=== PATIENT | female | born 1945 | race Caucasian/White ===

== ENCOUNTER 2016-06-19 09:59 | Inpatient (IN) | payer MEDICARE, OTHER ==
[~2016-06-19] VITALS: Ht 162.6 cm; Wt 93.5 kg
[~2016-06-19 09:59] MED LIST: ASPI-558 PO; ATEN100T77 PO; ESOM40CA24 PO; ESTR1TAB88 PO; FISH1CAP29 PO; GEMF600T3 PO; LEVO50TA11 PO; MULT-795 PO; PRAM0.259 PO; SENN-125 PO; TIOT18CA6 INH; TRIA-15 PO; VITA1CAP PO
--- OUTSIDE RECORDS SUMMARY | 2016-06-19 10:01 | XMS REPORT | Continuity of Care Document ---
Author Author [facility] Organization [facility] Address Unknown Phone Unavailable Allergies Active Description Code Type Severity Reaction Onset Reported/Identified Relationship to Patient Clinical Status Yes Sulfa (Sulfonamide Antibiotics) Sulfa (Sulfonamide Antibiotics) Drug Allergy Mild RASH 2014 Yes atorvastatin calcium atorvastatin calcium Drug Allergy Unknown "CAN'T TOLERATE" 10/05/2014 Yes choline fenofibrate choline fenofibrate Drug Allergy Unknown "CAN'T TOLERATE" 10/05/2014 Yes ciprofloxacin ciprofloxacin Drug Allergy Unknown UNKNOWN 10/05/2014 Yes ciprofloxacin HCl ciprofloxacin HCl Drug Allergy Unknown UNKNOWN 10/05/2014 Yes ezetimibe ezetimibe Drug Allergy Unknown "CAN'T TOLERATE" 10/05/2014 Yes rosuvastatin calcium rosuvastatin calcium Drug Allergy Unknown "CANT TOLERATE" 10/05/2014 Medications Problems Procedures Results Encounters ACCT No. Visit Date/Time Discharge Status Pt. Type Provider Facility Loc./Unit Complaint [id number] 10/05/2014 17:18:00 2014 19:00:00 DIS Emergency Renetta MIRELES, Moose Harrell [facility] [id number] 01/22/2011 10:45:00 Inpatient
--- OUTSIDE RECORDS SUMMARY | 2016-06-19 10:01 | XMS REPORT ---
Author Author [facility] Organization Unknown Address Unknown Phone Unavailable Care Team Providers Care Iron Piler Name Role Phone UNASSIGNED DOCTORMD DOCTOR PP [phone] Reason For Visit Chief Complaint PAD,PA W PROB S HAWK-LT COMMON FEMORAL Social History Functional Status Vital Signs Results Problems Encounter Diagnosis No relevant problems exist. Encounters Encounter Diagnosis No relevant problems exist. Plan of Care Procedures No relevant procedures performed. Immunizations No immunizations administered or ordered. Hospital Course Hospital Discharge Instructions Allergies, Adverse Reactions, Alerts * lisinopril causes Severe tongue swelled. * Trilipix causes Severe tongue swelled. * Norvasc causes Unknown. * Cipro causes Unknown. * Sulfa (Sulfonamide Antibiotics) causes Unknown. * Ajgdxew-Itd-Ust Reductase Inhibitors causes Muscle Pain. * No Latex Allergy. * No IV Contrast Allergy. Medication It is the responsibility of the patient or patient representative personal service to confirm the list of medications with either the patient's personal care provider or the patient's follow-up care provider to ensure the patient has an appropriate list of medications to take at home. Discharge medications New medications* clopidogrel 75 mg Tablet, Ordered By: PARDEEP SERVIN MD Directions: 1 tablet oral daily Continued medications* triamterene-hydrochlorothiazid 75 mg-50 mg Tablet, Ordered By: PARDEEP SERVIN MD Directions: 1 tablet oral daily * atenolol 100 mg Tablet, Ordered By: PARDEEP SERVIN MD Directions: 1 tablet oral twice a day * Centrum Silver 1 tablet oral daily last dose 10-12-13 * Co-Enzyme Q 10-50 mg 1 capsule oral daily last dose 10-12-13 * Fish oil 1200 mg 1 capsule daily last dose 10-11-13 * estradiol 1 mg Tablet, Ordered By: PARDEEP SERVIN MD Directions: 1 tablet oral daily * gemfibrozil 600 mg Tablet, Ordered By: PARDEEP SERVIN MD Directions: 1 tablet oral twice a day * levothyroxine 50 mcg Tablet, Ordered By: PARDEEP SERVIN MD Directions: 1 tablet oral daily * esomeprazole magnesium (NexIUM) 40 mg capsule,delayed release(DR/EC), Ordered By: PARDEEP SERVIN MD Directions: 1 capsule oral daily * Poly-Iron 150 mg 1 capsule oral daily last dose 10-12-13 * aspirin 81 mg tablet,chewable, Ordered By: KELSIE Estrada HEADINGS Directions: 1 tablet oral daily Stopped medications* None
--- OUTSIDE RECORDS SUMMARY | 2016-06-19 10:02 | XMS REPORT ---
Author Author [facility] Organization Unknown Address Unknown Phone Unavailable Care Team Providers Care Plastic Outfitter Name Role Phone UNASSIGNED DOCTOR MD ALINE DOCTOR PP [phone] Reason For Visit Chief Complaint UNSTABLE ANGINA PVD Social History Functional Status Vital Signs Results Problems Encounter Diagnosis No relevant problems exist. Encounters Encounter Diagnosis No relevant problems exist. Plan of Care Procedures * Completed , on 08/04/2010 12:00 AM * Completed , on 08/04/2010 12:00 AM * Completed , on 08/04/2010 12:00 AM * Completed , on 08/04/2010 12:00 AM Immunizations No immunizations administered or ordered. Hospital Course Hospital Discharge Instructions Allergies, Adverse Reactions, Alerts * lisinopril causes Severe tongue swelled. * Trilipix causes Severe tongue swelled. * Norvasc causes Unknown. * Cipro causes Unknown. * Sulfa (Sulfonamide Antibiotics) causes Unknown. * Ipajabl-Vft-Htp Reductase Inhibitors causes Muscle Pain. * No Latex Allergy. * No IV Contrast Allergy. Medication It is the responsibility of the patient or patient merchandiser retail representative to confirm the list of medications with either the patient's personal care provider or the patient's follow-up care provider to ensure the patient has an appropriate list of medications to take at home. Discharge medications New medications* clopidogrel (Plavix) 75 mg Tablet, Ordered By: PARDEEP SERVIN MD Directions: 1 tablet oral daily Continued medications* atenolol 100 mg Tablet, Ordered By: PARDEEP SERVIN MD Directions: 1 tablet oral twice a day * lomzqyvn-rpy-dfkv-FA-lutein (Centrum Silver Women) 8 mg iron-400 mcg-300 mcg Tablet, Ordered By: PARDEEP SERVIN MD Directions: 1 tablet oral daily * coQ10 (ubiquinol) 50 mg Capsule, Ordered By: PARDEEP SERVIN MD Directions: 1 capsule oral daily * docosahexanoic acid 1200 mg Capsule, Ordered By: PARDEEP SERVIN MD Directions: 1 capsule oral daily * esomeprazole magnesium (NexIUM) 40 mg capsule,delayed release(DR/EC), Ordered By: PARDEEP SERVIN MD Directions: 1 capsule oral daily before breakfast * conjugated estrogens (Premarin) 0.9 mg Tablet, Ordered By: PARDEEP SERVIN MD Directions: 1 tablet oral daily with breakfast * triamterene-hydrochlorothiazid 75 mg-50 mg Tablet, Ordered By: PARDEEP SERVIN MD Directions: 1 tablet oral daily * pramipexole (Mirapex) 0.25 mg Tablet, Ordered By: PARDEEP SERVIN MD Directions: 1 tablet oral three times a day * gemfibrozil 600 mg Tablet, Ordered By: PARDEEP SERVIN MD Directions: 1 tablet oral twice a day * levothyroxine 50 mcg Tablet, Ordered By: PARDEEP SERVIN MD Directions: 1 tablet oral daily * polysaccharide iron complex 150 mg iron Capsule, Ordered By: PARDEEP SERVIN MD Directions: 1 capsule oral daily * aspirin 81 mg tablet,chewable, Ordered By: PARDEEP SERVIN MD Directions: 1 tablet oral daily * albuterol sulfate 90 mcg HFA Aerosol Inhaler, Ordered By: PARDEEP SERVIN MD Directions: 1 puff by inhalation four times daily PRN shortness of breath Stopped medications* None
--- OUTSIDE RECORDS SUMMARY | 2016-06-19 10:02 | XMS REPORT | Continuity of Care Document ---
Author Author [facility] Organization [facility] Address Unknown Phone Unavailable Support Name Relationship Address Phone KING DEJESUS MD Caregiver [address] [place] [address] Unavailable KEVIN HOFFMAN DO Caregiver [address] [place] [address] Unavailable MIROSLAVA RATLIFF Next Of Kin [address] [place] [address] Insurance Providers Guarantor Peng Ratliff Address [address] [place] [address] Email DENIED/NO TO PT PORT Payer [place] Policy Number [id number] Subscriber's Name Peng Ratliff Relationship 18 Self Group Number [id number] Effective Date 08 Payer Medicare Policy Number [id number] Subscriber's Name Peng Ratliff Relationship 18 Self Effective Date 08 Advance Directives Directive Response Recorded Date/Time Ordered Resuscitation Status Full Code 03/11/16 2:34pm Resuscitation Documents on File Y POSSIBLY 03/12/16 7:52am DPOA for Healthcare Only No 03/12/16 7:52am Living Will No 03/12/16 7:52am Problems Active Problems Medical Problem Onset Date Status Alcohol intoxication Unknown Acute COPD exacerbation Unknown Acute Essential (primary) hypertension Unknown Chronic Fall Unknown Acute Fibromyalgia Unknown Chronic Hematoma of scalp Unknown Acute Hypercholesteremia Unknown Chronic Rib pain on left side Unknown Acute Medications Current Home Medications Medication Dose Units Route Directions Days Qty Instructions Start Date Aspirin (Aspir 81) 81 Mg Tablet. 1 Tab Oral Daily 03/11/10 Atenolol 100 Mg Tablet 1 Tab Oral Twice A Day 12/13/08 Esomeprazole Mag Trihydrate (Nexium) 40 Mg Capsule. 1 Tab Oral Daily 12/13/08 Estradiol 1 Mg Tablet 1 Tab Oral Daily 03/08/13 Fish Oil/Shirley-3 Fatty Acids (Fish Oil 1,000 Mg Capsule) 1 Cap Capsule 1 Cap Oral Daily 12/13/08 Gemfibrozil 600 Mg Tablet 1 Tab Oral Twice A Day 03/26/15 Levothyroxine Sodium 50 Mcg Tablet 1 Tab Oral Daily 03/26/15 Multivitamins W-Minerals/Lut (Centrum Silver Tablet) 1 Tab Tablet 1 Tab Oral Daily 12/13/08 Pramipexole Di-Hcl (Pramipexole Dihydrochloride) 0.25 Mg Tablet 1 Tab Oral Three Times A Day 03/26/15 Sennosides/Docusate Sodium (Stool Softener Tablet) 1 Each Tablet 1 Tab Oral Daily 03/26/15 Tiotropium [place] (Spiriva) 18 Mcg Cap.w.dev 1 Puff Inhalation Daily 03/08/13 Triamterene/Hydrochlorothiazid (Triamterene-Hctz 75-50 Tab) 1 Tab Tablet 1 Tab Oral Daily 12/13/08 Vitamin B Complex 1 Each Capsule 1 Cap Oral Daily 03/11/16 Past Home Medications Medication Directions Ordered Status Clopidogrel Bisulfate (Plavix) 75 Mg Tablet, 75 Mg Oral Daily 03/10/10 Discontinued Dicyclomine Hcl 10 Mg Capsule, 10 Mg Oral Three Times A Day 12/13/08 Discontinued Social History Social History Problem Response Recorded Date/Time Onset Date Status Reason for Hospitalization COLONOSCOPY 03/12/2016 10:50am Not Applicable Not Applicable Chewing Tobacco Status No 03/08/2013 1:55pm Not Applicable Not Applicable Hx Substance Use No 03/12/2016 7:55am Not Applicable Not Applicable Hx Alcohol Use No 03/12/2016 7:55am Not Applicable Not Applicable Has the pt used tobacco in the last 12 months Yes 03/12/2016 7:55am Not Applicable Not Applicable Query Response Start Date Stop Date Smoking Status Current every day smoker Hospital Discharge Instructions Instructions: Care Instructions: I was in the hospital because (patient own words): COLONOSCOPY Discharge Diet: Resume previous diet Discharge Activity: Restricted today, as tolerated tomorrow. Follow Up Appointments: None Pending Lab / Results: No Pending Lab Expected Signs/Symptoms: None Notify Physician If: Severe abdominal pain. During Business Hours:: Please call the physician's office at [phone] and choose option 2. After Business Hours:: Please call [phone] and have the front end loader operator page Dr. Dejesus. Pain Management/Treatment: N/A Wound/Incision Care: N/A Condition at time of discharge: Good Plan of Care Discharge Date 03/12/16 11:45am Prescriptions See Medication Section Functional Status Query Response Date Recorded Ability to complete ADL's impeded by No change March 12, 2016 7:52am Allergies, Adverse Reactions, Alerts Allergen Type Severity Reaction Status Last Updated amlodipine besylate Allergy Unknown Active 03/12/16 atorvastatin calcium Allergy Mild ACHY Active 03/12/16 fenofibrate,micronized Allergy Mild INTOLERANT TO THIS MED Active 03/12/16 rosuvastatin calcium Allergy Mild ACHY Active 03/12/16 Fenofibrate Nanocrystallized Allergy Mild INTOLERANT TO THIS MED Active Choline Fenofibrate Allergy Unknown Active 03/12/16 Sulfa (Sulfonamide Antibiotics) Allergy Unknown Active 03/12/16 Lisinopril Allergy Unknown TOUNGE SWELLING Active 03/12/16 Cefdinir Adverse Reaction Unknown Active 03/12/16 Colesevelam Adverse Reaction Mild DOES NOT TOLORATE Active 03/12/16 Ezetimibe Allergy Mild ACHY Active 03/12/16 Immunizations Query Response on File Recorded Date/Time Hx Influenza Vaccination Y fall 201403/12/16 7:55am Hx Pneumococcal Vaccination Y 201403/12/16 7:55am Hx Tetanus, Diptheria, Pertussis UNKNOWN 09/30/14 12:44am Hx Influenza Vaccination Y fall 201403/12/16 7:55am Hx Tetanus Diptheria [facility] 09/30/14 12:44am Hx Tetanus, Diptheria, Pertussis UNKNOWN 09/30/14 12:44am Vital Signs Acute Vital Signs Vital Response Date/Time Temperature (Fahrenheit) 96.8 deg F (96.8 - 99.1) 03/12/2016 10:31am Temperature (Calculated Celsius) 36.81405 degrees C (36.0 - 37.3) 03/12/2016 10:31am Temperature Source Temporal 03/12/2016 10:31am Pulse Rate (adult) 74 bpm (60 - 100) 03/12/2016 11:01am Respiratory Rate 20 breaths/min (10 - 20) 03/12/2016 11:01am O2 Sat by Pulse Oximetry 95 % (90 - 100) 03/12/2016 11:01am Oxygen Delivery Method Room Air 03/12/2016 11:01am Blood Pressure 149/65 mm Hg 03/12/2016 11:01am Blood Pressure Source Automatic Cuff 03/12/2016 11:01am Height (Feet) 5 feet 03/12/2016 7:36am Height (Inches) 5.75 inches 03/12/2016 7:36am Weight (Kilograms) 89.400 kg 03/12/2016 7:36am Body Mass Index (BMI) 32.1 03/12/2016 7:36am Results No known relevant diagnostic tests, laboratory data and/or discharge summary. Procedures Procedure Status Date Provider(s) Colonoscopy with polypectomy and biopsy Completed 03/12/16 KING DEJESUS MD Encounters Encounter Location Arrival/Admit Date Discharge/Depart Date Attending Provider Departed [facility] 03/12/16 7:20am 03/12/16 11 :45am KING DEJESUS MD
--- NOTE | 2016-06-19 10:03 | NUR ---
DR LOYD IN
[2016-06-19] MEDS ORDERED: NORMAL SALINE 1,000 ML IV ONE (10:09)
--- OUTSIDE RECORDS SUMMARY | 2016-06-19 10:14 | XMS REPORT ---
Author Author [facility] Organization Unknown Address Unknown Phone Unavailable Care Team Providers Care Petroleum Geology Faculty Member Name Role Phone UNASSIGNED DOCTORMD DOCTOR PP [phone] Reason For Visit Chief Complaint PAD,PA W [...] * Sulfa (Sulfonamide Antibiotics) causes Unknown. * Ymargwj-Szc-Frp Reductase Inhibitors causes Muscle Pain. * No Latex Allergy. * No IV Contrast Allergy. Medication It is the responsibility of the patient or patient admissions representative to confirm the list of medications [...]
[2016-06-19] MEDS ORDERED: ALBUTEROL/IPRATROPIUM INHAL. 2.5mg-0.5mg/3ml Neb. AEROSOL ONE (10:15)
--- OUTSIDE RECORDS SUMMARY | 2016-06-19 10:15 | XMS REPORT | Continuity of Care Document ---
Author Author [facility] Organization [facility] Address Unknown Phone Unavailable Allergies Active [...] Status Pt. Type Provider Facility Loc./Unit Complaint [id number] 10/05/2014 17:18:00 2014 19:00:00 DIS Emergency Renetta MIRELES, Moose Harrell [facility] [id number] 01/22/2011 10:45:00 Inpatient
--- OUTSIDE RECORDS SUMMARY | 2016-06-19 10:15 | XMS REPORT ---
Author Author [facility] Organization Unknown Address Unknown Phone Unavailable Care Team Providers Care Institutional Custodian Name Role Phone UNASSIGNED DOCTOR MD ALINE DOCTOR PP [phone] Reason For Visit Chief Complaint UNSTABLE ANGINA [...] * Sulfa (Sulfonamide Antibiotics) causes Unknown. * Ofmgkov-Efb-Zyx Reductase Inhibitors causes Muscle Pain. * No Latex Allergy. * No IV Contrast Allergy. Medication It is the responsibility of the patient or patient in store marketing representative to confirm the list of medications [...] 1 tablet oral twice a day * tjilrpou-nac-fjga-FA-lutein (Centrum Silver Women) 8 mg iron-400 mcg-300 [...]
[2016-06-19] MEDS ORDERED: RESV1TAB PO (10:25)
[2016-06-19] MEDS ORDERED: IRON1CAP3 PO (10:25)
--- NOTE | 2016-06-19 10:25 | ERPDOC ---
Departure Disposition Decision Date: Jun 19, 2016 Disposition Decision Time: 12:45 Disposition: 02 TO [facility] Impression Impression Impression: Primary Impression: Pneumonia Additional Impression: Hypoxemia Severity: Moderate Condition: Stable Seen By: Physician only Referrals: KEVIN HOFFMAN DO (Family) Problems/Meds/Labs Reviewed?: Yes Medications reviewed and manag: Yes Follow up care ordered?: Yes Mental Status: Alert HPI - Dyspnea General Chief Complaint: Dyspnea/Respdistress Stated Complaint: SOA Time Seen by Provider: 10:09 HPI - Dyspnea Initial Comments Very pleasant 70-year-old female presents with dyspnea. Patient was brought in by EMS due to increasing sensation of dyspnea. She was 94% on room air when they arrived, however she was tripoding over trying to get breath. No nausea vomiting no diarrhea. She has had episodes like this previously. She did go to see her chemicals distiller yesterday, to have a vascular stent placed in each leg to increase blood flow, however when she arrived there they were concerned about her heart and instead did a cardiac catheter which showed one vessel at approximately 50%, per the patient. She is to go back next week to have the rest of the procedure done. Today she does not have any actual chest pain, but rather the respiratory issues, she called and spoke to her physician who told her to come to the emergency department as she may be heading towards an acute bronchitis. Patient does smoke 10-12 cigarettes a day, and has not quit despite frequent and multiple recommendations to do so. Allergies: Coded Allergies: Fenofibrate Nanocrystallized (Verified Allergy, Mild, INTOLERANT TO THIS MED, 06/19/16) atorvastatin calcium (Verified Allergy, Mild, ACHY, 06/19/16) ezetimibe (Verified Allergy, Mild, ACHY, 06/19/16) fenofibrate,micronized (Verified Allergy, Mild, INTOLERANT TO THIS MED, ) rosuvastatin calcium (Verified Allergy, Mild, ACHY, 06/19/16) Choline Fenofibrate (Verified Allergy, Unknown, 06/19/16) Sulfa (Sulfonamide Antibiotics) (Verified Allergy, Unknown, 06/19/16) amlodipine besylate (Verified Allergy, Unknown, 06/19/16) lisinopril (Verified Allergy, Unknown, TOUNGE SWELLING, 06/19/16) colesevelam (Verified Adverse Reaction, Mild, DOES NOT TOLORATE, 06/19/16) cefdinir (Verified Adverse Reaction, Unknown, 06/19/16) Past History Patient Surgical History Back surgery Hemorrhoid surgery Past Medical History Metabolic: hypercholesterolemia, hypertension Neurological: fibromyalgia Surgical History General: colonoscopy Family History Family PMH: FOUND: diabetes Vaccines Hx Influenza Vaccination: Yes (FALL 2014) Hx Pneumococcal Vaccination: Yes (2014) Social History Does patient use chewing tobac: No Second Hand Exposure: No Substance Use Type: does not use Substance last used: unknown Last Drink: unknown Record Review Pertinent history updated: Yes Review of Systems Cardiovascular Cardiac: see HPI Pulmonary Respiratory: see HPI All other Systems All Other Systems: Reviewed and Negative Physical Exam General General Nourishment: well nourished, well developed, appears stated age, adult Distress Description Patient is anxious, does not feel like she is getting enough air. General Body Habitus: well groomed Vitals and Pain First Documented Vital Signs Date Time Temp Pulse Resp B/P Pulse Ox O2 Delivery O2 Flow Rate FiO2 06/19/16 10:00 98.4 76 24 198/77 94 Room Air 06/19/16 10:59 2.00 Weight: Kilograms: 95.900 Height (feet): 5 Height (inches): 4.00 Triage Pain Scale: Normal Exams: Head: Normocephalic w/o trauma Neck: Full range of motion, without adenopathy, JVD, bruits or thyromegaly Chest/Resp: Clear all do, with good airflow, and symmetry bilaterally CV: Regular rate and rhythm, without murmur or gallop, Pulses 2+ all extremities, capillary refill, <2 seconds all ext., no pedal edema noted Abdomen: Bowel sounds positive, soft, non-tender, non-distended, no hepatosplenomegaly, masses or bruits noted Neurologic: Patient is alert, and oriented, cranial nerves, motor/sensory/ cerebellar, exams w/o gross deficits, to observation Psychiatric: Patient exhibits, appropriate attention, emotion and affect Differential Diagnoses Considering: Acute Bronchitis, Acute Respiratory Failure, Asthma Exacerbation, CHF, COPD Exacerbation, Costochondritis, Pneumonia, Pulmonary Edema, Pulmonary Embolus Progress Results/Orders Orders Procedure Category Date Status Time Cmp - Comprehensive LAB 06/19/16 Complete Metabolic 10:09 Probnp LAB 06/19/16 Complete 10:09 Cbc W/Auto LAB 06/19/16 Complete Diff-Reflex Manual 10:09 Blood Culture GUZMAN 06/19/16 In Process 10:09 D-Dimer LAB 06/19/16 Complete 10:09 Troponin I W LAB 06/19/16 Complete Hemolysis Index 10:09 Influenza A/B Screen LAB 06/19/16 Complete 10:09 EKG EKG 06/19/16 Logged 10:09 Chest, Pa & Lateral RAD 06/19/16 Taken 10:09 Iv Lock (Ed Only) EDM 06/19/16 Transmitted 10:09 Normal Saline (Normal PHA 06/19/16 In Process Saline Iv) 10:09 Peak Flow Measurement RT 06/19/16 Logged 10:09 Albuterol/Ipratropium PHA 06/19/16 Complete (Duoneb) 10:15 Methylprednisolone PHA 06/19/16 Complete Sod Succ (Solu-Medrol 10:15 Oxygen Administration EDM 06/19/16 Transmitted 10:09 UA, LAB 06/19/16 Complete Dip&Micro(Complete) & 11:09 Levofloxacin 750 Mg PHA 06/19/16 In Process Ivpb (Levaquin 750 M 12:30 Place In Facility: ED ADM 06/19/16 Verified Lab Results Laboratory Tests Test 06/19/16 10:20 06/19/16 11:09 White Blood Count 11.5T/MM3 Red Blood Count 3.69M/MM3 Hemoglobin 10.8GM/DL Hematocrit 32.4% Mean Corpuscular Volume 87.8UM3 Mean Corpuscular Hemoglobin 29.3UUG Mean Corpuscular Hemoglobin Concent 33.3GM/DL RDW Standard Deviation 48.1FL Platelet Count 185T/MM3 Mean Platelet Volume 10.1UM3 Immature Granulocyte % (Auto) 0.3% Neutrophils (%) (Auto) 76.5% Lymphocytes (%) (Auto) 11.4% Monocytes (%) (Auto) 10.1% Eosinophils (%) (Auto) 1.5% Basophils (%) (Auto) 0.2% Absolute Immature Granulocyte (auto 0.03T/MM3 Absolute Neutrophils (auto) 8.8T/MM3 Absolute Lymphocytes (auto) 1.3T/MM3 Absolute Monocytes (auto) 1.2T/MM3 Absolute Eosinophils (auto) 0.2T/MM3 Absolute Basophils (auto) 0.0T/MM3 D-Dimer < 150NG/ML Turbidity Sodium Level 134MEQ/L Potassium Level 4.0MEQ/L Chloride Level 99MEQ/L Carbon Dioxide Level 25MEQ/L Anion Gap 10MEQ/L Blood Urea Nitrogen 10.0MG/DL Creatinine 0.5MG/DL Glomerular Filtration Rate Calc 121 BUN/Creatinine Ratio 20RATIO Glucose Level 115MG/DL Calculated Osmolality 258MOSM/KG Calcium Level 9.2MG/DL Total Bilirubin 1.10MG/DL Icterus Index Aspartate Amino Transf (AST/SGOT) 39U/L Alanine Aminotransferase (ALT/SGPT) 35U/L Alkaline Phosphatase 72U/L Troponin I < 0.012ng/ml EH-Yah-O-Type Natriuretic Peptide 1140PG/ML Total Protein 7.2G/DL Albumin 4.0G/DL Globulin 3.2G/DL Albumin/Globulin Ratio 1.3RATIO Chemistry Specimen Hemolysis Influenza Type A Antigen Negative Influenza Type B Antigen Negative Urine Collection Type Voided-not cc-midstr Urine Color Yellow Urine Turbidity Cloudy Urine pH 6.0 Urine Specific [place] <=1.005 Urine Protein Negative Urine Glucose (UA) Negative Urine Ketones Negative Urine Blood 1+ Urine Nitrite Negative Urine Bilirubin Negative Urine Urobilinogen 0.2EU/DL Urine Leukocyte Esterase 3+ Urine RBC 5-10/HPF Urine WBC 10-20/HPF Urine Squamous Epithelial Cells 0-5 Urine Transitional Epithelial Cells 1-3/HPF Urine Bacteria 1+ Urine Culture Indicated Cult not indicated Medications Current ED Medications Sodium Chloride (Normal Saline IV) 1,000 ml @ 250 mls/hr Q4H ONCE IV Last administered on 06/19/16 10:21; Start 06/19/16 at 10:09; Stop 06/19/16 at 14:08 Albuterol/ Ipratropium (Duoneb) 3 ml O ONCE AEROSOL Last administered on 10:35; Start 06/19/16 at 10:15; Stop 06/19/16 at 10:16; Status DC Methylprednisolone Sodium Succinate 125 mg 125 mg O ONCE IV Last administered on 06/19/16 10:21; Start 06/19/16 at 10:15; Stop 06/19/16 at 10:16; Status DC Levofloxacin/ Dextrose/Water (LEVAQUIN 750 mg IVPB/D5W) 150 ml @ 100 mls/hr O ONCE IV Last administered on 06/19/16t 12:33; Start 06/19/16 at 12:30; Stop at 13:59 Progress Progress Pneumonia identified on x-ray. Patient is mildly elevated white count and requiring oxygen supplementation at 3 L/m nasal cannula. The patient received DuoNeb treatment which improved her breathing, she also received 125 mg of Solu- Medrol IV after the CBC was drawn. Blood cultures were obtained. Spoke with Dr. Patel, who is hospitalist. Patient is being admitted to hospitalist service with pneumonia has main diagnosis. She was given Levaquin 750 mg IV piggyback as she has an allergy to cephalosporins. She did have cardiac catheter on Tuesday which was negative, giving us significant reassurance that there is no cardiac involvement in this at this time. 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 AMELIA LOYD MD Jun 19, 2016 10:25
[2016-06-19] MEDS ORDERED: HERBAL LAX PO (10:29)
--- NOTE | 2016-06-19 10:34 | NUR ---
O2 SAO2 IS DECREASING TO 88% ON RA. RT HERE TO DO AERO [place]
[2016-06-19 10:43] LABS: BASOPHILS % (AUTO) 0.2 % (0-2); EOSINOPHILS # (AUTO) 0.2 T/MM3 (0-0.5); EOSINOPHILS % (AUTO) 1.5 % (0-4); HCT - HEMATOCRIT 32.4 % (36-46); HGB - HEMOGLOBIN 10.8 GM/DL (12-16); IMMATURE GRANULOCYTE # (AUTO) 0.03 T/MM3 (0.00-0.03); IMMATURE GRANULOCYTE % (AUTO) 0.3 % (0.0-0.5); LYMPHOCYTES # (AUTO) 1.3 T/MM3 (1-4.8); LYMPHOCYTES % (AUTO) 11.4 % (23-45); MEAN CORPUSCULAR HGB 29.3 UUG (26-34); MEAN CORPUSCULAR HGB CONC(MCHC 33.3 GM/DL (31-37); MEAN CORPUSCULAR VOLUME 87.8 UM3 (80-100); MEAN PLATELET VOLUME 10.1 UM3 (9.4-12.4); MONOCYTES # (AUTO) 1.2 T/MM3 (0-0.8); MONOCYTES % (AUTO) 10.1 % (0-9.0); NEUTROPHILS #(AUTO)-ABSOLUTE 8.8 T/MM3 (1.8-7.7); NEUTROPHILS % (AUTO) 76.5 % (33-66); RED BLOOD COUNT 3.69 M/MM3 (4.00-5.20); WBC - WHITE BLOOD COUNT 11.5 T/MM3 (4.5-11.0)
[2016-06-19 10:58] LABS: ALBUMIN/GLOBULIN RATIO 1.3 RATIO (1.1-2.2); ALKALINE PHOSPHATASE 72 U/L (38-126); ALT (SGPT) 35 U/L (9-52); ANION GAP 10 MEQ/L (5-15); AST (SGOT) 39 U/L (14-36); BUN/CREATININE RATIO 20 RATIO (6-26); CALCIUM 9.2 MG/DL (8.4-10.2); CHLORIDE 99 MEQ/L (98-107); CO2 - CARBON DIOXIDE 25 MEQ/L (22-30); CREATININE 0.5 MG/DL (0.7-1.2); GLOMERULAR FILTRATION RATE 121; GLUCOSE 115 MG/DL (65-110); SODIUM 134 MEQ/L (134-144); TOTAL PROTEIN 7.2 G/DL (6.3-8.2)
[2016-06-19 11:09] LABS: INFLUENZA A AG SCREEN NEGATIVE (NEGATIVE); INFLUENZA B AG SCREEN NEGATIVE (NEGATIVE)
[2016-06-19 11:10] LABS: PROBNP 1140 PG/ML (0-175)
--- NOTE | 2016-06-19 11:13 | NUR ---
ACTIVITY UP TO COMMODE FOR UA. PT BECAME SOA WITH INCREASED ACTIVITY
[2016-06-19 11:22] LABS: BLOOD, URINE 1+ (NEGATIVE); COLOR,URINE YELLOW (YELLOW); LEUKOCYTE ESTERASE ,URINE 3+ (NEGATIVE); NITRITE,URINE NEGATIVE (NEGATIVE); UROBILINOGEN,URINE 0.2 EU/DL (NORMAL)
--- NOTE | 2016-06-19 11:25 | NUR ---
DOZING SAO2 IS 93% ON O2
--- NOTE | 2016-06-19 11:30 | NUR ---
TO [facility] PER CART
--- NOTE | 2016-06-19 11:40 | NUR ---
RETURNED FROM [facility]
[2016-06-19 11:44] LABS: SQUAMOUS EPITHELIAL CELL,UR 0-5
[2016-06-19 11:45] LABS: BACTERIA,URINE 1+ (NEGATIVE)
--- NOTE | 2016-06-19 12:06 | NUR ---
O2 INCREASED PER PT REQUEST. SHE DOESN'T FEEL LIKE 2L IS HELPING. INCREASED TO 3L
--- NOTE | 2016-06-19 12:16 | NUR ---
DR LOYD IN
[2016-06-19] MEDS ORDERED: LEVOFLOXACIN 750 mg IVPB 750 MG in D5W 150 ML IV ONE (12:30)
--- OUTSIDE RECORDS SUMMARY | 2016-06-19 12:56 | XMS REPORT ---
Author Author GENERATED, SYSTEM Organization Unknown Address Unknown Phone Unavailable Care Team Providers Care Operator Maintainer Name Role Phone UNASSIGNED DOCTORMD DOCTOR PP [phone] Reason For Visit Chief Complaint PAD,PA W [...] * Sulfa (Sulfonamide Antibiotics) causes Unknown. * Ypjohgc-Exj-Yps Reductase Inhibitors causes Muscle Pain. * No Latex Allergy. * No IV Contrast Allergy. Medication It is the responsibility of the patient or patient patient account representative to confirm the list of medications [...]
--- OUTSIDE RECORDS SUMMARY | 2016-06-19 12:56 | XMS REPORT | Continuity of Care Document ---
Author Author [facility] Organization [facility] Address Unknown Phone Unavailable Allergies [...] Status Pt. Type Provider Facility Loc./Unit Complaint [id number] 10/05/2014 17:18:00 2014 19:00:00 DIS Emergency Renetta MIRELES, Moose Harrell [facility] MARNI [id number] 01/22/2011 10:45:00 Inpatient
--- OUTSIDE RECORDS SUMMARY | 2016-06-19 12:56 | XMS REPORT ---
Author Author GENERATED, SYSTEM Organization Unknown Address Unknown Phone Unavailable Care Team Providers Care Bakery Machine Mechanic Supervisor Name Role Phone UNASSIGNED DOCTOR MD ALINE DOCTOR PP [phone] Reason For Visit Chief Complaint UNSTABLE ANGINA [...] * Sulfa (Sulfonamide Antibiotics) causes Unknown. * Ybgtpur-Cnp-Yyp Reductase Inhibitors causes Muscle Pain. * No Latex Allergy. * No IV Contrast Allergy. Medication It is the responsibility of the patient or patient sales representative groceries to confirm the list of medications with [...] 1 tablet oral twice a day * zwjmnpge-tzs-ltxx-FA-lutein (Centrum Silver Women) 8 mg iron-400 mcg-300 [...]
--- NOTE | 2016-06-19 13:04 | NUR ---
REPORT TO JESSICA JAQUEZ
--- NOTE | 2016-06-19 13:12 | NUR ---
TRANSPORT PER ACCOMPANIED BY SHARRI KAPLAN RN. PT REMAINS ON O2 FOR SHE WAS NOT ABLE TO GO WITHOUT O2 BEFORE SAO2 DROPPED BELOW 90%
[2016-06-19 13:19] VITALS: Ht 162.6 cm; Wt 93.5 kg
[2016-06-19 13:28] VITALS: BP 165/71; PULSE 86; RESP 24; TEMP 95.9; O2SAT 92
[2016-06-19] MEDS ORDERED: HYDROCODONE/CHLORPHENIRAMINE ER 5 ML LIQUID PO PRN (14:30)
[2016-06-19] MEDS ORDERED: ACETAMINOPHEN 325 MG TABLET PO PRN (14:30)
[2016-06-19] MEDS ORDERED: LORAZEPAM 2 MG/ML INJECTION IV PRN (14:30)
[2016-06-19] MEDS ORDERED: GUAIFENESIN SYRUP 200 MG/10 ML PO PRN (14:30)
[2016-06-19] MEDS ORDERED: MELATONIN 5 MG TABLET PO PRN (14:30)
[2016-06-19] MEDS ORDERED: MILK OF MAGNESIA 30 ML SUSP PO PRN (14:30)
[2016-06-19] MEDS ORDERED: ALBUTEROL/IPRATROPIUM INHAL. 2.5mg-0.5mg/3ml Neb. AEROSOL PRN (14:30)
[2016-06-19] MEDS ORDERED: BUMETANIDE 1 MG/4 ML INJECTION IV ONE (14:30)
[2016-06-19] MEDS ORDERED: ONDANSETRON 4mg/2ml INJECTION IV PRN (14:30)
[2016-06-19] MEDS ORDERED: SENNA + DOCUSATE TAB PO PRN (14:30)
[2016-06-19] MEDS ORDERED: FLUCONAZOLE 100 MG TABLET PO ONE (14:30)
[2016-06-19] MEDS ORDERED: BISACODYL 10 MG SUPPOSITORY RECTALLY PRN (14:30)
[2016-06-19 15:15] VITALS: BP 167/79; PULSE 84; RESP 24; TEMP 96.2; O2SAT 96
--- NOTE | 2016-06-19 15:20 | HPPDOC ---
ISIDRA DELANEY FISHER CLAM 06/19/16 1440: HPI - Adult Date DATE: 06/19/16 TIME: 14:25 General Chief Complaint: SOA History of Present Illness Koki Gonzalez is a 70-year-old woman who lives at home with her . She began having difficulty breathing approximately 5 days ago, and it has progressively become worse. She was having chest pain, and was seen in the clinic by Dr. Wing, and underwent heart catheterization on 06/17/16 which reportedly showed mild to moderate coronary lesion, but no stent was placed. She was dismissed home, and her shortness of breath continued to worsen. She has tried using nebulized breathing treatments which help temporarily. She has started to cough, and it is productive with yellow sputum. She now has some bilateral rib pain and posterior rib pain that is worse with cough. She has felt lightheaded, and has nearly passed out a couple different times as she was walking. She becomes terribly short of breath with even light activity, and is unable to take even a few steps without needing to stop and rest. She has had great difficulty sleeping at night because of her breathing problems. She cannot lie supine, and has to be at an angle. She notes mild sinus problems and a dry throat as well. She denies any fevers, but has felt hot and cold. She denies abdominal pain, but hasn't felt much like eating or drinking anything. She has chronic constipation. She denies any dysuria. She has had increasing leg swelling, which is also fairly new onset over the last few days. Her , Aaron, states that she has had intermittent episodes of confusion, always precipitated when she is acutely short of breath and struggling to breathe. She also hasn't been sleeping well, and has probably had a total of 8 hours of sleep over the last 4-5 days. They activated 911 on 06/19/16, and she was transferred to [facility] emergency department. She received repeated nebulized albuterol treatments. Room air saturation was documented at 87% in the emergency department. She was also given Solu-Medrol and Levaquin. Chest x-ray showed bilateral effusions and right-sided pneumonia. Urinalysis was positive for UTI. White count was slightly elevated at 11.5. Chemistries were largely unremarkable with the exception of minimal elevation in AST. Influenza A and B were negative. Dr. Patel was notified, and the patient was admitted to inpatient status for further evaluation and treatment of her community-acquired pneumonia, COPD exacerbation, possible CHF, and acute hypoxia. Length of stay is expected to exceed 2 overnights for cardiopulmonary stabilization. Past Medical History Past Medical History Patient's Medical History: (1) COPD (chronic obstructive pulmonary disease) (2) Coronary artery disease (3) Hypercholesteremia (4) Essential (primary) hypertension (5) PVD (peripheral vascular disease) Permanent Comment: 06/03/16 - ARTERIAL EXTREMITY LOWER BI 1. Greater than 75% stenosis in the right mid SFA. 2. Greater than 75% stenosis in the left distal SFA. Last Edited By: Isidra Delaney on Jun 19, 2016 14:55 (6) Hypothyroidism (7) GERD (gastroesophageal reflux disease) (8) Piper's esophagus (9) Vitamin D deficiency (10) Urinary incontinence (11) Fibromyalgia (12) Tobacco dependency (13) Degeneration of L4-L5 intervertebral disc (14) Spinal stenosis of lumbar region with radiculopathy Permanent Comment: L4-L5 degenerative disc disease and spondylosis with severe lumbar stenosis and lumbar radiculopathy Last Edited By: Isidra Delaney on Jun 19, 2016 14:48 (15) Obesity (BMI 30-39.9) Surgical History Patient's Surgical History: BTL 1973 Vaginal hysterectomy 1983 Hemorrhoidectomy 1984. Cystocele repair 2004 Biopsy of right vulvar mass in 2008. Pathology report showed hemorrhagic pseudocyst. She has had 4 surgeries for this problem. Left leg arterial stent in 2009. EGD with biopsies at GE junction and colonoscopy with biopsy and polypectomy in 2009. Pathology showed Piper's esophagitis, negative for malignancy. Polyp was diagnosed as tubular adenoma. Partial vulvectomy in 2010. Left leg procedure in [address] Wing. Radical liu-vulvectomy in 2010. EGD and 2011, again showing Piper's esophagitis on pathology. Posterior lumbar L4-L5 laminectomy and foraminotomy for nerve root compression in [address] Celis EGD and total colonoscopy with polypectomy [place] [address] Baca, diagnosed with GERD, angiodysplasia lesion of ascending colon, internal and external hemorrhoids. Heart catheterization 06/17/[address] Wing - mild disease, no stents. Current Medications Home Meds Reported Medications [Herbal Lax] No Conflict Check, 2 TAB PO HS 06/19/16 Resveratrol/Quercetin (Resveratrol Plus 100 mg Tablet) 1 Each Tablet, 1 TAB PO DAILY 06/19/16 Vitamin B Complex (Vitamin B Complex) 1 Each Capsule, 1 CAP PO DAILY 03/11/16 Gemfibrozil (Gemfibrozil) 600 Mg Tablet, 600 MG PO BID 03/26/15 Pramipexole Di-HCl (Pramipexole Dihydrochloride) 0.25 Mg Tablet, 0.25 MG PO TID 03/26/15 Levothyroxine Sodium (Levothyroxine Sodium) 50 Mcg Tablet, 50 MCG PO ACB 03/26/15 Tiotropium [place] (Spiriva) 18 Mcg Cap.w.dev, 1 PUFF INH DAILY 03/08/13 Estradiol (Estradiol) 1 Mg Tablet, 1 MG PO HS 03/08/13 Aspirin (Aspir 81) 81 Mg Tablet.dr, 81 MG PO DAILY 03/11/10 Atenolol (Atenolol) 100 Mg Tablet, 100 MG PO BID 12/13/08 Esomeprazole Mag Trihydrate (Nexium) 40 Mg Capsule.dr, 40 MG PO DAILY 12/13/08 Triamterene/Hydrochlorothiazid (Triamterene-Hctz 75-50 Tab) 1 Tab Tablet, 0.5 TAB PO DAILY 12/13/08 Allergies: Coded Allergies: Fenofibrate Nanocrystallized (Verified Allergy, Mild, INTOLERANT TO THIS MED, 06/19/16) atorvastatin calcium (Verified Allergy, Mild, ACHY, 06/19/16) ezetimibe (Verified Allergy, Mild, ACHY, 06/19/16) fenofibrate,micronized (Verified Allergy, Mild, INTOLERANT TO THIS MED, ) rosuvastatin calcium (Verified Allergy, Mild, ACHY, 06/19/16) Choline Fenofibrate (Verified Allergy, Unknown, 06/19/16) Sulfa (Sulfonamide Antibiotics) (Verified Allergy, Unknown, 06/19/16) amlodipine besylate (Verified Allergy, Unknown, 06/19/16) lisinopril (Verified Allergy, Unknown, TOUNGE SWELLING, 06/19/16) colesevelam (Verified Adverse Reaction, Mild, DOES NOT TOLORATE, 06/19/16) cefdinir (Verified Adverse Reaction, Unknown, 06/19/16) Family History Family History: Mother at age 93 of old age. She had history of TIA, dementia, and hypertension Father at age 63 of kidney cancer. Brothers have heart disease, hypertension, dyslipidemia. No family history of blood clots or clotting disorders. Social History Smoking Status: Current every day smoker (used to smoke 2 packs a day, now smokes between 12 and 15 cigarettes per day) Does patient use chewing tobac: No # of Packs/Tins per Day: 0.7 # of Years: 50 Second Hand Exposure: No Substance Use Type: does not use Substance last used: unknown Alcohol Intake: former alcohol drinker Last Drink: unknown (she used to have a couple mixed drinks each night. 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 Mendez Microbiology Professor: Dr. Wing Review of Systems Constitutional: REPORTS: chills, dizziness (lightheaded), fever, syncope (near) Eyes Vision: DENIES: vision changes ENMT Sinuses: FOUND: congestion Mouth/Throat: REPORTS: dry mouth (& throat), DENIES: change in swallowing, sore throat Pulmonary Respiratory: cough, dyspnea, sputum (yellow/dark yellow) GI Upper Abdomen: DENIES: nausea, pain, vomiting Lower Abdomen: constipation (chronic) General: DENIES: dysuria, frequency Female: menopause Musculoskeletal General: DENIES: cramps Integumentary Skin: DENIES: infections, rash Neurological General: numbness (to balls of feet), syncope (near syncope), DENIES: aphasia, headache, seizures, vertigo Psychiatric Psychiatric: anxiety (with SOA), other (insomnia), DENIES: depression Endocrine heat/cold intolerance Hematologic/Lymphatic DENIES: anemia Allergic/Immunological DENIES: frequent infections All Other Systems All Other Systems: Reviewed (remainder of 10-point ROS Neg.) Physical Exam General General Nourishment: well nourished, well developed General Body Habitus: well groomed Vital Signs Vital Signs Date Time Temp Pulse Resp B/P Pulse Ox O2 Delivery O2 Flow Rate FiO2 06/19/16 13:28 95.9 86 24 165/71 92 Nasal Cannula 3.00 Height (Feet): 5 Height (Inches): 4.00 Eyes Brief: FOUND: PERRL, NOT FOUND: scleral icterus ENMT Brief: NOT FOUND: mucosa moist (slightly dry), pharnyx erythema Neck Brief: NOT FOUND: adenopathy, nuchal rigidity Respiratory Inspection: FOUND: increased effort, tachypnea Auscultation: FOUND: decreased, NOT FOUND: rales, rhonchi, wheezes Cardiovascular Auscultation: FOUND: S1, S2, regular Peripheral Pulses: 2+: Radial (L), Radial (R) Edema: 0: Anasarca, Arm (L), Arm (R), Face, 2+: Leg (L), Leg (R) Comments Unable to palpate pedal pulses - chronic per pt report and also noted in Dr. Wing's recent office note. She has known SFA occlusions B/L. Abdomen Inspection: NOT FOUND: distention Palpation: FOUND: soft, NOT FOUND: McBurney's point tender, Rendon's sign, involuntary guarding, rebound, tender, voluntary guarding Auscultation: FOUND: normo active Comments Ecchymosis to right groin from recent heart catheterization but no palpable hematoma Lymphatic (brief) Lymphatic Brief: NOT FOUND: adenopathy Musculoskeletal (brief) Musculoskeletal Brief: NOT FOUND: tenderness (calves are nontender) Integumentary (brief) Integumentary Brief: FOUND: dry, warm Integumentary General: FOUND: dry, warm Color: FOUND: pink Neurologic (brief) Neurological Brief: FOUND: cranial 2-12 intact (grossly intact) Neurologic GCS Eye Opening: (4)Spontaneous GCS Verbal: (5)Oriented GCS Motor: (6)Obeys Commands RN Documented GCS Total: 15 Psychiatric (brief) FOUND: alert, attentive, normal affect, oriented Laboratory Laboratory Tests Test 06/19/16 10:20 06/19/16 11:09 White Blood Count 11.5T/MM3 Red Blood Count 3.69M/MM3 Hemoglobin 10.8GM/DL Hematocrit 32.4% Mean Corpuscular Volume 87.8UM3 Mean Corpuscular Hemoglobin 29.3UUG Mean Corpuscular Hemoglobin Concent 33.3GM/DL RDW Standard Deviation 48.1FL Platelet Count 185T/MM3 Mean Platelet Volume 10.1UM3 Immature Granulocyte % (Auto) 0.3% Neutrophils (%) (Auto) 76.5% Lymphocytes (%) (Auto) 11.4% Monocytes (%) (Auto) 10.1% Eosinophils (%) (Auto) 1.5% Basophils (%) (Auto) 0.2% Absolute Immature Granulocyte (auto 0.03T/MM3 Absolute Neutrophils (auto) 8.8T/MM3 Absolute Lymphocytes (auto) 1.3T/MM3 Absolute Monocytes (auto) 1.2T/MM3 Absolute Eosinophils (auto) 0.2T/MM3 Absolute Basophils (auto) 0.0T/MM3 D-Dimer < 150NG/ML Turbidity Sodium Level 134MEQ/L Potassium Level 4.0MEQ/L Chloride Level 99MEQ/L Carbon Dioxide Level 25MEQ/L Anion Gap 10MEQ/L Blood Urea Nitrogen 10.0MG/DL Creatinine 0.5MG/DL Glomerular Filtration Rate Calc 121 BUN/Creatinine Ratio 20RATIO Glucose Level 115MG/DL Calculated Osmolality 258MOSM/KG Calcium Level 9.2MG/DL Total Bilirubin 1.10MG/DL Icterus Index Aspartate Amino Transf (AST/SGOT) 39U/L Alanine Aminotransferase (ALT/SGPT) 35U/L Alkaline Phosphatase 72U/L Troponin I < 0.012ng/ml FF-Goi-N-Type Natriuretic Peptide 1140PG/ML Total Protein 7.2G/DL Albumin 4.0G/DL Globulin 3.2G/DL Albumin/Globulin Ratio 1.3RATIO Chemistry Specimen Hemolysis Influenza Type A Antigen Negative Influenza Type B Antigen Negative Urine Collection Type Voided-not cc-midstr Urine Color Yellow Urine Turbidity Cloudy Urine pH 6.0 Urine Specific Fletcher <=1.005 Urine Protein Negative Urine Glucose (UA) Negative Urine Ketones Negative Urine Blood 1+ Urine Nitrite Negative Urine Bilirubin Negative Urine Urobilinogen 0.2EU/DL Urine Leukocyte Esterase 3+ Urine RBC 5-10/HPF Urine WBC 10-20/HPF Urine Squamous Epithelial Cells 0-5 Urine Transitional Epithelial Cells 1-3/HPF Urine Bacteria 1+ Urine Culture Indicated Cult not indicated Assessment & Plan Problems: (1) Acute respiratory failure with hypoxia Status: Acute (2) COPD (chronic obstructive pulmonary disease) Status: Chronic Qualifiers: COPD type: COPD with acute exacerbation Qualified Codes: J44.1 - Chronic obstructive pulmonary disease with (acute) exacerbation (3) Pneumonia Status: Acute (4) PVD (peripheral vascular disease) Status: Chronic Assessment & Plan: 06/03/16 - US ARTERIAL EXTREMITY LOWER BI 1. Greater than 75% stenosis in the right mid SFA. 2. Greater than 75% stenosis in the left distal SFA (5) Coronary artery disease Status: Chronic (6) Hypercholesteremia Status: Chronic (7) Essential (primary) hypertension Status: Chronic (8) Hypothyroidism Status: Chronic (9) GERD (gastroesophageal reflux disease) Status: Chronic (10) Spinal stenosis of lumbar region with radiculopathy (11) Fibromyalgia Status: Chronic (12) Obesity (BMI 30-39.9) Status: Chronic (13) Tobacco dependency Status: Chronic (14) Vitamin D deficiency Status: Chronic Plan/Intensity of Service Admit to inpatient status, Dr. Patel attending. Primary care physician: Dr. Mendez. CODE STATUS: DO NOT RESUSCITATE. 1. Acute hypoxic respiratory failure - supplemental oxygen * Multiple differentials, including COPD exacerbation, CHF/pulmonary edema, community-acquired pneumonia, DVT/PE. * COPD exacerbation - she received steroids in the emergency department. Continue with prednisone 40 mg daily. DuoNeb treatments every 6 hours and as needed. * CAP - breathing treatments and Levaquin. Cough medicine is also available. * Possible CHF and pleural effusions-Bumex 0.5 mg IV 1. Request records from [facility], including cardiac catheter report and echocardiogram. * Bilateral lower extremity edema, right greater than left - venous Doppler right lower extremity. Patient has risk factors for VTE because of hormonal replacement, smoking status, obesity, and recent surgical procedure (heart catheterization). Hold estradiol. Start prophylactic Lovenox. 2. Acute encephalopathy - improved. Suspect secondary to hypoxia, possibly sleep deprivation. 3. Peripheral vascular disease, severe - both SFAs have greater than 75% occlusion. She plans to have Dr. Wing address this in the outpatient setting 4. Tobacco dependency. She is interested in quitting, consult respiratory therapy for tobacco cessation information. Nicotine patch has been ordered. 5. Insomnia and anxiety related to shortness of breath - Ativan as needed. 6. Patient reports tendency for vaginal candidiasis with minimal antibiotics. Will give Diflucan 200 mg 1. Orders were discussed with Dr. Patel. DVT Prophylaxis: Lovenox Code Status Full Code Hospital Course Summary Disclaimer The hospital course summary below is not to be considered part of the above Progress Note. Hospital Course Summary 06/19/16 Admit to inpatient status, Dr. Patel attending. Primary care physician: Dr. Mendez. CODE STATUS: DO NOT RESUSCITATE. 1. Acute hypoxic respiratory failure - supplemental oxygen * Multiple differentials, including COPD exacerbation, CHF/pulmonary edema, community-acquired pneumonia, DVT/PE. * COPD exacerbation - she received steroids in the emergency department. Continue with prednisone 40 mg daily. DuoNeb treatments every 6 hours and as needed. * CAP - breathing treatments and Levaquin. Cough medicine is also available. * Possible CHF and pleural effusions-Bumex 0.5 mg IV 1. Request records from [facility], including cardiac catheter report and echocardiogram. * Bilateral lower extremity edema, right greater than left - venous Doppler right lower extremity. Patient has risk factors for VTE because of hormonal replacement, smoking status, obesity, and recent surgical procedure (heart catheterization). Hold estradiol. Start prophylactic Lovenox. 2. Acute encephalopathy - improved. Suspect secondary to hypoxia, possibly sleep deprivation. 3. Peripheral vascular disease, severe - both SFAs have greater than 75% occlusion. She plans to have Dr. Wing address this in the outpatient setting 4. Tobacco dependency. She is interested in quitting, consult respiratory therapy for tobacco cessation information. Nicotine patch has been ordered. 5. Insomnia and anxiety related to shortness of breath - Ativan as needed. 6. Patient reports tendency for vaginal candidiasis with minimal antibiotics. Will give Diflucan 200 mg 1. PK PATEL MD 06/19/16 6949: Past Medical History Current Medications Home Meds Reported Medications [Herbal Lax] No Conflict Check, 2 TAB PO HS 06/19/16 Resveratrol/Quercetin (Resveratrol Plus 100 mg Tablet) 1 Each Tablet, 1 TAB PO DAILY 06/19/16 Vitamin B Complex (Vitamin B Complex) 1 Each Capsule, 1 CAP PO DAILY 03/11/16 Gemfibrozil (Gemfibrozil) 600 Mg Tablet, 600 MG PO BID 03/26/15 Pramipexole Di-HCl (Pramipexole Dihydrochloride) 0.25 Mg Tablet, 0.25 MG PO TID 03/26/15 Levothyroxine Sodium (Levothyroxine Sodium) 50 Mcg Tablet, 50 MCG PO ACB 03/26/15 Tiotropium [place] (Spiriva) 18 Mcg Cap.w.dev, 1 PUFF INH DAILY 03/08/13 Estradiol (Estradiol) 1 Mg Tablet, 1 MG PO HS 03/08/13 Aspirin (Aspir 81) 81 Mg Tablet.dr, 81 MG PO DAILY 03/11/10 Atenolol (Atenolol) 100 Mg Tablet, 100 MG PO BID 12/13/08 Esomeprazole Mag Trihydrate (Nexium) 40 Mg Capsule.dr, 40 MG PO DAILY 12/13/08 Triamterene/Hydrochlorothiazid (Triamterene-Hctz 75-50 Tab) 1 Tab Tablet, 0.5 TAB PO DAILY 12/13/08 Allergies: Coded Allergies: Fenofibrate Nanocrystallized (Verified Allergy, Mild, INTOLERANT TO THIS MED, 06/19/16) atorvastatin calcium (Verified Allergy, Mild, ACHY, 06/19/16) ezetimibe (Verified Allergy, Mild, ACHY, 06/19/16) fenofibrate,micronized (Verified Allergy, Mild, INTOLERANT TO THIS MED, ) rosuvastatin calcium (Verified Allergy, Mild, ACHY, 06/19/16) Choline Fenofibrate (Verified Allergy, Unknown, 06/19/16) Sulfa (Sulfonamide Antibiotics) (Verified Allergy, Unknown, 06/19/16) amlodipine besylate (Verified Allergy, Unknown, 06/19/16) lisinopril (Verified Allergy, Unknown, TOUNGE SWELLING, 06/19/16) colesevelam (Verified Adverse Reaction, Mild, DOES NOT TOLORATE, 06/19/16) cefdinir (Verified Adverse Reaction, Unknown, 06/19/16) Assessment & Plan Assessment I have independently evaluated and examined this patient. I reviewed the chart, the patient's history, and the FISHER CLAM's documented findings as above. We discussed and formulated the assessment and plan as above with additions as below: Mrs. Gonzalez has multiple chronic problems as noted above. She underwent cardiac catheterization yesterday due to recent exertional dyspnea. > 50% stenosis of a single-vessel reported. Her reports the patient has been able to walk no more than from room to room for several days and today could only take a few steps without stopping to rest and becoming very dyspneic. She denied chest pain or sputum production (until today) but has had increasing cough-especially today. She describes fevers and chills overnight with what sound like rigors. Patient reports increased edema from baseline. On examination the patient appears to be moderately dyspneic at rest, she defers history to her due to dyspnea. Breath sounds are diminished throughout and no wheezing or rhonchi are appreciated although breath sounds are absent the lower third of the right lung posteriorly and laterally. Cardiac exam regular. +2 edema RLE with pitting, +1 LLE. Chest x-ray reviewed by myself demonstrating right lower lobe infiltrate, possible infiltrate left lower lobe although less distinct and increased vascular markings. Treatment for pneumonia initiated as above. Agree with diuresis. Venous Doppler negative for DVT. In addition to above diagnoses please add: #1 normocytic anemia Plan/Intensity of Service Records requested from recent cardiac catheterization in [place], discussed with Dr. Pineda, chest x-ray reviewed by myself, laboratory data reviewed. Anticipate medical stabilization require greater than 48 hours of hospitalization. Inpatient status. ISIDRA DELANEY APRN Jun 19, 2016 14:40 PK PATEL MD Jun 19, 2016 18:59
[2016-06-19] MEDS: ENOXAPARIN 40 MG/0.4 ML INJECTION SQ SCH (15:44)
[2016-06-19] MEDS: NICOTINE 21 MG PATCH TD PRN (16:58)
[2016-06-19] MEDS: GEMFIBROZIL 600 MG TABLET PO SCH (16:59)
[2016-06-19] MEDS: PRAMIPEXOLE 0.25 MG TABLET PO SCH (16:59)
[2016-06-19] MEDS: ALBUTEROL/IPRATROPIUM INHAL. 2.5mg-0.5mg/3ml Neb. AEROSOL SCH ×2 (17:02→22:55)
[2016-06-19 17:03] VITALS: O2SAT 97
--- NOTE | 2016-06-19 17:28 | NUR ---
ADMIT PATIENT ARRIVED TO ROOM 164 ON THE MEDICAL UNIT FROM ED AT 1315 BY WC. PT IS A&OX3 AND TRANSFERS WITH 1 SBA. PT REPORTS SOA WITH ACTIVITY. VS STABLE ON 3L NC. PT DENIES CHEST PAIN. AT BEDSIDE. PATIENT ORIENTED TO SURROUNDINGS. LEFT FOREARM IV LOCK FLUSHES WELL. WILL CONTINUE TO MONITOR.
[2016-06-19 17:32] VITALS: RESP 22
[2016-06-19 20:57] VITALS: BP 167/79; PULSE 80; RESP 22; TEMP 96.2; O2SAT 97
[2016-06-19] MEDS: MENTHOL COUGH DROPS (RICOLA) MM PRN ×2 (21:44→21:46)
[2016-06-19] MEDS: BENZONATATE 200 MG CAPSULE PO PRN (21:44)
[2016-06-19] MEDS: ATENOLOL 100 MG TABLET PO SCH (21:45)
[2016-06-19 23:57] VITALS: BP 163/64; PULSE 79; RESP 18; TEMP 96.5; O2SAT 96
[2016-06-19] MEDS: DiphenhydrAMINE 25 MG CAPSULE PO PRN (23:59)
[2016-06-20] MEDS: MORPHINE SULFATE 2 MG SYRINGE IV PRN (01:16)
[2016-06-20] MEDS: ALBUTEROL/IPRATROPIUM INHAL. 2.5mg-0.5mg/3ml Neb. AEROSOL SCH ×4 (02:30→19:19)
--- NOTE | 2016-06-20 02:54 | NUR ---
sleep pt having trouble getting to sleep. Melatonin, benadryl tried 1st then MS at 0100. Pt stated her restless legs not bothering her at this time.
[2016-06-20 06:26] LABS: BASOPHILS % (AUTO) 0.1 % (0-2); HCT - HEMATOCRIT 30.1 % (36-46); HGB - HEMOGLOBIN 9.9 GM/DL (12-16); IMMATURE GRANULOCYTE # (AUTO) 0.03 T/MM3 (0.00-0.03); IMMATURE GRANULOCYTE % (AUTO) 0.3 % (0.0-0.5); LYMPHOCYTES # (AUTO) 0.9 T/MM3 (1-4.8); LYMPHOCYTES % (AUTO) 7.9 % (23-45); MEAN CORPUSCULAR HGB CONC(MCHC 32.9 GM/DL (31-37); MEAN CORPUSCULAR VOLUME 88.3 UM3 (80-100); MEAN PLATELET VOLUME 10.8 UM3 (9.4-12.4); MONOCYTES # (AUTO) 0.9 T/MM3 (0-0.8); MONOCYTES % (AUTO) 8.4 % (0-9.0); NEUTROPHILS #(AUTO)-ABSOLUTE 9.1 T/MM3 (1.8-7.7); NEUTROPHILS % (AUTO) 83.3 % (33-66); RED BLOOD COUNT 3.41 M/MM3 (4.00-5.20)
[2016-06-20] MEDS: PANTOPRAZOLE 40 MG TABLET PO SCH (06:30)
[2016-06-20] MEDS: LEVOFLOXACIN 750 MG TABLET PO SCH (06:30)
[2016-06-20] MEDS: LEVOTHYROXINE 50 MCG TABLET PO SCH (06:30)
[2016-06-20] MEDS: BENZONATATE 200 MG CAPSULE PO PRN ×2 (06:32→17:11)
[2016-06-20 06:34] LABS: ANION GAP 8 MEQ/L (5-15); BUN/CREATININE RATIO 28 RATIO (6-26); CHLORIDE 100 MEQ/L (98-107); CO2 - CARBON DIOXIDE 28 MEQ/L (22-30); CREATININE 0.5 MG/DL (0.7-1.2); GLOMERULAR FILTRATION RATE 121; GLUCOSE 149 MG/DL (65-110); POTASSIUM 3.8 MEQ/L (3.6-5); SODIUM 136 MEQ/L (134-144)
[2016-06-20 07:06] VITALS: O2SAT 97
[2016-06-20] MEDS: GEMFIBROZIL 600 MG TABLET PO SCH ×2 (07:37→17:11)
[2016-06-20 07:40] VITALS: BP 157/71; PULSE 84; RESP 18; TEMP 95.3; O2SAT 95
--- NOTE | 2016-06-20 07:45 | NUR ---
status Pt A/O x3, V/S stable on 3L. Pt denies pain at this time, restless legs doing well this shift, no PRN meds for pain. MS given 1x at 0115 to help with sleep relaxation, she was able to sleep rest of shift. Pt ambulating well in room, denies SOA or dizziness at this time. Changed to up at nikolas in room, Pt will call if SOA or needs help ambulating. Urinating well during shift, no BM.
[2016-06-20] MEDS: ASPIRIN *EC* 81mg TABLET PO SCH (08:42)
[2016-06-20] MEDS: ATENOLOL 100 MG TABLET PO SCH ×2 (08:42→20:56)
[2016-06-20] MEDS: PRAMIPEXOLE 0.25 MG TABLET PO SCH ×3 (08:42→17:11)
[2016-06-20] MEDS: POLYETHYL.GLYCOL 3350 PACKET 17gm PO SCH (08:42)
[2016-06-20] MEDS: HCTZ PO SCH (08:42)
[2016-06-20] MEDS: ENOXAPARIN 40 MG/0.4 ML INJECTION SQ SCH (08:42)
[2016-06-20] MEDS: TRIAMTERENE PO SCH (08:42)
[2016-06-20] MEDS: PredniSONE 20 MG TABLET PO SCH (08:42)
[2016-06-20 08:59] VITALS: RESP 18
[2016-06-20] MEDS ORDERED: RESVERATROL PLUS PO SCH (09:00)
[2016-06-20] MEDS: TIOTROPIUM 18mcg/cap HANDIHALER ORAL INH SCH (09:41)
--- NOTE | 2016-06-20 13:50 | DI ---
Indication: ITS.REASON: rt leg swelling PROCEDURE: US VENOUS DUPLEX, LOWER EXT RT: Encounter: Initial Comparison: None Technique: Color Doppler duplex and grayscale sonographic imaging of the right lower extremity was performed. Findings: There is no evidence for acute deep venous thrombosis in the right thigh. Specifically, serial graded compression was performed from the inguinal ligament to the popliteal bifurcation, on the right thigh, demonstrating appropriate compressibility of the deep venous system. In addition, color and pulsed Doppler demonstrate appropriate spontaneous flow, variation with respiration, and augmentation with calf compression. At the ankle, normal flow is identified in the posterior tibial veins; these vessels are also normal in caliber. Impression: No evidence of acute DVT in the right lower limb. There is a preliminary report by virtual radi[facility]. .
--- NOTE | 2016-06-20 14:25 | DI ---
INDICATION: ITS.REASON: dyspnea PROCEDURE: CHEST 2-VIEWS UPRIGHT (PA \T\ LAT) Encounter: Initial COMPARISON: March 26, 2015 FINDINGS: Increasing bilateral pleural effusions with hazy lower lobe airspace opacities. No pneumothorax. Stable bilateral peripheral densities could be due to calcified granulomas. Heart size and mediastinal contours are stable. Pulmonary vascularity is more congested. Impression: Worsening moderate CHF. .
[2016-06-20 15:00] VITALS: BP 134/62; PULSE 70; RESP 18; TEMP 97.1; O2SAT 95
--- NOTE | 2016-06-20 15:13 | PNPDOC ---
MONSERRAT FALLON V TRAVEL COTA 06/20/16 1505: Subjective Date DATE: 06/20/16 TIME: 15:02 Subjective Koki is seen this afternoon while resting in her room. She is currently on 3 liters of oxygen by nasal cannula and continues to have episodes of coughing. She feels tightness in her lungs. Overall, she feels that her breathing is better today, and can tell a difference following breathing treatments. She denies having chest pain or abdominal pain. Does request to increase bowel motivation. Objective Vital Signs Vital signs Vital Signs Date Time Temp Pulse Resp B/P Pulse Ox O2 Delivery O2 Flow Rate FiO2 06/20/16 13:37 12 06/20/16 13:37 66 06/20/16 07:40 95.3 157/71 95 Nasal Cannula 3.00 Height (Feet): 5 Height (Inches): 4.00 Weight (Kilograms): 95.900 General General Appearance: Alert, Orientated x 3, Cooperative, No Acute Distress Eyes (Brief) Eyes: FOUND: EOMI ENMT (Brief) ENMT: FOUND: mucosa moist, normal dentition, NOT FOUND: pharnyx erythema Neck (Brief) Neck: FOUND: midline, NOT FOUND: adenopathy, carotid bruits, tracheal deviation Respiratory (Brief) Respiratory: FOUND: wheezes Comments Diminished bases with faint wheezing Cardiovascular (Brief) Cardiac: FOUND: regular rate, regular rhythm, NOT FOUND: murmur, pedal edema Capillary Refill: <2 sec Abdomen (Brief) Abdominal: FOUND: BS normo active x4, soft, NOT FOUND: distended, tender Lymphatic (Brief) Lymphatic: NOT FOUND: adenopathy Musculoskeletal (Brief) Musculoskeletal: NOT FOUND: tenderness Integumentary (Brief) Integumentary: FOUND: dry, pink, warm Neurologic (Brief) Neurological: FOUND: cranial 2-12 intact Psychiatric (Brief) Psychiatric: FOUND: alert, attentive, normal affect, oriented Laboratory Laboratory Laboratory Tests 06/19/16 10:20 06/20/16 05:21 Laboratory Tests 06/19/16 10:20 06/20/16 05:21 Microbiology Microbiology Microbiology Date/Time Source Procedure Growth Status 06/19/16 10:34 Peripheral/Iv Start Blood Culture - Preliminary NO GROWTH AFTER 24 HOURS Resulted 06/19/16 10:30 Peripheral/Iv Start Blood Culture - Preliminary NO GROWTH AFTER 24 HOURS Resulted 06/19/16 19:51 Sputum Expectorated Sputum Gram Stain - Final Resulted 06/19/16 19:51 Sputum Expectorated Sputum Sputum Culture - Preliminary CULTURE INITIATED - RESULTS PENDING Resulted Assessment & Plan Problems: (1) Acute respiratory failure with hypoxia Status: Acute (2) COPD (chronic obstructive pulmonary disease) Status: Chronic Qualifiers: COPD type: COPD with acute exacerbation Qualified Codes: J44.1 - Chronic obstructive pulmonary disease with (acute) exacerbation (3) Pneumonia Status: Acute (4) PVD (peripheral vascular disease) Status: Chronic Assessment & Plan: 06/03/16 - US ARTERIAL EXTREMITY LOWER BI 1. Greater than 75% stenosis in the right mid SFA. 2. Greater than 75% stenosis in the left distal SFA (5) Coronary artery disease Status: Chronic (6) Hypercholesteremia Status: Chronic (7) Essential (primary) hypertension Status: Chronic (8) Hypothyroidism Status: Chronic (9) GERD (gastroesophageal reflux disease) Status: Chronic (10) Spinal stenosis of lumbar region with radiculopathy (11) Fibromyalgia Status: Chronic (12) Obesity (BMI 30-39.9) Status: Chronic (13) Tobacco dependency Status: Chronic (14) Vitamin D deficiency Status: Chronic (15) Anemia, normocytic normochromic Plan/Intensity of Service 06/20/16 Continue with supplemental oxygen to maintain adequate saturations. Currently requiring 3 liters. Recent does not use home oxygen. Scheduled DuoNeb breathing treatments every 6 hours and Spiriva Prednisone for pulmonary inflammation. Continue Levaquin for antimicrobial coverage, preliminary blood culture and sputum culture are negative Encourage tobacco cessation In regards to encephalopathy, patient appears to be alert, oriented and able to give specific details. Increase senna plus to scheduled given concern for constipation Lower extremity sonogram was negative for acute DVT Code Status Do Not Resuscitate Hospital Course Summary Disclaimer The hospital course summary below is not to be considered part of the above Progress Note. Hospital Course Summary 06/19/16 Admit to inpatient status, Dr. Patel attending. Primary care physician: Dr. Mendez. CODE STATUS: DO NOT RESUSCITATE. 1. Acute hypoxic respiratory failure - supplemental oxygen * Multiple differentials, including COPD exacerbation, CHF/pulmonary edema, community-acquired pneumonia, DVT/PE. * COPD exacerbation - she received steroids in the emergency department. Continue with prednisone 40 mg daily. DuoNeb treatments every 6 hours and as needed. * CAP - breathing treatments and Levaquin. Cough medicine is also available. * Possible CHF and pleural effusions-Bumex 0.5 mg IV 1. Request records from [facility], including cardiac catheter report and echocardiogram. * Bilateral lower extremity edema, right greater than left - venous Doppler right lower extremity. Patient has risk factors for VTE because of hormonal replacement, smoking status, obesity, and recent surgical procedure (heart catheterization). Hold estradiol. Start prophylactic Lovenox. 2. Acute encephalopathy - improved. Suspect secondary to hypoxia, possibly sleep deprivation. 3. Peripheral vascular disease, severe - both SFAs have greater than 75% occlusion. She plans to have Dr. Wing address this in the outpatient setting 4. Tobacco dependency. She is interested in quitting, consult respiratory therapy for tobacco cessation information. Nicotine patch has been ordered. 5. Insomnia and anxiety related to shortness of breath - Ativan as needed. 6. Patient reports tendency for vaginal candidiasis with minimal antibiotics. Will give Diflucan 200 mg 1. 06/20/16 Continue with supplemental oxygen to maintain adequate saturations. Currently requiring 3 liters. Recent does not use home oxygen. Scheduled DuoNeb breathing treatments every 6 hours and Spiriva Prednisone for pulmonary inflammation. Continue Levaquin for antimicrobial coverage, preliminary blood culture and sputum culture are negative Encourage tobacco cessation In regards to encephalopathy, patient appears to be alert, oriented and able to give specific details. Increase senna plus to scheduled given concern for constipation Lower extremity sonogram was negative for acute DVT PK PATEL MD 06/20/16 1626: Assessment & Plan Assessment I have independently evaluated and examined this patient. I reviewed the chart, the patient's history, and the TRAVEL COTA's documented findings as above. We discussed and formulated the assessment and plan as above with additions as below: Mrs. Gonzalez reports that she continues to become dyspneic intermittently but is improved from admission. Dyspnea occurs primarily just before her next breathing treatment is due. She is able to ambulate comfortably in the room today and is speaking in full sentences. Cough remains increased from baseline but she denies sputum production. Fluid balance negative a little over 1 L since admission. Respirations are nonlabored but breath sounds are diminished and she has crackles at the left greater than right base with diminished breath sounds on the base at the right. No wheezing was appreciated at time of my exam. Neck veins are not distended in cardiac rhythm is regular. There is persistent trace bilateral edema graded +1. Formal chest x-ray report did not confirm suspicion of an infiltrate but was read as CHF. Continue current antibiotics pending cultures tomorrow. Lasix today-20 mg IV and then schedule for tomorrow morning. Continues to require supplemental oxygen-new from baseline. Will contact cardiology office tomorrow for most recent cardiac assessment- heart catheter 2 days ago without reported vascular disease but ejection fraction unknown. In addition to above diagnoses please add: #1 acute congestive heart failure Plan/Intensity of Service Chest x-ray report reviewed, repeat x-ray ordered for tomorrow. Laboratory data reviewed. MONSERRAT FALLON APRN Jun 20, 2016 15:05 PK PATEL MD Jun 20, 2016 16:26
[2016-06-20] MEDS ORDERED: FUROSEMIDE 20 MG/2 ML INJECTION IV ONE (16:30)
[2016-06-20] MEDS: NICOTINE PATCH REMOVAL TD PRN (17:11)
[2016-06-20] MEDS: NICOTINE 21 MG PATCH TD PRN (17:11)
--- NOTE | 2016-06-20 18:26 | NUR ---
Status Patient has been up by self in room today. Tolerating activity well. Denies pain when asked. Weaned down to 2 L O2 by NC. Patient has numerous visitors today. Minimal needs from staff. Call light within reach.
[2016-06-20] MEDS: SENNA + DOCUSATE TAB PO SCH (20:55)
[2016-06-20 20:57] VITALS: PULSE 72; O2SAT 95
[2016-06-20 21:03] VITALS: RESP 18
--- NOTE | 2016-06-20 22:26 | NUR ---
Chart Check 24 hour chart check completed
[2016-06-21] VITALS (12 sets, daily range): BP systolic 129–162; BP diastolic 59–72; PULSE 68–84; RESP 17–22; TEMP 95.8–96.5; O2SAT 92–100
[2016-06-21] MEDS: ALBUTEROL/IPRATROPIUM INHAL. 2.5mg-0.5mg/3ml Neb. AEROSOL SCH ×4 (00:25→19:58)
[2016-06-21] MEDS: MORPHINE SULFATE 2 MG SYRINGE IV PRN (00:37)
[2016-06-21] MEDS: DiphenhydrAMINE 25 MG CAPSULE PO PRN (00:38)
[2016-06-21 06:06] LABS: ALBUMIN 3.7 G/DL (3.5-5.0); ANION GAP 6 MEQ/L (5-15); BUN/CREATININE RATIO 35 RATIO (6-26); CALCIUM 9.5 MG/DL (8.4-10.2); CHLORIDE 99 MEQ/L (98-107); CO2 - CARBON DIOXIDE 29 MEQ/L (22-30); CREATININE 0.6 MG/DL (0.7-1.2); GLOMERULAR FILTRATION RATE 98; GLUCOSE 115 MG/DL (65-110); MAGNESIUM 2.2 MG/DL (1.6-2.3); PHOSPHORUS 3.6 MG/DL (2.5-4.5); POTASSIUM 3.9 MEQ/L (3.6-5); SODIUM 134 MEQ/L (134-144)
[2016-06-21 06:34] LABS: PROBNP 808 PG/ML (0-175)
[2016-06-21] MEDS: LEVOTHYROXINE 50 MCG TABLET PO SCH (07:01)
[2016-06-21] MEDS: LEVOFLOXACIN 750 MG TABLET PO SCH (07:01)
[2016-06-21] MEDS: PANTOPRAZOLE 40 MG TABLET PO SCH (07:01)
--- NOTE | 2016-06-21 07:05 | NUR ---
Status Pt stated that she slept great during the night. This RN attempted to minimize interruptions during the night as much as possible. Pt requested PRN morphine and PRN Benadryl to facilitate sleep. On 2 L O2 via NC. VSS. Shift report given to LEONID Han.
[2016-06-21] MEDS: GEMFIBROZIL 600 MG TABLET PO SCH ×2 (07:55→17:16)
--- NOTE | 2016-06-21 08:39 | DI ---
INDICATION: ITS.REASON: CHF PROCEDURE: CHEST 2-VIEWS UPRIGHT (PA \T\ LAT) Encounter: Initial COMPARISON: June 19, 2016 FINDINGS: Small right pleural effusion is increased. Continued right basilar airspace opacity. Upper lung do are clear. No pneumothorax. Heart size and mediastinal contours are stable. Pulmonary vascular congestion is stable. Impression: Slight increase in right pleural effusion. .
[2016-06-21] MEDS: ASPIRIN *EC* 81mg TABLET PO SCH (08:49)
[2016-06-21] MEDS: POLYETHYL.GLYCOL 3350 PACKET 17gm PO SCH (08:49)
[2016-06-21] MEDS: PredniSONE 20 MG TABLET PO SCH (08:49)
[2016-06-21] MEDS: HCTZ PO SCH (08:49)
[2016-06-21] MEDS: SENNA + DOCUSATE TAB PO SCH ×2 (08:49→20:50)
[2016-06-21] MEDS: PRAMIPEXOLE 0.25 MG TABLET PO SCH ×3 (08:49→18:07)
[2016-06-21] MEDS: ENOXAPARIN 40 MG/0.4 ML INJECTION SQ SCH (08:49)
[2016-06-21] MEDS: TRIAMTERENE PO SCH (08:49)
[2016-06-21] MEDS: ATENOLOL 100 MG TABLET PO SCH ×2 (08:50→20:50)
[2016-06-21] MEDS: TIOTROPIUM 18mcg/cap HANDIHALER ORAL INH SCH (09:31)
--- NOTE | 2016-06-21 11:16 | NUR ---
CM CM VISITED PT AND SPOUSE. CM EXPLAINED ROLE AND PROVIDED CONTACT INFORMATION. PT PLANS TO RETURN HOME POST HOSPITAL STAY. PT DENIES NEEDS. PT IS AWARE TO CONTACT CM IF NEEDS ARISE.
--- NOTE | 2016-06-21 11:42 | NUR ---
AMBULATION PT AMBULATED WITH STAND BY ASSIST DOWN TO LARGE WINDOWS AND BACK, TOLERATED WELL. PT ON RA, EXPERIENCED SLIGHT SOA AFTER RETURNING TO ROOM, HOWEVER O2 SAT MEASURES 94% AT THIS TIME. O2 SAT RANGED BETWEEN 92-95% WHILE AMBULATING. WILL CONTINUE TO MONITOR.
--- NOTE | 2016-06-21 12:49 | PNPDOC ---
ISIDRA DELANEY LEASING CONSULTANT 06/21/16 1239: Subjective Date DATE: 06/21/16 TIME: 12:36 Subjective Koki states she feels much better. She is breathing on room air. She no longer has conversational dyspnea, and states she can walk to and from the bathroom without getting winded. She is expecting to go on a walk later to see how her oxygenation goes. She denies chest pain. She denies weakness/dizziness. She slept poorly again last night - this is typical for her, as she only usually sleeps 2-3 hours per night. She thinks she rested about 30 min. She has to sleep with her bed at an angle to help her breathing. She denies any nausea, and her appetite has been good. She hasn't had a BM yet but has been passing flatus. Objective Vital Signs Vital signs Vital Signs Date Time Temp Pulse Resp B/P Pulse Ox O2 Delivery O2 Flow Rate FiO2 06/21/16 11:44 84 22 94 Room Air 06/21/16 07:57 96.1 151/66 06/21/16 00:20 2.00 Height (Feet): 5 Height (Inches): 4.00 Weight (Kilograms): 94.500 General General Appearance: Alert, Orientated x 3, Well Nourished, Well Developed, No Acute Distress Eyes (Brief) Eyes: FOUND: PERRL, NOT FOUND: scleral icterus ENMT (Brief) ENMT: FOUND: mucosa moist, NOT FOUND: pharnyx erythema Respiratory (Brief) Respiratory: FOUND: clear all do, equal bilaterally Comments decreased right base Cardiovascular (Brief) Cardiac: FOUND: regular rate, regular rhythm Abdomen (Brief) Abdominal: FOUND: BS normo active x4, soft, NOT FOUND: distended, tender Extremities (Brief) Extremity : Side: Bilateral Extremity Finding: FOUND: edema (R>L) Musculoskeletal (Brief) Musculoskeletal: NOT FOUND: tenderness (calves nontender) Integumentary (Brief) Integumentary: FOUND: dry, pink, warm Psychiatric (Brief) Psychiatric: FOUND: alert, attentive, normal affect, oriented Laboratory Laboratory Laboratory Tests 06/20/16 05:21 06/21/16 05:08 Laboratory Tests 06/20/16 05:21 Microbiology Microbiology Microbiology Date/Time Source Procedure Growth Status 06/19/16 10:34 Peripheral/Iv Start Blood Culture - Preliminary NO GROWTH AFTER 48 HOURS Resulted 06/19/16 10:30 Peripheral/Iv Start Blood Culture - Preliminary NO GROWTH AFTER 48 HOURS Resulted 06/19/16 19:51 Sputum Expectorated Sputum Gram Stain - Final Resulted 06/19/16 19:51 Sputum Expectorated Sputum Sputum Culture - Preliminary CULTURE INITIATED - RESULTS PENDING Resulted Assessment & Plan Problems: (1) CHF (congestive heart failure) Status: Acute (2) Acute respiratory failure with hypoxia Status: Acute (3) COPD (chronic obstructive pulmonary disease) Status: Chronic Qualifiers: COPD type: COPD with acute exacerbation Qualified Codes: J44.1 - Chronic obstructive pulmonary disease with (acute) exacerbation (4) Pneumonia Status: Acute Assessment & Plan: Unlikely (5) PVD (peripheral vascular disease) Status: Chronic Assessment & Plan: 06/03/16 - US ARTERIAL EXTREMITY LOWER BI 1. Greater than 75% stenosis in the right mid SFA. 2. Greater than 75% stenosis in the left distal SFA (6) Coronary artery disease Status: Chronic (7) Hypercholesteremia Status: Chronic (8) Essential (primary) hypertension Status: Chronic (9) Hypothyroidism Status: Chronic (10) GERD (gastroesophageal reflux disease) Status: Chronic (11) Spinal stenosis of lumbar region with radiculopathy (12) Fibromyalgia Status: Chronic (13) Obesity (BMI 30-39.9) Status: Chronic (14) Tobacco dependency Status: Chronic (15) Vitamin D deficiency Status: Chronic (16) Anemia, normocytic normochromic Plan/Intensity of Service Acute hypoxic respiratory failure - improved, on room air this morning. Will discuss diuresis with Dr. Patel - she will likely need a higher home dose upon discharge. She's had a negative fluid balance and her weight is down 3 kg. Records requested from Dr. Wing's office. CXR - R pleural effusion but clinically improved. Sputum Gram stain - few gram pos cocci; culture pending Assess for home oxygen - will also check overnight oximetry. Suspect discharge home soon - possibly tomorrow. DVT Prophylaxis: Lovenox Code Status Do Not Resuscitate Hospital Course Summary Disclaimer The hospital course summary below is not to be considered part of the above Progress Note. Hospital Course Summary 06/19/16 Admit to inpatient status, Dr. Patel attending. Primary care physician: Dr. Mendez. CODE STATUS: DO NOT RESUSCITATE. 1. Acute hypoxic respiratory failure - supplemental oxygen * Multiple differentials, including COPD exacerbation, CHF/pulmonary edema, community-acquired pneumonia, DVT/PE. * COPD exacerbation - she received steroids in the emergency department. Continue with prednisone 40 mg daily. DuoNeb treatments every 6 hours and as needed. * CAP - breathing treatments and Levaquin. Cough medicine is also available. * Possible CHF and pleural effusions-Bumex 0.5 mg IV 1. Request records from [facility], including cardiac catheter report and echocardiogram. * Bilateral lower extremity edema, right greater than left - venous Doppler right lower extremity. Patient has risk factors for VTE because of hormonal replacement, smoking status, obesity, and recent surgical procedure (heart catheterization). Hold estradiol. Start prophylactic Lovenox. 2. Acute encephalopathy - improved. Suspect secondary to hypoxia, possibly sleep deprivation. 3. Peripheral vascular disease, severe - both SFAs have greater than 75% occlusion. She plans to have Dr. Wing address this in the outpatient setting 4. Tobacco dependency. She is interested in quitting, consult respiratory therapy for tobacco cessation information. Nicotine patch has been ordered. 5. Insomnia and anxiety related to shortness of breath - Ativan as needed. 6. Patient reports tendency for vaginal candidiasis with minimal antibiotics. Will give Diflucan 200 mg 1. 06/20/16 Continue with supplemental oxygen to maintain adequate saturations. Currently requiring 3 liters. Recent does not use home oxygen. Scheduled DuoNeb breathing treatments every 6 hours and Spiriva Prednisone for pulmonary inflammation. Continue Levaquin for antimicrobial coverage, preliminary blood culture and sputum culture are negative Encourage tobacco cessation In regards to encephalopathy, patient appears to be alert, oriented and able to give specific details. Increase senna plus to scheduled given concern for constipation Lower extremity sonogram was negative for acute DVT 06/21/16 Acute hypoxic respiratory failure - improved, on room air this morning. Will discuss diuresis with Dr. Patel - she will likely need a higher home dose upon discharge. She's had a negative fluid balance and her weight is down 3 kg. Records requested from Dr. Wing's office. CXR - R pleural effusion but clinically improved. Sputum Gram stain - few gram pos cocci; culture pending Assess for home oxygen - will also check overnight oximetry. Suspect discharge home soon - possibly tomorrow. PK PATEL MD 06/21/16 1411: Assessment & Plan Assessment I have independently evaluated and examined this patient. I reviewed the chart, the patient's history, and the LEASING CONSULTANT's documented findings as above. We discussed and formulated the assessment and plan as above with additions as below: Mrs. Gonzalez reports diuresing well yesterday after dose of IV Lasix. She is breathing much more comfortably today and on room air although desaturated to 88 % while ambulating with RT this afternoon. Cardiac catheterization report reviewed-50% stenosis mid RCA but other arteries clear, ejection fraction preserved at 60-70%. Patient reports last echocardiogram was probably 12 years ago. She additionally notes that she's been sleeping with the head of the bed elevated due to recent respiratory symptoms. Patient is speaking in full sentences currently and respirations are nonlabored at rest. There is slight decrease in breath sounds at the bases but no wheezing or crackles. There is residual edema at the ankles R>L although improved from admission. Continue diuresis, additional Lasix to be given IV now and patient will be started on Lasix daily in place of HCTZ/spironolactone. Echo to be updated and we'll obtain overnight oximetry tonight. Chest x-ray reviewed by myself, small right pleural effusion and mild increased vascular markings but improved from admission by my review. No indication of respiratory infection-Levaquin discontinued. Plan/Intensity of Service Chest x-ray by myself, outpatient records from [facility] reviewed, discussed with RT and nursing who provide supplemental history, laboratory data reviewed. Medications updated. ISIDRA DELANEY APRN Jun 21, 2016 12:39 PK PATEL MD Jun 21, 2016 14:11
[2016-06-21] MEDS: FUROSEMIDE 20 MG TABLET PO SCH (13:48)
[2016-06-21] MEDS ORDERED: FUROSEMIDE 20 MG/2 ML INJECTION IV ONE (14:00)
--- NOTE | 2016-06-21 19:40 | NUR ---
SHIFT SUMMARY PT ALERT AND ORIENTED X3. PT ON RA, DENIES SOA. DENIES PAIN AND N/V AT THIS TIME. IVL LEFT FOREARM PATENT. PT ABLE TO MAKE NEEDS KNOWN. UP AD DEBBIE, STEADY ON FEET. ADEQUATE URINE OUTPUT. CALL LIGHT WITHIN REACH.
--- NOTE | 2016-06-21 20:00 | NUR ---
resp crackles bases. Frequent cough, states minimal sputum production. Up in room without distress
[2016-06-21] MEDS: NICOTINE PATCH REMOVAL TD PRN (20:09)
[2016-06-21] MEDS: NICOTINE 21 MG PATCH TD PRN (20:09)
[2016-06-22] VITALS (8 sets, daily range): BP systolic 136–171; BP diastolic 50–69; PULSE 63–82; RESP 18; TEMP 96.1–96.3; O2SAT 93–96
--- NOTE | 2016-06-22 04:15 | NUR ---
rest slept for several hours, resp. unlabored. Oximetry recorded by RT
[2016-06-22] MEDS: ALBUTEROL/IPRATROPIUM INHAL. 2.5mg-0.5mg/3ml Neb. AEROSOL SCH ×2 (04:18→11:09)
[2016-06-22 05:31] LABS: ANION GAP 9 MEQ/L (5-15); BUN/CREATININE RATIO 33 RATIO (6-26); CALCIUM 10.4 MG/DL (8.4-10.2); CHLORIDE 96 MEQ/L (98-107); CO2 - CARBON DIOXIDE 29 MEQ/L (22-30); CREATININE 0.8 MG/DL (0.7-1.2); GLOMERULAR FILTRATION RATE 71; GLUCOSE 104 MG/DL (65-110); POTASSIUM 3.9 MEQ/L (3.6-5); SODIUM 134 MEQ/L (134-144)
[2016-06-22] MEDS: PANTOPRAZOLE 40 MG TABLET PO SCH (05:36)
[2016-06-22] MEDS: LEVOTHYROXINE 50 MCG TABLET PO SCH (05:36)
--- NOTE | 2016-06-22 06:22 | NUR ---
ACTIVITY AMBULATES IN HALLWAY, STATES FEET FEEL "ASLEEP". GAIT IS STEADY, DENIES NEEDS AT THIS TIME
[2016-06-22] MEDS: TIOTROPIUM 18mcg/cap HANDIHALER ORAL INH SCH (06:49)
[2016-06-22] MEDS: GEMFIBROZIL 600 MG TABLET PO SCH (07:50)
[2016-06-22] MEDS: ATENOLOL 100 MG TABLET PO SCH (08:23)
[2016-06-22] MEDS: ASPIRIN *EC* 81mg TABLET PO SCH (08:23)
[2016-06-22] MEDS: ENOXAPARIN 40 MG/0.4 ML INJECTION SQ SCH (08:23)
[2016-06-22] MEDS: FUROSEMIDE 20 MG TABLET PO SCH (08:23)
[2016-06-22] MEDS: SENNA + DOCUSATE TAB PO SCH (08:23)
[2016-06-22] MEDS: PRAMIPEXOLE 0.25 MG TABLET PO SCH ×2 (08:23→12:06)
[2016-06-22] MEDS: POLYETHYL.GLYCOL 3350 PACKET 17gm PO SCH (08:23)
[2016-06-22] MEDS: PredniSONE 20 MG TABLET PO SCH (08:23)
--- NOTE | 2016-06-22 12:10 | ECHOF ---
DATE 06/21/2016 INDICATION Congestive heart failure. TECHNICAL QUALITY: Technically good 2D, M-mode and Doppler echocardiographic images were submitted for interpretation. FINDINGS 1. CARDIAC CHAMBERS. Left atrium is enlarged, measures 4.8 cm. All other cardiac chambers are normal in size. Aortic root diameter is normal. RV size and contractility appear normal. 2. LV FUNCTION. Analysis reveals normal wall thickness. Normal wall motion, normal systolic function. Left ventricle appears actually hyperdynamic. EF measured 79%. Visually EF is estimated at about 70%. Diastolic dysfunction is suggested based on the E/E' of 23.5. E/A ratio is 1.7. It is suggestive of pseudo-normal pattern. 3. VALVES. Mitral valve exhibits moderate annular calcification and sclerosis especially posteriorly present. Valve excursion is normal. Tricuspid valve and aortic valve structure and motion appear normal for age with normal valve excursion. 4. DOPPLER. Analysis reveals a mitral stenosis. Study shows a maximum and mean pressure gradient of 10 and 3 mmHg, in order. Peak flow velocity of 1.6 m/sec. Moderate mitral regurgitation, moderate eccentric tricuspid regurgitation. Systolic PA pressure is estimated at 53 mmHg. Normal flow velocities throughout. Trace insufficiency involving aortic and mitral valves, neither of hemodynamic significance. 5. No evidence of pericardial effusion, intracardiac masses or demonstrable shunts. IMPRESSION 1. Left atrial enlargement. 2. Hyperdynamic left ventricle, ejection fraction measured 79%. 3. Mitral annular calcification with mild mitral stenosis and moderate mitral regurgitation. 4. Moderate tricuspid regurgitation. 5. Moderate pulmonary hypertension, systolic PA pressure estimate 53 mmHg with normal central venous pressure. 6. Diastolic dysfunction grade II/IV (pseudo-normal pattern). 7. Mild left atrial enlargement. 8. Small right-sided pleural effusion. MTDD
[2016-06-22] MEDS ORDERED: LOSARTAN 50 MG TABLET PO ONE (13:45)
[2016-06-22] MEDS ORDERED: BENZ200C36 PO (13:47)
[2016-06-22] MEDS ORDERED: FURO20TA4 PO (13:47)
[2016-06-22] MEDS ORDERED: NICO1PAT16 TD (13:47)
[2016-06-22] MEDS ORDERED: LOSA25TA2 PO (13:47)
[2016-06-22] MEDS ORDERED: IPRA3AMP AEROSOL (13:49)
--- NOTE | 2016-06-22 14:00 | NUR ---
STATUS PT ALERT AND ORIENTED X3. PT ON RA, DENIES SOA. DENIES PAIN, DENIES N/V. UP AD DEBBIE, STEADY ON FEET. IVL LEFT AC PATENT. ADEQUATE URINE OUTPUT, BM THIS SHIFT. PT ABLE TO MAKE NEEDS KNOWN. CALL LIGHT WITHIN REACH.
--- NOTE | 2016-06-22 16:05 | NUR ---
DISMISSAL PT DISMISSED BY WHEELCHAIR TO HOME AT THIS TIME, ACCOMPANIED BY AND FRIEND. DISMISSAL INSTRUCTIONS REVIEWED, QUESTIONS ANSWERED. PT EXPRESSES UNDERSTANDING OF DISMISSAL INSTRUCTIONS, INCLUDING BUT NOT LIMITED TO, S/S TO REPORT TO WELL MEDICATION REGIMEN. PRESCRIPTIONS CALLED IN TO PHARMACY BY LATANYA JAQUEZ. IV DC'D, BELONGINGS GATHERED.
--- NOTE | 2016-06-22 20:16 | DSPDOC ---
General Date Date DATE: 06/22/16 TIME: 19:51 Attending Physician Marisol Patel MD Admitting Physician Marisol Patel MD Consulting Physician Admitting Diagnosis pneumonia Discharge Diagnosis 1. Acute on chronic diastolic congestive heart failure 2. Acute hypoxic respiratory failure, resolved 3. Mitral regurgitation 4. Pulmonary hypertension 5. COPD 6. Peripheral vascular disease 7. Hypertension 8. Hyperlipidemia Procedures Echocardiogram on 06/21 demonstrated left atrial enlargement (4.8 cm), preserved LV function with ejection fraction of 79%, diastolic dysfunction, moderate mitral annular calcification and mitral regurgitation. Mild mitral stenosis with maximum gradient of 10, mean gradient 3 mmHg. Pulmonary artery pressure 53 consistent with moderate pulmonary hypertension. Laboratory Laboratory Tests Test 06/22/16 04:19 Turbidity < 20 (0-20) Sodium Level 134MEQ/L (134-144) Potassium Level 3.9MEQ/L (3.6-5) Chloride Level 96MEQ/L (98-107) Carbon Dioxide Level 29MEQ/L (22-30) Anion Gap 9MEQ/L (5-15) Blood Urea Nitrogen 26.0MG/DL (7-17) Creatinine 0.8MG/DL (0.7-1.2) Glomerular Filtration Rate Calc 71 BUN/Creatinine Ratio 33RATIO (6-26) Glucose Level 104MG/DL (65-110) Calculated Osmolality 263MOSM/KG (261-280) Calcium Level 10.4MG/DL (8.4-10.2) Icterus Index < 2 (0-7) Chemistry Specimen Hemolysis < 15 (0-25) On admission white count was 11.5 with hemoglobin 10.8, differential unremarkable. D-dimer <150. p BNP 1140 on admission, creatinine 0.5, liver enzymes unremarkable Microbiology Influenza antigen negative Blood cultures 2 negative after 72 hours Sputum culture-normal ricarda Radiology Chest x-ray on admission revealed bilateral pleural effusions and increased pulmonary vascularity consistent with CHF. Follow-up x-ray on 06/21 demonstrated slight increase in pleural effusions but partial clearing of vascular congestion. Venous Doppler on 06/20 was negative for DVT. History of Present Illness Koki Gonzalez is a 70-year-old woman who lives at home with her . She began having difficulty breathing approximately 5 days ago, and it has progressively become worse. She was having chest pain, and was seen in the clinic by Dr. Wing, and underwent heart catheterization on 06/17/16 which reportedly showed mild to moderate coronary lesion, but no stent was placed. She was dismissed home, and her shortness of breath continued to worsen. She has tried using nebulized breathing treatments which help temporarily. She has started to cough, and it is productive with yellow sputum. She now has some bilateral rib pain and posterior rib pain that is worse with cough. She has felt lightheaded, and has nearly passed out a couple different times as she was walking. She becomes terribly short of breath with even light activity, and is unable to take even a few steps without needing to stop and rest. She has had great difficulty sleeping at night because of her breathing problems. She cannot lie supine, and has to be at an angle. She notes mild sinus problems and a dry throat as well. She denies any fevers, but has felt hot and cold. She denies abdominal pain, but hasn't felt much like eating or drinking anything. She has chronic constipation. She denies any dysuria. She has had increasing leg swelling, which is also fairly new onset over the last few days. Her , Aaron, states that she has had intermittent episodes of confusion, always precipitated when she is acutely short of breath and struggling to breathe. She also hasn't been sleeping well, and has probably had a total of 8 hours of sleep over the last 4-5 days. They activated 911 on 06/19/16, and she was transferred to [facility] emergency department. She received repeated nebulized albuterol treatments. Room air saturation was documented at 87% in the emergency department. She was also given Solu-Medrol and Levaquin. Chest x-ray showed bilateral effusions and right-sided pneumonia. Urinalysis was positive for UTI. White count was slightly elevated at 11.5. Chemistries were largely unremarkable with the exception of minimal elevation in AST. Influenza A and B were negative. Dr. Patel was notified, and the patient was admitted to inpatient status for further evaluation and treatment of her community-acquired pneumonia, COPD exacerbation, possible CHF, and acute hypoxia. Length of stay is expected to exceed 2 overnights for cardiopulmonary stabilization. Hospital Course Mrs. Gonzalez was admitted to the hospitalist service on 06/19 with initial diagnosis of acute hypoxic respiratory failure. Solu-Medrol and antibiotics were initiated in the emergency room and were continued the first 2 days of the hospitalization until it became clear that presenting symptoms were result of heart failure rather than infection. Diuresis was initiated on admission and continued throughout the hospitalization with IV Lasix converted to oral Lasix at discharge. Weight was down 4 kg at discharge with discharge weight of 93.5 kg. Edema improved significantly as did hypoxia. Ambulatory oximetry on the date of discharge was unremarkable with oxygen saturation dropping no lower than 93% on room air. Nocturnal oximetry on room air obtained 06/21-06/22 demonstrated minimal hypoxia with less than 3 minutes below 90% most of which appear to be artifact. The patient reported symptomatic improvement with duoneb and breathing treatments will be continued as needed at home. Confusion present prior to admission resolved fully within 24 hours and the patient remained alert and fully oriented thereafter. Nicotine patch was initiated to help patient with tobacco cessation and tobacco cessation counseled. Patient reports tendency for vaginal candidiasis with minimal antibiotics. Will give Diflucan 200 mg 1 on the date of admission. The patient was stable for discharge on 06/22. She reported that she "feels super " and edema is significantly improved. She's been on room air for the past 24 hours and has been ambulating without assistance. Blood pressures have been moderately elevated throughout the hospitalization. Respirations are nonlabored. There are scattered crackles at the bases but airflow is good. Cardiac rhythm is regular. There is trace edema at the left ankle and +1 edema at the right ankle. Losartan added for blood pressure control and for afterload reduction at 25 mg daily. Patient is asked to follow up with Dr. Hoffman to within 1 week and to delay anticipated vascular intervention with Dr. Adkins until after blood pressure and heart failure reevaluated. >30 minutes spent on patient care and discharge care coordination today on the date of discharge. -- Problems: (1) CHF (congestive heart failure) Status: Acute Assessment & Plan: Diastolic/valvular-MR (2) Mitral regurgitation (3) Pulmonary hypertension (4) Acute respiratory failure with hypoxia Status: Resolved (5) COPD (chronic obstructive pulmonary disease) Status: Chronic (6) Pneumonia Status: Acute Assessment & Plan: Diagnosis excluded (7) PVD (peripheral vascular disease) Status: Chronic Assessment & Plan: 06/03/16 - ARTERIAL EXTREMITY LOWER BI 1. Greater than 75% stenosis in the right mid SFA. 2. Greater than 75% stenosis in the left distal SFA (8) Coronary artery disease Status: Chronic (9) Hypercholesteremia Status: Chronic (10) Essential (primary) hypertension Status: Chronic (11) Hypothyroidism Status: Chronic (12) GERD (gastroesophageal reflux disease) Status: Chronic (13) Spinal stenosis of lumbar region with radiculopathy (14) Fibromyalgia Status: Chronic (15) Obesity (BMI 30-39.9) Status: Chronic (16) Tobacco dependency Status: Chronic (17) Vitamin D deficiency Status: Chronic (18) Anemia, normocytic normochromic Code Status Do Not Resuscitate Home Meds Active Scripts Ipratropium/Albuterol Sulfate (Iprat-Albut 0.5-3(2.5) mg/3 ml) 3 Ml Ampul.neb, 3 ML AEROSOL QID Y for SHORTNESS OF AIR/WHEEZING, #50 Prov:MARISOL PATEL MD 06/22/16 Losartan Potassium (Cozaar) 25 Mg Tablet, 25 MG PO DAILY for HYPERTENSION for 30 Days Prov:MARISOL PATEL MD 06/22/16 Benzonatate (Benzonatate) 200 Mg Capsule, 200 MG PO TID Y for COUGH, #20 CAP Prov:MARISOL PATEL MD 06/22/16 Furosemide (Furosemide) 20 Mg Tablet, 20 MG PO DAILY for 28 Days, #28 TAB Prov:MARISOL PATEL MD 06/22/16 Nicotine (Nicotine Patch 21 mg/24hr) 1 Each Patch.td24, 1 REMOVAL TD DAILY Y for nicotine withdrawl for 14 Days Prov:MARISOL PATEL MD 06/22/16 Reported Medications [Herbal Lax] No Conflict Check, 2 TAB PO HS 06/19/16 Resveratrol/Quercetin (Resveratrol Plus 100 mg Tablet) 1 Each Tablet, 1 TAB PO DAILY 06/19/16 Vitamin B Complex (Vitamin B Complex) 1 Each Capsule, 1 CAP PO DAILY 03/11/16 Gemfibrozil (Gemfibrozil) 600 Mg Tablet, 600 MG PO BID 03/26/15 Pramipexole Di-HCl (Pramipexole Dihydrochloride) 0.25 Mg Tablet, 0.25 MG PO TID 03/26/15 Levothyroxine Sodium (Levothyroxine Sodium) 50 Mcg Tablet, 50 MCG PO ACB 03/26/15 Tiotropium Henderson (Spiriva) 18 Mcg Cap.w.dev, 1 PUFF INH DAILY 03/08/13 Estradiol (Estradiol) 1 Mg Tablet, 1 MG PO HS 03/08/13 Aspirin (Aspir 81) 81 Mg Tablet.dr, 81 MG PO DAILY 03/11/10 Atenolol (Atenolol) 100 Mg Tablet, 100 MG PO BID 12/13/08 Esomeprazole Mag Trihydrate (Nexium) 40 Mg Capsule.dr, 40 MG PO DAILY 12/13/08 Discontinued Reported Medications Triamterene/Hydrochlorothiazid (Triamterene-Hctz 75-50 Tab) 1 Tab Tablet, 0.5 TAB PO DAILY 12/13/08 Face to Face Encounter I met with patient on the day of dismissal and discussed follow up appointments , medications, and safety plan. Discharge Disposition Home Copies To 1: KEVIN HOFFMAN DO Documentation Requirements Documenting Diagnosis Altered Mental Status, Pneumonia CHF Type and Acuity Type of CHF: Diastolic, Valvular Heart Disease Acuity CHF: Acute on Chronic Alt. Mental Status/Confusion Check if condition above is: Acute Pneumonia Comments Ruled out MARISOL PATEL MD Jun 22, 2016 20:10
== END 2016-06-22 16:05 | disposition home or self-care (01) | DRG 291 ==
LOC: ED 09:59 → EDHOLD 12:43 → MED 12:55
PROVIDERS: ADMIT Internal Medicine; ATTEND Internal Medicine
DX: I50.33 Acute on chronic diastolic (congestive) heart failure (principal); J96.01 Acute respiratory failure with hypoxia; G93.40 Encephalopathy, unspecified; J44.1 Chronic obstructive pulmonary disease with (acute) exacerbation; I11.0 Hypertensive heart disease with heart failure; I25.10 Atherosclerotic heart disease of native coronary artery without angina pectoris; Z66 Do not resuscitate; I70.203 Unspecified atherosclerosis of native arteries of extremities, bilateral legs; D64.9 Anemia, unspecified; G47.00 Insomnia, unspecified; F41.9 Anxiety disorder, unspecified; E78.00 Pure hypercholesterolemia, unspecified; F17.210 Nicotine dependence, cigarettes, uncomplicated; E03.9 Hypothyroidism, unspecified; K21.9 Gastro-esophageal reflux disease without esophagitis; K22.70 Barrett's esophagus without dysplasia; E55.9 Vitamin D deficiency, unspecified; R32 Unspecified urinary incontinence; M79.7 Fibromyalgia; I27.2 Other secondary pulmonary hypertension; M51.16 Intervertebral disc disorders with radiculopathy, lumbar region; M47.896 Other spondylosis, lumbar region; E66.9 Obesity, unspecified; Z68.35 Body mass index [BMI] 35.0-35.9, adult; Z79.82 Long term (current) use of aspirin
CPT/HCPCS: 36415; 80048; 80053; 80069; 81001; 83735; 83880; 84484; 85025; 85379; 87040; 87070; 87205; 87400; 93005; 93306; 94010; 94640; 94761; 94762; 96361; 96374; 99406

== ENCOUNTER 2016-08-22 21:15 | Inpatient (IN) | payer MEDICARE, OTHER ==
[~2016-08-22] VITALS: Ht 162.6 cm; Wt 92.5 kg
[~2016-08-22 21:15] MED LIST changes: +BENZ200C36 PO; -FISH1CAP29 PO; +FURO20TA4 PO; +HERBAL LAX PO; +HYDR-3841 PO; +IPRA3AMP AEROSOL; +LOSA25TA2 PO; -MULT-795 PO; +NICO1PAT16 TD; +RESV1TAB PO; -SENN-125 PO; -TRIA-15 PO
--- OUTSIDE RECORDS SUMMARY | 2016-08-22 21:20 | XMS REPORT | Continuity of Care Document ---
Author Author [facility] Organization [facility] Address Unknown Phone Unavailable Allergies Active Description [...] "CANT TOLERATE" 10/05/2014 Medications Problems Procedures Results Test Result Range CBC WITH PLATELET AND DIFFERENTIAL - 07/09/16 06:50 SEGS 60.6 % NRG *BASOPHILS 0.7 % NRG *EOSINOPHILS 6.5 % NRG AUTOMATED DIFF PERFORMED NRG *LYMPHOCYTES 21.1 % NRG *MONOCYTES 11.1 % NRG *ABSOLUTE BASOPHILS 0.00 10*3/uL 0.00- 0.20 *ABSOLUTE EOSINOPHILS 0.40 10*3/uL 0.00- 0.50 *ABSOLUTE LYMPHOCYTES 1.30 10*3/uL 1.00- 3.00 *ABSOLUTE MONOCYTES 0.70 10*3/uL 0.30- 1.00 *ABSOLUTE NEUTROPHILS 3.70 10*3/uL 1.80- 7.80 MPV 8.4 fL 7.4-10.4 PLATELETS 195 10*3/uL 159-386 WBC 6.1 10*3/uL 3.6-11.2 RBC 3.98 3.63-4.92 HEMOGLOBIN 11.4 11.0-14.3 HEMATOCRIT 33.7 % 31.2-41.9 MCV 84.8 fL 79.0-98.0 MCH 28.7 pg 27.0-33.0 MCHC 33.9 32.0-36.0 RDW 17.5 % 12.3-17.0 RDWSD 52.9 37.1-47.8 BASIC METABOLIC PANEL - 07/09/16 06:50 SODIUM 135 mmol/L 136-145 POTASSIUM 3.7 mmol/L 3.5-5.1 CHLORIDE 99 mmol/L 98-107 TCO2 29.3 mmol/L 21.0-32.0 *ANION GAP 6.7 mmol/L 8.0-16.0 BUN 13 7-18 CREATININE 0.70 0.55-1.02 *BUN/CREATININE RATIO 18.6 9.1-17.0 GLUCOSE 110 65-99 CALCIUM 9.5 8.5-10.1 GFR ESTIMATION - 07/09/16 06:50 *GFR EST NON AFR [place] 86 mL/min NRG *GRFA EST AFR AMER >90 mL/min NRG Encounters ACCT No. Visit Date/Time Discharge Status Pt. Type Provider Facility Loc./Unit Complaint [id number] 10/05/2014 17:18:00 2014 19:00:00 DIS Emergency Renetta MIRELES, [facility] MARNI [id number] 01/22/2011 10:45:00 Inpatient
--- OUTSIDE RECORDS SUMMARY | 2016-08-22 21:20 | XMS REPORT ---
Author Author [facility], SYSTEM Organization Unknown Address Unknown Phone Unavailable Care Team Providers Care Recruitment Consultant Name Role Phone UNASSIGNED DOCTORMD DOCTOR PP [phone] Reason For Visit Chief Complaint PAD,PA W [...] * Sulfa (Sulfonamide Antibiotics) causes Unknown. * Oylxdvk-Oim-Uat Reductase Inhibitors causes Muscle Pain. * No Latex Allergy. * No IV Contrast Allergy. Medication It is the responsibility of the patient or patient chemical sales representative to confirm the list of medications [...]
--- OUTSIDE RECORDS SUMMARY | 2016-08-22 21:20 | XMS REPORT | Continuity of Care Document ---
Author Author [facility] Organization [facility] Address Unknown Phone Unavailable Care Team Providers Care Radio Producer Name Role Phone SLECLARAA, KEVIN B DO Primary Care Physician [phone] Insurance Providers Guarantor Peng Ratliff Address [address] [place] [address] Email DENIED 16 Payer [place] Policy Number [id number] Subscriber's Name Peng Ratliff Relationship 18 Self Group Number [id number] Effective Date 08 Payer Medicare Policy Number [id number] Subscriber's Name Peng Ratliff Relationship 18 Self Effective Date 08 Chief Complaint and Reason for Visit Chief Complaint Skin Rash/Abscess/Injury Reason for Visit Pruritus Problems Active Problems Medical Problem Onset Date Status Acute respiratory failure with hypoxia Unknown Resolved Alcohol intoxication Unknown Acute Anemia, normocytic normochromic Unknown Piper's esophagus Unknown Chronic CHF (congestive heart failure) Unknown Acute COPD (chronic obstructive pulmonary disease) Unknown Chronic COPD exacerbation Unknown Acute Coronary artery disease Unknown Chronic Degeneration of L4-L5 intervertebral disc Unknown Essential (primary) hypertension Unknown Chronic Fall Unknown Acute Fibromyalgia Unknown Chronic GERD (gastroesophageal reflux disease) Unknown Chronic Hematoma of scalp Unknown Acute Hypercholesteremia Unknown Chronic Hypothyroidism Unknown Chronic Mitral regurgitation Unknown Obesity (BMI 30-39.9) Unknown Chronic PVD (peripheral vascular disease) Unknown Chronic Pruritus Unknown Acute Pulmonary hypertension Unknown Rib pain on left side Unknown Acute Spinal stenosis of lumbar region with radiculopathy Unknown Tobacco dependency Unknown Chronic Urinary incontinence Unknown Chronic Vitamin D deficiency Unknown Chronic Past Problems Medical Problem Onset Date Hypoxemia Unknown Pneumonia Unknown Medications Current Home Medications Medication Dose Units Route Directions Days Qty Instructions Start Date Aspirin (Aspir 81) 81 Mg Tablet.dr 81 Mg Oral Daily 03/11/10 Atenolol 100 Mg Tablet 100 Mg Oral Twice A Day 12/13/08 Benzonatate 200 Mg Capsule 200 Mg Oral Three Times A Day as needed for Cough 20 Capsule 06/22/16 Esomeprazole Mag Trihydrate (Nexium) 40 Mg Capsule.dr 40 Mg Oral Daily 12/13/08 Estradiol 1 Mg Tablet 1 Mg Oral Bedtime 03/08/13 Furosemide 20 Mg Tablet 20 Mg Oral Daily 28 Days 28 Tablet 06/22/16 Gemfibrozil 600 Mg Tablet 600 Mg Oral Twice A Day 03/26/15 Herbal Lax 2 Tab Oral Bedtime 06/19/16 Hydroxyzine Pamoate 25 Mg Capsule 1 Cap Oral Three Times A Day 5 Days [address] Sampson Dawson [employer] [facility] [address] [place] [address] 08/22/16 Ipratropium/Albuterol Sulfate (Iprat-Albut 0.5-3(2.5) Mg/3 Ml) 3 Ml Ampul.neb 3 Ml Aerosol Tx. Four Times Daily as needed for Shortness Of Air/Wheezing 50 06/22/16 Levothyroxine Sodium 50 Mcg Tablet 50 Mcg Oral Before Breakfast 03/26/15 Losartan Potassium (Cozaar) 25 Mg Tablet 25 Mg Oral Daily for Hypertension 30 Days 06/22/16 Nicotine (Nicotine Patch 21 Mg/24HR) 1 Each Patch.td24 1 Removal Transderm Daily as needed for Nicotine Withdrawl 14 Days 06/22/16 Pramipexole Di-Hcl (Pramipexole Dihydrochloride) 0.25 Mg Tablet 0.25 Mg Oral Three Times A Day 03/26/15 Resveratrol/Quercetin (Resveratrol Plus 100 Mg Tablet) 1 Each Tablet 1 Tab Oral Daily 06/19/16 Tiotropium [place] (Spiriva) 18 Mcg Cap.w.dev 1 Puff Inhalation Daily 03/08/13 Vitamin B Complex 1 Each Capsule 1 Cap Oral Daily 03/11/16 Past Home Medications Medication Directions Ordered Status Clopidogrel Bisulfate (Plavix) 75 Mg Tablet, 75 Mg Oral Daily 03/10/10 Discontinued Dicyclomine Hcl 10 Mg Capsule, 10 Mg Oral Three Times A Day 12/13/08 Discontinued Triamterene/Hydrochlorothiazid (Triamterene-Hctz 75-50 Tab) 1 Tab Tablet, 0.5 Tab Oral Daily 12/13/08 Discontinued Social History Social History Problem Response Recorded Date/Time Onset Date Status Chewing Tobacco Status No 03/08/2013 1:55pm Not Applicable Not Applicable Hx Substance Use No 06/19/2016 10:20am Not Applicable Not Applicable Hx Alcohol Use No 06/19/2016 10:20am Not Applicable Not Applicable Has the pt used tobacco in the last 12 months Yes 06/19/2016 1:23pm Not Applicable Not Applicable Hospital Discharge Instructions No hospital discharge instructions. Plan of Care Discharge Date 08/22/16 5:22pm Disposition 01 DISCHARGED HOME, SELF-CARE Condition at Discharge Stable Instructions/Education Provided Itchy Skin (GEN) Prescriptions See Medication Section Referrals KEVIN HOFFMAN DO Address: [address] [place] [address] [place], [place] [id number] Functional Status No functional status results. Allergies, Adverse Reactions, Alerts Allergen Type Severity Reaction Status Last Updated amlodipine besylate Allergy Unknown Active 08/22/16 atorvastatin calcium Allergy Mild ACHY Active 08/22/16 fenofibrate,micronized Allergy Mild INTOLERANT TO THIS MED Active 08/22/16 rosuvastatin calcium Allergy Mild ACHY Active 08/22/16 Fenofibrate Nanocrystallized Allergy Mild INTOLERANT TO THIS MED Active Choline Fenofibrate Allergy Unknown Active 08/22/16 Sulfa (Sulfonamide Antibiotics) Allergy Unknown Active 08/22/16 Lisinopril Allergy Unknown TOUNGE SWELLING Active 08/22/16 Cefdinir Adverse Reaction Unknown Active 08/22/16 Colesevelam Adverse Reaction Mild DOES NOT TOLORATE Active 08/22/16 Ezetimibe Allergy Mild ACHY Active 08/22/16 Immunizations Query Response on File Recorded Date/Time Hx Influenza Vaccination Y fall 201506/19/16 1:23pm Hx Pneumococcal Vaccination Y 201406/19/16 1:23pm Hx Tetanus, Diptheria, Pertussis UNKNOWN 09/30/14 12:44am Hx Influenza Vaccination Y fall 201506/19/16 1:23pm Hx Tetanus Diptheria [place] 09/30/14 12:44am Hx Tetanus, Diptheria, Pertussis UNKNOWN 09/30/14 12:44am Influenza Vaccine Hx fall 201508/22/16 4:55pm Vital Signs Acute Vital Signs Vital Response Date/Time Temperature (Fahrenheit) 97.7 deg F (96.8 - 99.1) 08/22/2016 4:51pm Temperature (Calculated Celsius) 36.48670 degrees C (36.0 - 37.3) 08/22/2016 4:51pm Pulse Rate (adult) 78 bpm (60 - 100) 08/22/2016 4:51pm Respiratory Rate 18 breaths/min (10 - 20) 06/22/2016 7:14am O2 Sat by Pulse Oximetry 97 % (90 - 100) 08/22/2016 4:51pm Oxygen Delivery Method Room Air 06/22/2016 1:30am Oxygen Delivery Method Room Air 06/22/2016 7:14am Oxygen Flow Rate 2.00 L/min 06/21/2016 12:20am Blood Pressure 116/61 mm Hg 08/22/2016 4:51pm Blood Pressure Source Automatic Cuff 06/22/2016 2:15pm Height (Feet) 5 feet 08/22/2016 4:51pm Height (Inches) 4.00 inches 08/22/2016 4:51pm Weight (Kilograms) 92.000 kg 08/22/2016 4:51pm Body Mass Index (BMI) 34.0 08/22/2016 4:51pm Results Laboratory Results Test Name Result Units Flags Reference Collection Date/Time Result Date/ Time Comments White Blood Count 11.0 T/MM3 4.5-11.0 06/20/2016 5:06/20/2016 6: 26am Red Blood Count 3.41 M/MM3 L 4.00-5.20 06/20/2016 5:06/20/2016 6: 26am Hemoglobin 9.9 GM/DL L 12-16 06/20/2016 5:06/20/2016 6:26am Hematocrit 30.1 % L 36-46 06/20/2016 5:06/20/2016 6:26am Mean Corpuscular Volume 88.3 UM3 80-100 06/20/2016 5:06/20/2016 6: 26am Mean Corpuscular Hemoglobin 29.0 UUG 26-34 06/20/2016 5:2016 6:26am Mean Corpuscular Hemoglobin Concent 32.9 GM/DL 31-37 06/20/2016 5:06/20/2016 6:26am RDW Standard Deviation 47.6 FL 36.9-50.2 06/20/2016 5:06/20/2016 6 :26am Platelet Count 179 T/MM3 130-400 06/20/2016 5:06/20/2016 6:26am Mean Platelet Volume 10.8 UM3 9.4-12.4 06/20/2016 5:06/20/2016 6: 26am Neutrophils (%) (Auto) 83.3 % H 33-66 06/20/2016 5:06/20/2016 6: 26am Lymphocytes (%) (Auto) 7.9 % L 23-45 06/20/2016 5:06/20/2016 6: 26am Monocytes (%) (Auto) 8.4 % 0-9.0 06/20/2016 5:06/20/2016 6:26am Eosinophils (%) (Auto) 0.0 % 0-4 06/20/2016 5:06/20/2016 6:26am Basophils (%) (Auto) 0.1 % 0-2 06/20/2016 5:06/20/2016 6:26am Immature Granulocyte % (Auto) 0.3 % 0.0-0.5 06/20/2016 5:2016 6:26am Absolute Neutrophils (auto) 9.1 T/MM3 H 1.8-7.7 06/20/2016 5:2016 6:26am Absolute Lymphocytes (auto) 0.9 T/MM3 L 1-4.8 06/20/2016 5:2016 6:26am Absolute Monocytes (auto) 0.9 T/MM3 H 0-0.8 06/20/2016 5:2016 6:26am Absolute Eosinophils (auto) 0.0 T/MM3 0-0.5 06/20/2016 5:2016 6:26am Absolute Basophils (auto) 0.0 T/MM3 0-0.2 06/20/2016 5:06/20/2016 6:26am Absolute Immature Granulocyte (auto 0.03 T/MM3 0.00-0.03 06/20/2016 5: 06/20/2016 6:26am D-Dimer < 150 NG/ML 0-230 06/19/2016 10:06/19/2016 11:14am <230 NG/ML D-DU=PRESUMPTIVE NEGATIVE FOR PE OR DVT >230 NG/ML D-DU=ADDITIONAL EVAL FOR PE OR DVT RECOMMENDED Icterus Index < 2 0-7 06/22/2016 4:06/22/2016 5:31am Chemistry Specimen Hemolysis < 15 0-25 06/22/2016 4:06/22/2016 5 :31am 0-25: Specimen Exhibited No Hemolysis. Turbidity < 20 0-20 06/22/2016 4:06/22/2016 5:31am Sodium Level 134 MEQ/L 134-144 06/22/2016 4:06/22/2016 5:31am Potassium Level 3.9 MEQ/L 3.6-5 06/22/2016 4:06/22/2016 5:31am Chloride Level 96 MEQ/L L 98-107 06/22/2016 4:06/22/2016 5:31am Carbon Dioxide Level 29 MEQ/L 22-30 06/22/2016 4:06/22/2016 5: 31am Anion Gap 9 MEQ/L 5-15 06/22/2016 4:06/22/2016 5:31am Blood Urea Nitrogen 26.0 MG/DL H 7-06/22/2016 4:06/22/2016 5: 31am Creatinine 0.8 MG/DL D 0.7-1.2 06/22/2016 4:06/22/2016 5:32am BUN/Creatinine Ratio 33 RATIO H 6-06/22/2016 4:06/22/2016 5: 31am Glomerular Filtration Rate Calc 71 06/22/2016 4:06/22/2016 5: 31am Glucose Level 104 MG/DL 65-110 06/22/2016 4:06/22/2016 5:31am Calculated Osmolality 263 MOSM/KG 261-280 06/22/2016 4:06/22/2016 5:31am Calcium Level 10.4 MG/DL D H 8.4-10.2 06/22/2016 4:19am 06/22/2016 5: 32am Phosphorus Level 3.6 MG/DL 2.5-4.5 06/21/2016 5:08am 06/21/2016 6:06am Total Bilirubin 1.10 MG/DL 0.20-1.30 06/19/2016 10:20am 06/19/2016 10: 58am Alkaline Phosphatase 72 U/L 38-126 06/19/2016 10:20am 06/19/2016 10: 58am Total Protein 7.2 G/DL 6.3-8.2 06/19/2016 10:20am 06/19/2016 10:58am Albumin 3.7 G/DL 3.5-5.0 06/21/2016 5:08am 06/21/2016 6:06am Globulin 3.2 G/DL 2.4-3.6 06/19/2016 10:20am 06/19/2016 10:58am Albumin/Globulin Ratio 1.3 RATIO 1.1-2.2 06/19/2016 10:20am 06/19/2016 10:58am Aspartate Amino Transf (AST/SGOT) 39 U/L H 14-36 06/19/2016 10:20am 10:58am Alanine Aminotransferase (ALT/SGPT) 35 U/L 9-52 06/19/2016 10:20am 10:58am Troponin I < 0.012 ng/ml 0-0.12 06/19/2016 9:59pm 06/19/2016 10:31pm Troponin values with a difference of 55% increase from orginal troponin value represent a true biological DELTA value. (%increase Calc=Orginal Troponin value, divided by subsequent Troponin value, multiplied by 100) RU-Xhm-D-Type Natriuretic Peptide 808 PG/ML H 0-175 06/21/2016 5:08am 6:34am Rule in cut points: <50 years old=450; 50-75 years old=900; >75 years old=1800; When utilizing ProBNP rule-in cut points, adjustment for impaired renal function is typically not required. Magnesium Level 2.2 MG/DL 1.6-2.3 06/21/2016 5:08am 06/21/2016 6:06am Influenza Type A Antigen NEGATIVE NEGATIVE 06/19/2016 10:20am 2016 11:09am Negative for Flu A protein antigen. Assay sensitivity is 90%. Influenza Type B Antigen NEGATIVE NEGATIVE 06/19/2016 10:20am 2016 11:09am Negative for Flu B protein antigen. Assay sensitivity is 90%. Urine Collection Type VOIDED-NOT CC-MIDSTR 06/19/2016 11:09am 06/19 11:22am Urine Color YELLOW YELLOW 06/19/2016 11:09am 06/19/2016 11:22am Urine Turbidity CLOUDY CLEAR 06/19/2016 11:09am 06/19/2016 11:22am Urine Specific [place] <=1.005 L 1.015-1.025 06/19/2016 11:09am 2016 11:22am Urine pH 6.0 5.0-8.0 06/19/2016 11:09am 06/19/2016 11:22am Urine Leukocyte Esterase 3+ A NEGATIVE 06/19/2016 11:09am 06/19/2016 11:22am Urine Nitrite NEGATIVE NEGATIVE 06/19/2016 11:09am 06/19/2016 11: 22am Urine Protein NEGATIVE NEGATIVE 06/19/2016 11:09am 06/19/2016 11: 22am Urine Glucose (UA) NEGATIVE NEGATIVE 06/19/2016 11:09am 06/19/2016 11 :22am Urine Ketones NEGATIVE NEGATIVE 06/19/2016 11:09am 06/19/2016 11: 22am Urine Urobilinogen 0.2 EU/DL NORMAL 06/19/2016 11:09am 06/19/2016 11: 22am Urine Bilirubin NEGATIVE NEGATIVE 06/19/2016 11:09am 06/19/2016 11: 22am Urine Blood 1+ A NEGATIVE 06/19/2016 11:09am 06/19/2016 11:22am Urine WBC 10-20 /HPF H 0-5 06/19/2016 11:09am 06/19/2016 11:45am Urine RBC 5-10 /HPF H 0-3 06/19/2016 11:09am 06/19/2016 11:45am Urine Squamous Epithelial Cells 0-5 06/19/2016 11:09am 06/19/2016 11:45am Urine Transitional Epithelial Cells 1-3 /HPF 06/19/2016 11:09am 06/19 11:45am Urine Bacteria 1+ H NEGATIVE 06/19/2016 11:09am 06/19/2016 11:45am Urine Culture Indicated CULT NOT INDICATED 06/19/2016 11:09am 06/19 11:45am Microbiology Results Procedure Source Organism/Result Collection Date/Time Result Date/Time Result Status Blood Culture Peripheral/Iv Start NO GROWTH AFTER 5 DAYS 06/19/2016 10: 34am 06/24/2016 10:36am Final Sputum Culture Sputum, Expectorated Sputum NORMAL RESPIRATORY [facility] 2016 7:51pm 06/22/2016 8:20am Final YEAST 06/19/2016 7:51pm 06/22/2016 8:20am Final Procedures Procedure Status Date Provider(s) Lower extremity study Completed 06/03/16 Encounters Encounter Location Arrival/Admit Date Discharge/Depart Date Attending Provider Departed Emergency Room [facility] 08/22/16 4:45pm 08/22/16 5: 22pm ANGELA GARCIA APRN Discharged Inpatient [facility] 06/19/16 12:43pm 06/22/16 4:05pm PK JAQUEZ MD Registered Clinic [facility] 06/03/16 3:44pm KEVIN HOFFMAN DO Recent Diagnosis
--- OUTSIDE RECORDS SUMMARY | 2016-08-22 21:21 | XMS REPORT ---
Author Author [facility] Organization Unknown Address Unknown Phone Unavailable Care Team Providers Care High Pressure Cleaner Name Role Phone UNASSIGNED DOCTOR , DOCTOR PP [phone] Reason For Visit Chief Complaint PVD LT SIDE Social History Functional Status Vital Signs Results Problems Encounter Diagnosis No relevant problems exist. Encounters Encounter Diagnosis No relevant problems exist. Plan of Care Procedures * Completed Procedure Code: 6402331 Procedure Name: not valued, on 07/09/2016 12: 00 AM * Completed Procedure Code: 1695445 Procedure Name: not valued, on 06/18/2016 12 :00 AM * Completed , on 08/04/2010 12:00 AM * Completed , on 08/04/2010 12:00 AM * Completed , on 08/04/2010 12:00 AM * Completed , on 08/04/2010 12:00 AM Immunizations No immunizations administered or ordered. Hospital Course Hospital Discharge Instructions Allergies, Adverse Reactions, Alerts This section is installation service representative of the current allergy information, at the time of the CCD generation. In the case of regeneration of the CCD, the allergy information may not reflect the state of known allergies at the time of the CCD' s subject visit. * lisinopril causes Severe tongue swelled. * Trilipix causes Severe tongue swelled. * Norvasc causes Unknown. * Cipro causes Unknown. * Sulfa (Sulfonamide Antibiotics) causes Unknown. * Xhkovel-Xuo-Brt Reductase Inhibitors causes Muscle Pain. * Latex Allergy has not been assessed. * IV Contrast Allergy has not been assessed. Medication Medication reconciliation has not been performed.
--- OUTSIDE RECORDS SUMMARY | 2016-08-22 21:21 | XMS REPORT ---
Author Author [facility] Organization Unknown Address Unknown Phone Unavailable Care Team Providers Care Tool Planer Set Up Operator Name Role Phone UNASSIGNED DOCTOR MD ALINE DOCTOR PP [phone] Reason For Visit Chief Complaint UNSTABLE ANGINA [...] * Sulfa (Sulfonamide Antibiotics) causes Unknown. * Harecsp-Mkx-Vym Reductase Inhibitors causes Muscle Pain. * No Latex Allergy. * No IV Contrast Allergy. Medication It is the responsibility of the patient or patient customer field representative to confirm the list of medications [...] 1 tablet oral twice a day * jjrckdgz-vrz-gscv-FA-lutein (Centrum Silver Women) 8 mg iron-400 mcg-300 [...]
--- OUTSIDE RECORDS SUMMARY | 2016-08-22 21:21 | XMS REPORT ---
Author [facility] Organization Unknown Address Unknown Phone Unavailable Care Team Providers Care Retort Cooler Name Role Phone UNASSIGNED DOCTOR , DOCTOR PP [phone] Reason For Visit Chief Complaint PVD RT SIDE Social History Functional Status Vital Signs Results Chemistry from 07/09/2016 6:50 AMSODIUM 135 MMOL/L L (136-145 MMOL/L) POTASSIUM 3.7 MMOL/L (3.5-5.1 MMOL/L) CHLORIDE 99 MMOL/L (98-107 MMOL/L) TCO2 29.3 MMOL/L (21.0-32.0 MMOL/L) *ANION GAP 6.7 MMOL/L L (8.0-16.0 MMOL/L) BUN 13 MG/DL (7-18 MG/DL) CREATININE 0.70 MG/DL (0.55-1.02 MG/DL) *BUN/CREATININE RATIO 18.6 H (9.1-17.0 ) GLUCOSE 110 MG/DL H (65-99 MG/DL) *GFR EST NON AFR DJIBOUTIAN 86 ML/MIN (Reference Range: not available) *GFR EST AFR AMER >90 ML/MIN (Reference Range: not available) CALCIUM 9.5 MG/DL (8.5-10.1 MG/DL) Hematology from 07/09/2016 6:50 AMWBC 6.1 X10e3/UL (3.6-11.2 X10e3/UL) RBC 3.98 X10e6/UL (3.63-4.92 X10e6/UL) HEMOGLOBIN 11.4 G/DL (11.0-14.3 G/DL) HEMATOCRIT 33.7 % (31.2-41.9 %) *MCV 84.8 FL (79.0-98.0 FL) *MCH 28.7 PG (27.0-33.0 PG) *MCHC 33.9 G/DL (32.0-36.0 G/DL) *RDW 17.5 % H (12.3-17.0 %) *RDWSD 52.9 H (37.1-47.8 ) PLATELET 195 X10e3/UL (159-386 X10e3/UL) *MPV 8.4 FL (7.4-10.4 FL) AUTOMATED DIFF PERFORMED (Reference Range: not available) SEGS 60.6 % (Reference Range: not available) *LYMPHOCYTES 21.1 % (Reference Range: not available) *MONOCYTES 11.1 % (Reference Range: not available) *EOSINOPHILS 6.5 % (Reference Range: not available) *BASOPHILS 0.7 % (Reference Range: not available) *ABSOLUTE NEUTROPHILS 3.70 X10e3/UL (1.80-7.80 X10e3/UL) *ABSOLUTE LYMPHOCYTES 1.30 X10e3/UL (1.00-3.00 X10e3/UL) *ABSOLUTE MONOCYTES 0.70 X10e3/UL (0.30-1.00 X10e3/UL) *ABSOLUTE EOSINOPHILS 0.40 X10e3/UL (0.00-0.50 X10e3/UL) *ABSOLUTE BASOPHILS 0.00 X10e3/UL (0.00-0.20 X10e3/UL) Problems Encounter Diagnosis No relevant problems exist. Encounters Encounter Diagnosis No relevant problems exist. Plan of Care Procedures * Completed Procedure Code: [id number] Procedure Name: not valued, on 06/18/2016 12 :00 AM * Completed , on 08/04/2010 12:00 AM * Completed , on 08/04/2010 12:00 AM * Completed , on 08/04/2010 12:00 AM * Completed , on 08/04/2010 12:00 AM Immunizations No immunizations administered or ordered. Hospital Course Hospital Discharge Instructions Allergies, Adverse Reactions, Alerts This section is cash application representative of the current allergy information, at [...] * Sulfa (Sulfonamide Antibiotics) causes Unknown. * Wxjaubx-Abs-Xuy Reductase Inhibitors causes Muscle Pain. * No Latex Allergy. * No IV Contrast Allergy. Medication It is the responsibility of the patient or patient cash application representative to confirm the list of medications with either the patient's personal care provider or the patient's follow-up care provider to ensure the patient has an appropriate list of medications to take at home. Discharge medications Continued medications* aspirin 81 mg tablet,chewable, Ordered By: PARDEEP SERVIN MD Directions: 1 tablet oral daily * atenolol 100 mg Tablet, Ordered By: PARDEEP SERVIN MD Directions: 1 tablet oral twice a day * pramipexole (Mirapex) 0.25 mg Tablet, Ordered By: PARDEEP SERVIN MD Directions: 1 tablet oral three times a day * coQ10 (ubiquinol) 50 mg Capsule, Ordered By: PARDEEP SERVIN MD Directions: 1 capsule oral daily * rtrymjhb-xvb-vkxd-FA-lutein (Centrum Silver Women) 8 mg iron-400 mcg-300 mcg Tablet, Ordered By: PARDEEP SERVIN MD Directions: 1 tablet oral daily * docosahexanoic acid 1200 mg Capsule, Ordered By: PARDEEP SERVIN MD Directions: 1 capsule oral daily * polysaccharide iron complex 150 mg iron Capsule, Ordered By: PARDEEP SERVIN MD Directions: 1 capsule oral daily * esomeprazole magnesium (NexIUM) 40 mg capsule,delayed release(DR/EC), Ordered By: PARDEEP SERVIN MD Directions: 1 capsule oral daily before breakfast * gemfibrozil 600 mg Tablet, Ordered By: PARDEEP SERVIN MD Directions: 1 tablet oral twice a day * levothyroxine 50 mcg Tablet, Ordered By: PARDEEP SERVIN MD Directions: 1 tablet oral daily * tiotropium bromide (SPIriva with HandiHaler) 18 mcg Capsule, w/Inhalation Device, Ordered By: PARDEEP SERVIN MD Directions: 1 capsule by inhalation daily * estradiol unknown Tablet, Ordered By: PARDEEP SERVIN MD Directions: unknown oral daily * clopidogrel 75 mg Tablet, Ordered By: PARDEEP SERVIN MD Directions: 1 tablet oral daily * losartan 25 mg Tablet, Ordered By: PARDEEP SERVIN MD Directions: 1 tablet oral daily * furosemide 20 mg Tablet, Ordered By: PARDEEP SERVIN MD Directions: 1 tablet oral daily * albuterol sulfate 2.5 mg/3 mL (0.083 %) Solution for Nebulization, Ordered By : PARDEEP SERVIN MD Directions: 1 mL by inhalation every four hours PRN shortness of breath Stopped medications* None
[2016-08-22] MEDS ORDERED: NORMAL SALINE 1,000 ML IV ONE (21:42)
--- NOTE | 2016-08-22 21:50 | NUR ---
xray portable xray completed in room
--- OUTSIDE RECORDS SUMMARY | 2016-08-22 21:50 | XMS REPORT ---
Author Author [facility] Organization Unknown Address Unknown Phone Unavailable Care Team Providers Care Gathering Worker Name Role Phone UNASSIGNED DOCTOR , DOCTOR PP [phone] Reason For Visit Chief Complaint PVD RT [...] H (65-99 MG/DL) *GFR EST NON AFR ROMANIAN 86 ML/MIN (Reference Range: not available) *GFR [...] of Care Procedures * Completed Procedure Code: [id number] Procedure Name: not valued, on 06/18/2016 12 :00 AM * Completed , on 08/04/2010 12:00 AM * Completed , on 08/04/2010 12:00 AM * Completed , on 08/04/2010 12:00 AM * Completed , on 08/04/2010 12:00 AM Immunizations No immunizations administered or ordered. Hospital Course Hospital Discharge Instructions Allergies, Adverse Reactions, Alerts This section is sales account representative of the current allergy information, at [...] * Sulfa (Sulfonamide Antibiotics) causes Unknown. * Zifgaep-Khh-Izh Reductase Inhibitors causes Muscle Pain. * No Latex Allergy. * No IV Contrast Allergy. Medication It is the responsibility of the patient or patient sales account representative to confirm the list of [...] MD Directions: 1 capsule oral daily * juqrjkrk-uwq-twic-FA-lutein (Centrum Silver Women) 8 mg iron-400 mcg-300 [...]
--- OUTSIDE RECORDS SUMMARY | 2016-08-22 21:50 | XMS REPORT | Continuity of Care Document ---
Author Author [facility] Organization [facility] Address Unknown Phone Unavailable Allergies Active [...] - 07/09/16 06:50 *GFR EST NON AFR MONTSERRATIAN 86 mL/min NRG *GRFA EST AFR AMER >90 mL/min NRG Encounters ACCT No. Visit Date/Time Discharge Status Pt. Type Provider Facility Loc./Unit Complaint [id number] 10/05/2014 17:18:00 2014 19:00:00 DIS Emergency Renetta MIRELES, [facility] [id number] 01/22/2011 10:45:00 Inpatient
--- OUTSIDE RECORDS SUMMARY | 2016-08-22 21:50 | XMS REPORT ---
Author Author [facility] Organization Unknown Address Unknown Phone Unavailable Care Team Providers Care Process Line Operator Name Role Phone UNASSIGNED DOCTORMD DOCTOR PP [phone] Reason For Visit Chief Complaint PAD,PA W [...] * Sulfa (Sulfonamide Antibiotics) causes Unknown. * Rdbhfnf-Wss-Fsr Reductase Inhibitors causes Muscle Pain. * No Latex Allergy. * No IV Contrast Allergy. Medication It is the responsibility of the patient or patient nutrition representative to confirm the list of medications [...]
--- OUTSIDE RECORDS SUMMARY | 2016-08-22 21:50 | XMS REPORT ---
Author Author GENERATED, SYSTEM Organization Unknown Address Unknown Phone Unavailable Care Team Providers Care Sales And Marketing Agent Name Role Phone UNASSIGNED DOCTOR , DOCTOR PP [phone] Reason For Visit Chief Complaint PVD LT SIDE Social History Functional Status Vital Signs Results Problems Encounter Diagnosis No relevant problems exist. Encounters Encounter Diagnosis No relevant problems exist. Plan of Care Procedures * Completed Procedure Code: [id number] Procedure Name: not valued, on 07/09/2016 12: 00 AM * Completed Procedure Code: 4027699 Procedure Name: not valued, on 06/18/2016 12 :00 AM * Completed , on 08/04/2010 12:00 AM * Completed , on 08/04/2010 12:00 AM * Completed , on 08/04/2010 12:00 AM * Completed , on 08/04/2010 12:00 AM Immunizations No immunizations administered or ordered. Hospital Course Hospital Discharge Instructions Allergies, Adverse Reactions, Alerts This section is advertising sales representative of the current allergy information, at [...] * Sulfa (Sulfonamide Antibiotics) causes Unknown. * Rtkedqk-Fzi-Qwg Reductase Inhibitors causes Muscle Pain. * Latex Allergy has not been assessed. * IV Contrast Allergy has not been assessed. Medication Medication reconciliation has not been performed.
--- OUTSIDE RECORDS SUMMARY | 2016-08-22 21:50 | XMS REPORT ---
Author Author GENERATED, SYSTEM Organization Unknown Address Unknown Phone Unavailable Care Team Providers Care Business Solutions Director Name Role Phone UNASSIGNED DOCTOR MD ALINE DOCTOR PP [phone] Reason For Visit Chief Complaint UNSTABLE ANGINA [...] * Sulfa (Sulfonamide Antibiotics) causes Unknown. * Vjcbsyl-Fwr-Yjt Reductase Inhibitors causes Muscle Pain. * No Latex Allergy. * No IV Contrast Allergy. Medication It is the responsibility of the patient or patient patient intake representative to confirm the list of medications [...] 1 tablet oral twice a day * pkjmsdms-ald-zgwd-FA-lutein (Centrum Silver Women) 8 mg iron-400 mcg-300 [...]
[2016-08-22 22:15] LABS: BASOPHILS % (AUTO) 0.5 % (0-2); EOSINOPHILS # (AUTO) 0.3 T/MM3 (0-0.5); EOSINOPHILS % (AUTO) 3.1 % (0-4); HCT - HEMATOCRIT 23.2 % (36-46); HGB - HEMOGLOBIN 7.3 GM/DL (12-16); IMMATURE GRANULOCYTE # (AUTO) 0.02 T/MM3 (0.00-0.03); IMMATURE GRANULOCYTE % (AUTO) 0.2 % (0.0-0.5); LYMPHOCYTES # (AUTO) 1.6 T/MM3 (1-4.8); LYMPHOCYTES % (AUTO) 18.4 % (23-45); MEAN CORPUSCULAR HGB CONC(MCHC 31.5 GM/DL (31-37); MEAN PLATELET VOLUME 10.5 UM3 (9.4-12.4); MONOCYTES # (AUTO) 1.1 T/MM3 (0-0.8); MONOCYTES % (AUTO) 12.5 % (0-9.0); NEUTROPHILS #(AUTO)-ABSOLUTE 5.5 T/MM3 (1.8-7.7); NEUTROPHILS % (AUTO) 65.3 % (33-66); RED BLOOD COUNT 3.18 M/MM3 (4.00-5.20); WBC - WHITE BLOOD COUNT 8.5 T/MM3 (4.5-11.0)
[2016-08-22 22:23] LABS: ANION GAP 10 MEQ/L (5-15); BUN/CREATININE RATIO 30 RATIO (6-26); CHLORIDE 94 MEQ/L (98-107); CO2 - CARBON DIOXIDE 24 MEQ/L (22-30); CREATININE 0.6 MG/DL (0.7-1.2); GLOMERULAR FILTRATION RATE 98; GLUCOSE 115 MG/DL (65-110); SODIUM 128 MEQ/L (134-144)
--- NOTE | 2016-08-22 22:24 | ERPDOC ---
Departure Disposition Decision Date: August 23, 2016 Disposition Decision Time: 02:10 Disposition: 02 TO [facility] Impression Impression Impression: Primary Impression: Hypochromic microcytic anemia Additional Impressions: CHF (congestive heart failure) Congestive heart failure type: unspecified congestive heart failure type Congestive heart failure chronicity: chronic Qualified Codes: I50.9 - Heart failure, unspecified Elevated troponin Leg pain Laterality: bilateral Qualified Codes: M79.604 - Pain in right leg; M79.605 - Pain in left leg Edema of lower extremity Severity: Moderate Condition: Improved Seen By: Physician only Referrals: KEVIN HOFFMAN DO (Family) Problems/Meds/Labs Reviewed?: Yes Medications reviewed and manag: Yes Follow up care ordered?: Yes Mental Status: Alert, Oriented Critical Care Note Total Time (mins): 45 Critical Care Spent: Kdir-pf-fzcc care of pt, Reviewing test results, Discuss the case w/staff, Documenting the MR, Discussion w/ family/DPOA During this visit the pt was: Critically Ill, At Risk of Deterioration Comments 45 min of critical care time assigned to this case due to its urgency, complexity of decision making, need for continued patient re-evaluation, or resources devoted to stabilizing the patient. HPI - Cardiac General Chief Complaint: General Stated Complaint: LEGS WATER RETENTION Time Seen by Provider: 21:35 Source: patient Exam Limitations: no limitations HPI - Cardiac General Initial Comments 70yo woman presents to the ER tonight with b/l LE swelling. Pt was hospitalized with PNA 1 mo ago for PNA and dx'ed with CHF during the admission. Now takes a daily diuretic. Has put on 4-5# over the last week. Is here tonight because her legs are swollen and painful. Pt also c/o bloating. Pt has PAD; recently had 'roto rooter' in the arteries in her right leg. Occurred At: home Onset/Timing: Gradual, Getting worse Duration: 1 week Pain/Severity Scale: Now & Worst: 5/10 Severity: moderate Location: other (legs) Activities at Onset/Context: none Nitro Today/Relief: no nitro taken today Aspirin Today: contraindicated Associated Symptoms: other (bloating; leg swelling), shortness of breath Hx of Similar Symptoms: No Allergies: Coded Allergies: Fenofibrate Nanocrystallized (Verified Allergy, Mild, INTOLERANT TO THIS MED, 08/22/16) atorvastatin calcium (Verified Allergy, Mild, ACHY, 08/22/16) ezetimibe (Verified Allergy, Mild, ACHY, 08/22/16) fenofibrate,micronized (Verified Allergy, Mild, INTOLERANT TO THIS MED, ) rosuvastatin calcium (Verified Allergy, Mild, ACHY, 08/22/16) Choline Fenofibrate (Verified Allergy, Unknown, 08/22/16) Sulfa (Sulfonamide Antibiotics) (Verified Allergy, Unknown, 08/22/16) amlodipine besylate (Verified Allergy, Unknown, 08/22/16) lisinopril (Verified Allergy, Unknown, TOUNGE SWELLING, 08/22/16) colesevelam (Verified Adverse Reaction, Mild, DOES NOT TOLORATE, 08/22/16) cefdinir (Verified Adverse Reaction, Unknown, 08/22/16) Past History Patient Surgical History BTL 1973 Vaginal hysterectomy 1983 Hemorrhoidectomy 1984. Cystocele repair 2004 Biopsy of right vulvar mass in 2008. Pathology report showed hemorrhagic pseudocyst. She has had 4 surgeries for this problem. Left leg arterial stent in 2009. EGD with biopsies at GE junction and colonoscopy with biopsy and polypectomy in 2009. Pathology showed Piper's esophagitis, negative for malignancy. Polyp was diagnosed as tubular adenoma. Partial vulvectomy in 2010. Left leg procedure in [address] Wing. Radical liu-vulvectomy in 2010. EGD and 2011, again showing Piper's esophagitis on pathology. Posterior lumbar L4-L5 laminectomy and foraminotomy for nerve root compression in [address] Celis EGD and total colonoscopy with polypectomy [place] [address] Baca, diagnosed with GERD, angiodysplasia lesion of ascending colon, internal and external hemorrhoids. Heart catheterization 06/17/[address] Wing - vikash disease, no stents. Past Medical History Metabolic: hypercholesterolemia, hypertension, hypothyroidism Cardiac: CAD, CHF Respiratory: COPD, pneumonia GI: GERD Neurological: fibromyalgia Surgical History General: colonoscopy Family History Family PMH: FOUND: diabetes Vaccines Hx Influenza Vaccination: Yes (FALL 2015) Hx Pneumococcal Vaccination: Yes (2014) Social History Does patient use chewing tobac: No # of Packs/Tins per Day: 0.3 # of Years: 30 Second Hand Exposure: No Substance Use Type: does not use Substance last used: unknown Alcohol Intake: former alcohol drinker Last Drink: unknown Marital Status: Housing: house Household Members: spouse Current Occupational Status: retired 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, 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 Advance Directives: Yes DNR Review of Systems Pulmonary Respiratory: dyspnea GI Upper Abdomen: other (bloating) Musculoskeletal General: other (swelling), pain All other Systems All Other Systems: Reviewed and Negative Physical Exam General General Nourishment: well nourished, well developed, appears stated age, no acute distress, adult, obese General Body Habitus: well groomed Vitals and Pain First Documented Vital Signs Date Time Temp Pulse Resp B/P Pulse Ox O2 Delivery O2 Flow Rate FiO2 08/22/16 22:00 72 20 124/58 92 Room Air Weight: Kilograms: Height (feet): 5 Height (inches): 4.00 Triage Pain Scale: RN VS reviewed by Provider: Yes Normal Exams: Head: Normocephalic w/o trauma Eyes: Pupils are PERRLA w/ EOMI, No scleral icterus, irritation ENMT: No facial trauma, nasal exudates, pharyngeal erythema Neck: Full range of motion, without adenopathy, JVD Lymphatic: No lymphadenopathy Musculoskeletal: No tenderness, or deformity noted Integumentary: No rashes, hives Neurologic: Patient is alert, and oriented Psychiatric: Patient exhibits, appropriate attention Respiratory (brief) Respiratory: FOUND: clear all do, equal bilaterally, symmetrical, NOT FOUND : rales, wheezes Cardiovascular (brief) Cardiac: FOUND: regular rate, regular rhythm, NOT FOUND: click, gallop, murmur , pedal edema, peripheral edema, rub Capillary Refill: <2 sec Pulses: all distal extremities, equal, strong Abdomen (brief) Abdominal Brief: FOUND: bowel normo active x4, distended (Grossly), soft, NOT FOUND: hepatosplenomegaly, pulsatile mass, tender Musculoskeletal (brief) Musculoskeletal Brief: NOT FOUND: deformity, loss of motion, spasm, tenderness Comments Right leg almost 2x left; 3+ pitting edema on right; 1+ on left Differential Diagnoses Considering: CHF, Other (DVT, GI bleed, hyperemia) Progress Results/Orders Orders Procedure Category Date Status Time Cbc W/Auto LAB 08/22/16 Complete Diff-Reflex Manual 21:42 Bmp - Basic Metabolic LAB 08/22/16 Complete Panel 21:42 Tsh - Thyroid Stim LAB 08/22/16 Complete Hormone 21:42 Troponin I W LAB 08/22/16 Complete Hemolysis Index 21:42 Iv Lock (Ed Only) EDM 08/22/16 Transmitted 21:42 Normal Saline (Normal PHA 08/22/16 Complete Saline Iv) 21:42 Chest 1 View RAD 08/22/16 Resulted 21:42 Probnp LAB 08/22/16 Complete 21:42 Us Venous Duplex, US 08/22/16 Resulted Lower Ext Rt 21:42 Furosemide (Lasix) PHA 08/22/16 Complete 22:45 Ct Abd/Pelvis CT 08/22/16 Resulted W/Contrast Only Iohexol (Omnipaque) PHA 08/22/16 Complete 23:06 Normal Saline (Ns) PHA 08/22/16 Complete 23:06 Saline Flush (Iv PHA 08/22/16 Complete Flush) 23:06 Lorazepam (Ativan) PHA 08/23/16 Complete 00:30 Bmp - Basic Metabolic LAB 08/23/16 Complete Panel EKG EKG 08/23/16 Taken Troponin I W LAB 08/23/[address] In Facility: ED ADM 08/23/16 Transmitted Telemetry [facility] 08/23/16 In Process 02:11 Lab Results Laboratory Tests Test 08/22/16 22:11 08/23/16 00:54 08/23/16 01:38 White Blood Count 8.5T/MM3 Red Blood Count 3.18M/MM3 Hemoglobin 7.3GM/DL Hematocrit 23.2% Mean Corpuscular Volume 73.0UM3 Mean Corpuscular Hemoglobin 23.0UUG Mean Corpuscular Hemoglobin Concent 31.5GM/DL RDW Standard Deviation 48.2FL Platelet Count 216T/MM3 Mean Platelet Volume 10.5UM3 Immature Granulocyte % (Auto) 0.2% Neutrophils (%) (Auto) 65.3% Lymphocytes (%) (Auto) 18.4% Monocytes (%) (Auto) 12.5% Eosinophils (%) (Auto) 3.1% Basophils (%) (Auto) 0.5% Absolute Immature Granulocyte (auto 0.02T/MM3 Absolute Neutrophils (auto) 5.5T/MM3 Absolute Lymphocytes (auto) 1.6T/MM3 Absolute Monocytes (auto) 1.1T/MM3 Absolute Eosinophils (auto) 0.3T/MM3 Absolute Basophils (auto) 0.0T/MM3 Turbidity < 20 < 20 Sodium Level 128MEQ/L 130MEQ/L Potassium Level 4.0MEQ/L 4.4MEQ/L Chloride Level 94MEQ/L 94MEQ/L Carbon Dioxide Level 24MEQ/L 24MEQ/L Anion Gap 10MEQ/L 12MEQ/L Blood Urea Nitrogen 18.0MG/DL 18.0MG/DL Creatinine 0.6MG/DL 0.7MG/DL Glomerular Filtration Rate Calc 98 82 BUN/Creatinine Ratio 30RATIO 26RATIO Glucose Level 115MG/DL 103MG/DL Calculated Osmolality 250MOSM/KG 253MOSM/KG Calcium Level 9.0MG/DL 9.5MG/DL Icterus Index < 2 < 2 Troponin I 0.112ng/ml 0.106ng/ml MD-Psg-G-Type Natriuretic Peptide 1380PG/ML Thyroid Stimulating Hormone (TSH) 3.37MIU/L Chemistry Specimen Hemolysis < 15 < 15 < 15 Medications Current ED Medications Sodium Chloride (Normal Saline IV) 1,000 ml @ 75 mls/hr [id number] ONCE IV Last administered on 08/22/16 22:53; Start 08/22/16 at 21:42; Stop 08/23/16 at 11:01 ; Status DC Furosemide (Lasix) 40 mg O ONCE IV Last administered on 08/22/16 22:52; Start 08/22/16 at 22:45; Stop 08/22/16 at 22:46; Status DC Iohexol 1 bottle 1 bottle STK-MED ONCE .ROUTE ; Start 08/22/16 at 23:06; Stop at 23:07; Status DC Sodium Chloride (NS) 100 ml @ As Directed STK-MED ONCE .ROUTE ; Start 08/22/16 at 23:06; Stop 08/22/16 at 23:07; Status DC Sodium Chloride (Iv Flush) 10 ml STK-MED ONCE .ROUTE ; Start 08/22/16 at 23:06; Stop 08/22/16 at 23:07; Status DC Lorazepam (Ativan) 1 mg O ONCE IV Last administered on 08/23/16 00:36; Start 08/23/16 at 00:30; Stop 08/23/16 at 00:32; Status DC Progress Progress Pt with b/l LE edema, R>>>L; this could be due to either hyperemia from recent PAD treatment or from a unilateral DVT. US did not find a DVT, but labs show a markedly decreased H/H from prior. In combination with pts c/o bloating, concerning for intraabdominal bleed. CT shows some abns, but nothing to account for anemia. Pt c/o severe, left- sided calf cramping. Discussed lack of definitive findings with pt. Pt and family are fixated on left calf cramp. Will give ativan for cramping and repeat BMP. CBC: new anemia 10/24 (from 01/31) BMP: Low Na, Low Cl, elevated BUN, low Cr Card: elevated Trop, elevated BNP CXR: Improve RLL findings RLE DVT US: neg Abd/pelv CT: Pelvic ascites; gallbladder thickening; atherosclerosis; small right pleural effusion Mildly improved hyponatremia, but persistently elevated trop and neg EKG. Discussed findings and lack of significant improvement with hospitalist. Hospitalist concerned enough about newly worsened anemia with elevated trop and other abn's to suggest admission and further workup. Discussed dx, prognosis, and need for further eval with pt, who voiced understanding. Pt (more family) had numerous questions regarding pts underlying dx. Explained repeatedly that no definitive dx had been found on ER exam; explained repeatedly that this was why pt was recommended for admission and further eval. Pt and family eventually stopped demanding a definitive dx and agreed with decision to admit. EKG EKG : Rate: 60-100 Rhythm: sinus [place]: normal QRS: RBBB Intervals: normal ST/T: normal Interpreted by: signing physician Consult/PCP Consult/PCP : Physician Contacted: Ned Pillai Time Called: :22 Time of first response: :28 Type of discussion: Admit Discussion/PCP Discussion Details Given recent bump in trop, requests EKG and repeat troponin prior to accepting. If trop uptrending/EKG shows ischemia, will need to discuss with cards. If not, call back for local admission. EKG - SR with RBBB; repeat trop stable. Will accept for admission. Xray Xray : Xray: CXR Portable Interpretation: Abnormal (Interval resolution of right pleural effusion; increased parenchymal markings. Concern for pulm congestion), Interpreted by Sc CT CT : CT: Abd/Pelvis IV contrast Interpretation: Abnormal (Pelvic ascites; gallbladder thickening; atherosclerosis; small right pleural effusion), Reviewed Written Report Ultrasound US : Ultrasound: Venous Doppler Interpretation: Normal, Reviewed Written Report AUGUSTDINA DO August 22, 2016 22:23
[2016-08-22 22:36] LABS: PROBNP 1380 PG/ML (0-175)
[2016-08-22] MEDS ORDERED: FUROSEMIDE 40 MG/4 ML INJECTION IV ONE (22:45)
[2016-08-22 22:54] LABS: THYROID STIM HORMONE-TSH 3.37 MIU/L (0.47-4.68)
[2016-08-22] MEDS ORDERED: NORMAL SALINE 100 ML ONE (23:06)
[2016-08-22] MEDS ORDERED: SALINE FLUSH 10ml SYRINGE ONE (23:06)
[2016-08-22] MEDS ORDERED: IOHEXOL 300 MG/ML 75ml INJECTION ONE (23:06)
--- NOTE | 2016-08-22 23:30 | NUR ---
commode pt is up to the commode to urinate. pt was previously given lasix iv
[2016-08-23] VITALS (22 sets, daily range): BP systolic 122–155; BP diastolic 53–67; PULSE 66–88; RESP 14–24; TEMP 97.1–98.5; O2SAT 87–97; Ht 162.6 cm; Wt 92.5 kg
--- NOTE | 2016-08-23 00:05 | NUR ---
to ct via cart
--- NOTE | 2016-08-23 00:25 | NUR ---
return from ct
[2016-08-23] MEDS ORDERED: LORAZEPAM 2 MG/ML INJECTION IV ONE (00:30)
--- NOTE | 2016-08-23 00:50 | NUR ---
status pt needs assistance getting back to bed. pt is weak and unable to hold herself up very well. pt repositioned on the cart. pt has restless legs, muscle cramping, jerking movements
[2016-08-23 01:21] LABS: ANION GAP 12 MEQ/L (5-15); BUN/CREATININE RATIO 26 RATIO (6-26); CALCIUM 9.5 MG/DL (8.4-10.2); CHLORIDE 94 MEQ/L (98-107); CO2 - CARBON DIOXIDE 24 MEQ/L (22-30); CREATININE 0.7 MG/DL (0.7-1.2); GLOMERULAR FILTRATION RATE 82; GLUCOSE 103 MG/DL (65-110); POTASSIUM 4.4 MEQ/L (3.6-5); SODIUM 130 MEQ/L (134-144)
--- NOTE | 2016-08-23 02:00 | NUR ---
family family is getting upset because pt isnt better. explained dr is on phone with another doctor and he will be in as soon as he can. pt is moving around and c/o muscle cramping and restles legs and itching all in one. attempted to walk pt a little ways and then back. pt is one assist at this time
--- OUTSIDE RECORDS SUMMARY | 2016-08-23 02:26 | XMS REPORT | Continuity of Care Document ---
Author Author [facility] Organization [facility] Address Unknown Phone Unavailable Allergies Active Description [...] - 07/09/16 06:50 *GFR EST NON AFR [place] 86 mL/min NRG *GRFA EST AFR AMER >90 mL/min NRG Encounters ACCT No. Visit Date/Time Discharge Status Pt. Type Provider Facility Loc./Unit Complaint [id number] 10/05/2014 17:18:00 2014 19:00:00 DIS Emergency Renetta MIRELES, [facility]NI [id number] 01/22/2011 10:45:00 Inpatient
--- OUTSIDE RECORDS SUMMARY | 2016-08-23 02:26 | XMS REPORT ---
Author Author GENERATED, SYSTEM Organization Unknown Address Unknown Phone Unavailable Care Team Providers Care Assembler Mechanical Ordnance Name Role Phone UNASSIGNED DOCTORMD DOCTOR PP [phone] Reason For Visit Chief Complaint PAD,PA W [...] * Sulfa (Sulfonamide Antibiotics) causes Unknown. * Mvtnkwe-Qkv-Svq Reductase Inhibitors causes Muscle Pain. * No Latex Allergy. * No IV Contrast Allergy. Medication It is the responsibility of the patient or patient manufacturers service representative to confirm the list of medications [...]
--- OUTSIDE RECORDS SUMMARY | 2016-08-23 02:27 | XMS REPORT ---
Author Author GENERATED, SYSTEM Organization Unknown Address Unknown Phone Unavailable Care Team Providers Care Plant Tender Name Role Phone UNASSIGNED DOCTOR , DOCTOR PP [phone] Reason For Visit Chief Complaint PVD LT SIDE Social History Functional Status Vital Signs Results Problems Encounter Diagnosis No relevant problems exist. Encounters Encounter Diagnosis No relevant problems exist. Plan of Care Procedures * Completed Procedure Code: [id number] Procedure Name: not valued, on 07/09/2016 12: 00 AM * Completed Procedure Code: [id number] Procedure Name: not valued, on 06/18/2016 12 :00 AM * Completed , on 08/04/2010 12:00 AM * Completed , on 08/04/2010 12:00 AM * Completed , on 08/04/2010 12:00 AM * Completed , on 08/04/2010 12:00 AM Immunizations No immunizations administered or ordered. Hospital Course Hospital Discharge Instructions Allergies, Adverse Reactions, Alerts This section is housing management representative of the current allergy information, at [...] * Sulfa (Sulfonamide Antibiotics) causes Unknown. * Fpgplqx-Tgf-Edr Reductase Inhibitors causes Muscle Pain. * Latex Allergy has not been assessed. * IV Contrast Allergy has not been assessed. Medication Medication reconciliation has not been performed.
--- OUTSIDE RECORDS SUMMARY | 2016-08-23 02:27 | XMS REPORT ---
Author Author GENERATED, SYSTEM Organization Unknown Address Unknown Phone Unavailable Care Team Providers Care Pst Specialist Name Role Phone UNASSIGNED DOCTOR MD ALINE DOCTOR PP [phone] Reason For Visit Chief Complaint UNSTABLE ANGINA [...] * Sulfa (Sulfonamide Antibiotics) causes Unknown. * Vptytzd-Ung-Pkn Reductase Inhibitors causes Muscle Pain. * No Latex Allergy. * No IV Contrast Allergy. Medication It is the responsibility of the patient or patient pharmacy services representative to confirm the list of medications [...] 1 tablet oral twice a day * tjluupdw-fsg-gldv-FA-lutein (Centrum Silver Women) 8 mg iron-400 mcg-300 [...]
--- OUTSIDE RECORDS SUMMARY | 2016-08-23 02:27 | XMS REPORT ---
Author Author GENERATED, SYSTEM Organization Unknown Address Unknown Phone Unavailable Care Team Providers Care Lens Coater Name Role Phone UNASSIGNED DOCTOR , DOCTOR PP [phone] Reason For Visit Chief Complaint PVD RT [...] H (65-99 MG/DL) *GFR EST NON AFR [place] 86 ML/MIN (Reference Range: not available) *GFR [...] of Care Procedures * Completed Procedure Code: [id number] Procedure Name: not valued, on 06/18/2016 12 :00 AM * Completed , on 08/04/2010 12:00 AM * Completed , on 08/04/2010 12:00 AM * Completed , on 08/04/2010 12:00 AM * Completed , on 08/04/2010 12:00 AM Immunizations No immunizations administered or ordered. Hospital Course Hospital Discharge Instructions Allergies, Adverse Reactions, Alerts This section is volunteer patient representative of the current allergy information, at [...] * Sulfa (Sulfonamide Antibiotics) causes Unknown. * Ivzknpi-Uoo-Zac Reductase Inhibitors causes Muscle Pain. * No Latex Allergy. * No IV Contrast Allergy. Medication It is the responsibility of the patient or patient volunteer patient representative to confirm the list of medications [...] MD Directions: 1 capsule oral daily * cgpehgwa-lhm-diqu-FA-lutein (Centrum Silver Women) 8 mg iron-400 mcg-300 [...]
[2016-08-23] MEDS ORDERED: ALBUTEROL INH.SOLN. 2.5mg/3ml (0.083%) Neb. AEROSOL PRN (02:30)
[2016-08-23] MEDS ORDERED: NICOTINE 21 MG PATCH TD PRN (02:30)
[2016-08-23] MEDS ORDERED: FUROSEMIDE 40 MG/4 ML INJECTION IV ONE (02:30)
[2016-08-23] MEDS ORDERED: HYDROMORPHONE 2mg/ml INJECTION IV PRN (02:30)
[2016-08-23] MEDS ORDERED: ONDANSETRON 4mg/2ml INJECTION IV PRN (02:30)
--- NOTE | 2016-08-23 02:45 | NUR ---
admit status ambulates few steps from w/c to bed. Denies dizziness as up. Restless, cooperative with staff, able to follow simple commands. Unable to state current medications, has difficulty finding the words she wants. accompanies, answers questions during admission process
--- NOTE | 2016-08-23 02:45 | NUR ---
transferred pt is transferred by w/c to 155 with and neighbor accompanied. pt remains restless with her legs and jerking movements. pt is one assist from w/c to bed
--- NOTE | 2016-08-23 02:45 | NUR ---
out put pt used the commode numerous times total output after the lasix was 2400 ml.
--- NOTE | 2016-08-23 02:55 | NUR ---
elim assisted to BR, denies dizziness as up. Voids
[2016-08-23] MEDS ORDERED: DiphenhydrAMINE 50 MG/ML INJECTION IV ONE (03:30)
--- NOTE | 2016-08-23 03:30 | NUR ---
restless thrashing about in bed, requests to sit and stand, then back down in bed. Denies pain at present. Denies dyspnea Addendum: 08/23/16 at 0500 by JACKSON SENIOR RN kayy samano
[2016-08-23] MEDS: ALBUTEROL/IPRATROPIUM INHAL. 2.5mg-0.5mg/3ml Neb. AEROSOL SCH ×4 (04:00→21:10)
--- NOTE | 2016-08-23 04:05 | NUR ---
restlessness continues to be restless, assisted to sit and stand briefly at times. Denies dizziness as up. Pulls at linens, IV tubing frequently.
[2016-08-23] MEDS ORDERED: HALOPERIDOL 5 MG/ML INJECTION IV ONE ×2 (04:15→05:30)
[2016-08-23] MEDS: HYDROCODONE/APAP 5 mg/325 mg TABLET PO PRN ×2 (04:19→22:41)
--- NOTE | 2016-08-23 04:20 | NUR ---
comfort states LE pain off and on, [place] given. Takes without difficulty in swallow
--- NOTE | 2016-08-23 04:56 | HPPDOC ---
MONA MAGALLANES MD 08/23/16 0434: HPI - Adult Date DATE: 08/23/16 TIME: 04:25 General Chief Complaint: leg restless , pain History of Present Illness This is a 70 y/o female with multiple medical problems who had onset of "leg pain" for the past 1 week. right greater than left. This patient has had difficulties with this in the past but worse today. The patient had a right femoral artery stent placed recently. Because of the worsening pain the patient presents to the ED tonight for further assessment. The patient had multiple other vague complaints including abdomen bloating and aching. The patient had venous US of both legs without evidence of clots. ED provider was able to palpate pulses in both extremities and appear to be strong. The patient had a CT of the abdomen with IV contrast that essentially did not demonstrate an acute process (chronic gallbladder wall thickening) The patient had a significant cardiac workup 06/18 including an echocardiogram demonstrated left atrial enlargement, EF 79%, mod pulmonary HTN, diastolic dysfunction and a right pleural effusion. A heart cath at the same time did not demonstrate occlusive disease and no stents were placed. Tonight the patient had cardiac markers drawn which demonstrated a troponin of .112 repeat .106. The patient denied chest pain or increased shortness of breath. There had been sign pulm vascular congestion perviously with a right pleural effusion . CXR tonight demonstrates resolution of effusion with only mild increased pulm vasculature. At this time there are 3 main issues occurring. The dysethetic symptoms of the legs and arms that have escalated. No new meds to account except for atarax which is H1 [place] and only one dose. Ativan the ED did not improve symptoms of the patient. Patient to be admitted to further address. Elevated troponin. This is a real number but fortunately is not escalating. will admit and ask cardiology to see. MIld worsening of diastolic heart disease. Past Medical History Past Medical History periphreal artery disease, copd not oxygen or steroid dependent, Coronary artery disease (no stents), dyslipidemia, pulm hypertension, hypothyroidism, GERD, FMS, morbid obesity Surgical History Patient's Surgical History: BTL 1973 Vaginal hysterectomy 1983 Hemorrhoidectomy 1984. Cystocele repair 2004 Biopsy of right vulvar mass in 2008. Pathology report showed hemorrhagic pseudocyst. She has had 4 surgeries for this problem. Left leg arterial stent in 2009. EGD with biopsies at GE junction and colonoscopy with biopsy and polypectomy in 2009. Pathology showed Piper's esophagitis, negative for malignancy. Polyp was diagnosed as tubular adenoma. Partial vulvectomy in 2010. Left leg procedure in [address] Wing. Radical liu-vulvectomy in 2010. EGD and 2012, again showing Piper's esophagitis on pathology. Posterior lumbar L4-L5 laminectomy and foraminotomy for nerve root compression in [address] Celis EGD and total colonoscopy with polypectomy [place] [address] Baca, diagnosed with GERD, angiodysplasia lesion of ascending colon, internal and external hemorrhoids. Heart catheterization 06/17/[address] Wing - mild disease, no stents. Current Medications Home Meds Active Scripts Hydroxyzine Pamoate (Hydroxyzine Pamoate) 25 Mg Capsule, 1 CAP PO TID for 5 Days , #[address] Sampson Dawson Relationship Associate [facility] [address] [place] [address] Prov:ANGELA GARCIA APRN 08/22/16 Ipratropium/Albuterol Sulfate (Iprat-Albut 0.5-3(2.5) mg/3 ml) 3 Ml Ampul.neb, 3 ML AEROSOL QID Y for SHORTNESS OF AIR/WHEEZING, #50 Prov:PK JAQUEZ MD 06/22/16 Losartan Potassium (Cozaar) 25 Mg Tablet, 25 MG PO DAILY for HYPERTENSION for 30 Days Prov:PK JAQUEZ MD 06/22/16 Benzonatate (Benzonatate) 200 Mg Capsule, 200 MG PO TID Y for COUGH, #20 CAP Prov:PK JAQUEZ MD 06/22/16 Furosemide (Furosemide) 20 Mg Tablet, 20 MG PO DAILY for 28 Days, #28 TAB Prov:PK JAQUEZ MD 06/22/16 Reported Medications [Herbal Lax] No Conflict Check, 2 TAB PO HS 06/19/16 Resveratrol/Quercetin (Resveratrol Plus 100 mg Tablet) 1 Each Tablet, 1 TAB PO DAILY 06/19/16 Vitamin B Complex (Vitamin B Complex) 1 Each Capsule, 1 CAP PO DAILY 03/11/16 Gemfibrozil (Gemfibrozil) 600 Mg Tablet, 600 MG PO BID 03/26/15 Pramipexole Di-HCl (Pramipexole Dihydrochloride) 0.25 Mg Tablet, 0.25 MG PO TID 03/26/15 Levothyroxine Sodium (Levothyroxine Sodium) 50 Mcg Tablet, 50 MCG PO ACB 03/26/15 Tiotropium [place] (Spiriva) 18 Mcg Cap.w.dev, 1 PUFF INH DAILY 03/08/13 Estradiol (Estradiol) 1 Mg Tablet, 1 MG PO HS 03/08/13 Aspirin (Aspir 81) 81 Mg Tablet.dr, 81 MG PO DAILY 03/11/10 Atenolol (Atenolol) 100 Mg Tablet, 100 MG PO BID 12/13/08 Esomeprazole Mag Trihydrate (Nexium) 40 Mg Capsule.dr, 40 MG PO DAILY 12/13/08 Discontinued Scripts Nicotine (Nicotine Patch 21 mg/24hr) 1 Each Patch.td24, 1 REMOVAL TD DAILY Y for nicotine withdrawl for 14 Days Prov:PK JAQUEZ MD 06/22/16 Allergies: Coded Allergies: Fenofibrate Nanocrystallized (Verified Allergy, Mild, INTOLERANT TO THIS MED, 08/22/16) atorvastatin calcium (Verified Allergy, Mild, ACHY, 08/22/16) ezetimibe (Verified Allergy, Mild, ACHY, 08/22/16) fenofibrate,micronized (Verified Allergy, Mild, INTOLERANT TO THIS MED, ) rosuvastatin calcium (Verified Allergy, Mild, ACHY, 08/22/16) Choline Fenofibrate (Verified Allergy, Unknown, 08/22/16) Sulfa (Sulfonamide Antibiotics) (Verified Allergy, Unknown, 08/22/16) amlodipine besylate (Verified Allergy, Unknown, 08/22/16) lisinopril (Verified Allergy, Unknown, TOUNGE SWELLING, 08/22/16) colesevelam (Verified Adverse Reaction, Mild, DOES NOT TOLORATE, 08/22/16) cefdinir (Verified Adverse Reaction, Unknown, 08/22/16) Family History Family History: Mother at age 93 of old age. She had history of TIA, dementia, and hypertension Father at age 63 of kidney cancer. Brothers have heart disease, hypertension, dyslipidemia. No family history of blood clots or clotting disorders. 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 Note that the HPI discusses in detail all other aspects of this patient's HPI. a 10point ROS is otherwise negative except for noted above. Physical Exam General General Nourishment: well nourished, well developed, obese, adult General Body Habitus: disheveled Vital Signs Vital Signs Date Time Temp Pulse Resp B/P Pulse Ox O2 Delivery O2 Flow Rate FiO2 08/23/16 02:45 97.8 80 24 155/67 95 Room Air Height (Feet): 5 Height (Inches): 4.00 Comments WDWN white female confused requiring constant verbal re direction in mod distress. not oriented at this time Eyes Brief: FOUND: EOMI, PERRL, papilledema, NOT FOUND: other, scleral icterus , trauma Neck Brief: FOUND: midline, NOT FOUND: JVD, nuchal rigidity, other, spasm, tenderness, tracheal deviation Comments very diminished, no wheezes, no rhonchi. Cardiovascular (brief) Cardiac Brief: FOUND: pedal edema, peripheral edema, regular rate, regular rhythm, NOT FOUND: click, gallop, murmur, other, rub Capillary Refill: <2 sec Abdomen (brief) Abdominal Brief: FOUND: BS normo active x4, soft, NOT FOUND: distended, other, tender Musculoskeletal (brief) Comments patient is able to move all extremities. equally. patient is a very restless quality to her movements. can't seem to sit still or find a comfortable position. There is a sense of unsettledness in movement but no real pain with movement. no erythema to any joints. Integumentary (brief) Integumentary Brief: FOUND: dry, pink, warm Neurologic (brief) Comments no focal deficits Neurologic RN Documented GCS Eye Opening: Verbal: Motor: Total: Psychiatric (brief) FOUND: alert, NOT FOUND: attentive, normal affect, oriented, other Laboratory Laboratory Tests Test 08/22/16 22:11 08/23/16 00:54 08/23/16 01:38 White Blood Count 8.5T/MM3 Red Blood Count 3.18M/MM3 Hemoglobin 7.3GM/DL Hematocrit 23.2% Mean Corpuscular Volume 73.0UM3 Mean Corpuscular Hemoglobin 23.0UUG Mean Corpuscular Hemoglobin Concent 31.5GM/DL RDW Standard Deviation 48.2FL Platelet Count 216T/MM3 Mean Platelet Volume 10.5UM3 Immature Granulocyte % (Auto) 0.2% Neutrophils (%) (Auto) 65.3% Lymphocytes (%) (Auto) 18.4% Monocytes (%) (Auto) 12.5% Eosinophils (%) (Auto) 3.1% Basophils (%) (Auto) 0.5% Absolute Immature Granulocyte (auto 0.02T/MM3 Absolute Neutrophils (auto) 5.5T/MM3 Absolute Lymphocytes (auto) 1.6T/MM3 Absolute Monocytes (auto) 1.1T/MM3 Absolute Eosinophils (auto) 0.3T/MM3 Absolute Basophils (auto) 0.0T/MM3 Turbidity < 20 < 20 Sodium Level 128MEQ/L 130MEQ/L Potassium Level 4.0MEQ/L 4.4MEQ/L Chloride Level 94MEQ/L 94MEQ/L Carbon Dioxide Level 24MEQ/L 24MEQ/L Anion Gap 10MEQ/L 12MEQ/L Blood Urea Nitrogen 18.0MG/DL 18.0MG/DL Creatinine 0.6MG/DL 0.7MG/DL Glomerular Filtration Rate Calc 98 82 BUN/Creatinine Ratio 30RATIO 26RATIO Glucose Level 115MG/DL 103MG/DL Calculated Osmolality 250MOSM/KG 253MOSM/KG Calcium Level 9.0MG/DL 9.5MG/DL Icterus Index < 2 < 2 Troponin I 0.112ng/ml 0.106ng/ml AV-Drk-H-Type Natriuretic Peptide 1380PG/ML Thyroid Stimulating Hormone (TSH) 3.37MIU/L Chemistry Specimen Hemolysis < 15 < 15 < 15 Radiology CXR demonstrates very mild pulm vascular congestion CT abd/pelvis is reported to have tr ascites. almost complete resolution of effuion right lung, chronic changes to the gallbladder, coronary calcifications Assessment & Plan Assessment 1. elevated troponin acute POA: this is new for patient. as noted above is not trending up. EKG is non ischemic. We know that there is non occlusive ds. Will need to contact cardiology to discuss in next day. in the meantime rule out on tele. continue aspirin, b [place], is not tolerant of statins. unfortunately continues to smoke, see below, must stop. Perhaps had an event 1 or 2 days ago? Consider adding plavix today. 2. intractable dysesthesia to legs (right greater than left) and arms acute POA : not clear etiology. only new med is atarax with is H1 [place] and should not cause. A review of medication s does not reveal any potential EPSE type of meds. ativan worsened patients symptoms in the ED. Gave one dose of Benadryl 12.5 mg iv in case was a EPSE type reaction. No affect. Will try one dose of haldol 2 mg IV to settle her sx down acutely until better understood. patient had doppler venous of legs which were negative in the ED. palpable pulses are noted. in feet. hx of restless leg syndrome perhaps. patient does have anxiety disorder. Reassess after haldol 3. Diastolic heart disease chronic POA: perhaps slightly exacerbated. ED gave one dose lasix 40 mg iv. will monitor effect. echo 06/18 demonstrated LAE, EF 79%, mod pulm HTN, diastolic dysfunction, right pleural effusion. CXR today demonstrates no further pleural effusion and mild vascular congestion. reassess after diurese this am. 4. metabolic encephalopathy acute POA: patient mostly affected by ativan in ED. notes that patient starts day out somewhat confused and as the day progresses she becomes more coherent. Will need to review meds with pharmacy to determine if any of the night time meds are lasting into the store leader and precipitating this encephalopathy. No indicaton tonight to do CT head. If her symptoms progress consider MR to exclude an occult CVA. neuro exam does not demonstrate any focal weakness. 5. Peripheral artery disease chronic POA: continue aspirin therapy. not tolerant of statin. recent stent in the right femoral artery. currently no evidence of worsening disease 6. COPD chronic POA: serum HCO3 is normal @ 24. no indication for ABG or VBG. continue duoneb, albuterol, inhaled steroid and adjust meds as indicated. 7. Hyponatremia acute POA: consider related to diuretic therapy. monitor. with IV lasix given in ED possible Na will worsen, If persist need to check for SIADH 8. DVT ppx: SCD 9. gastric ppx: PPI Very challenging patient. workup ongoing as noted above. DVT Prophylaxis: SCD'S Code Status Full Code, unverified Hospital Course Summary Disclaimer The hospital course summary below is not to be considered part of the above Progress Note. PK JAQUEZ MD 08/23/16 1731: Past Medical History Current Medications Home Meds Active Scripts Hydroxyzine Pamoate (Hydroxyzine Pamoate) 25 Mg Capsule, 1 CAP PO TID for 5 Days , #[address] Sampson Dawson Relationship Associate [facility] [address] [facility] [phone] Prov:ANGELA GARCIA WILDLIFE POLICY PROFESSIONAL 08/22/16 Ipratropium/Albuterol Sulfate (Iprat-Albut 0.5-3(2.5) mg/3 ml) 3 Ml Ampul.neb, 3 ML AEROSOL QID Y for SHORTNESS OF AIR/WHEEZING, #50 Prov:PK JAQUEZ MD 06/22/16 Losartan Potassium (Cozaar) 25 Mg Tablet, 25 MG PO DAILY for HYPERTENSION for 30 Days Prov:PK JAQUEZ MD 06/22/16 Benzonatate (Benzonatate) 200 Mg Capsule, 200 MG PO TID Y for COUGH, #20 CAP Prov:PK JAQUEZ MD 06/22/16 Furosemide (Furosemide) 20 Mg Tablet, 20 MG PO DAILY for 28 Days, #28 TAB Prov:PK JAQUEZ MD 06/22/16 Reported Medications [Herbal Lax] No Conflict Check, 2 TAB PO HS 06/19/16 Resveratrol/Quercetin (Resveratrol Plus 100 mg Tablet) 1 Each Tablet, 1 TAB PO DAILY 06/19/16 Vitamin B Complex (Vitamin B Complex) 1 Each Capsule, 1 CAP PO DAILY 12/8/16 Gemfibrozil (Gemfibrozil) 600 Mg Tablet, 600 MG PO BID 03/26/15 Pramipexole Di-HCl (Pramipexole Dihydrochloride) 0.25 Mg Tablet, 0.25 MG PO TID 03/26/15 Levothyroxine Sodium (Levothyroxine Sodium) 50 Mcg Tablet, 50 MCG PO ACB 03/26/15 Tiotropium [place] (Spiriva) 18 Mcg Cap.w.dev, 1 PUFF INH DAILY 03/08/13 Estradiol (Estradiol) 1 Mg Tablet, 1 MG PO HS 03/08/13 Aspirin (Aspir 81) 81 Mg Tablet.dr, 81 MG PO DAILY 03/11/10 Atenolol (Atenolol) 100 Mg Tablet, 100 MG PO BID 12/13/08 Esomeprazole Mag Trihydrate (Nexium) 40 Mg Capsule.dr, 40 MG PO DAILY 12/13/08 Discontinued Scripts Nicotine (Nicotine Patch 21 mg/24hr) 1 Each Patch.td24, 1 REMOVAL TD DAILY Y for nicotine withdrawl for 14 Days Prov:PK JAQUEZ MD 06/22/16 Allergies: Coded Allergies: Fenofibrate Nanocrystallized (Verified Allergy, Mild, INTOLERANT TO THIS MED, 08/22/16) atorvastatin calcium (Verified Allergy, Mild, ACHY, 08/22/16) ezetimibe (Verified Allergy, Mild, ACHY, 08/22/16) fenofibrate,micronized (Verified Allergy, Mild, INTOLERANT TO THIS MED, ) rosuvastatin calcium (Verified Allergy, Mild, ACHY, 08/22/16) Choline Fenofibrate (Verified Allergy, Unknown, 08/22/16) Sulfa (Sulfonamide Antibiotics) (Verified Allergy, Unknown, 08/22/16) amlodipine besylate (Verified Allergy, Unknown, 08/22/16) lisinopril (Verified Allergy, Unknown, TOUNGE SWELLING, 08/22/16) colesevelam (Verified Adverse Reaction, Mild, DOES NOT TOLORATE, 08/22/16) cefdinir (Verified Adverse Reaction, Unknown, 08/22/16) Assessment & Plan Assessment Dr. Magallanes's note reviewed. Patient seen and examined. Minimally responsive when evaluated, provides all history in addition to that in available records. CC: Right leg pain, confusion HPI: Mrs. Gonzalez is a 70-year-old female who presented to the emergency room yesterday evening with increased pain and swelling in her right leg over the past week. Additionally she has had little sleep for the past 10 days or more per history of her due to the pain and increasing restlessness/spasm in her leg. He reports history of restless leg syndrome and office records indicate that Mirapex dose was recently increased from 3 to 4 times daily. Patient was last hospitalized at [facility] in June for CHF and subsequently had revascularization of her right lower extremity in July by Dr. Wing. believes this was simply "cleaned out"and that no stent was placed. He does not correlate leg symptoms with the procedure. Pain and spasm in her legs intensified significantly yesterday in conjunction with confusion prompting ER evaluation. 4-5 pounds weight gain over the past week was reported and the patient was initially described as being alert and oriented but weak and unable to hold herself up well. Muscle cramping and jerking movements were reported She received a 1 mg dose of Ativan a little bit after midnight after which she developed flailing uncontrolled movements of her arms and legs and significant deterioration in mental status. reports that she was agitated and confused and did not consistently know who he was. She complained of itching. Patient was subsequently admitted with altered mental status, lower extremity edema (venous sonogram negative in the ER), and movement disorder. Overnight she developed hypoxia requiring supplemental oxygen. Flailing movements gradually subsided after 2-2 mg doses of Haldol given at approximate 4 AM and 5:30 AM. When seen the patient responded to painful stimuli but did not respond verbally. PMH/SH/FH: As per Dr. Magallanes's note. Additionally patient has diagnosis of restless leg syndrome, hypertension, and chronic diastolic heart failure. ROS: Unobtainable; reports patient has had increased stress and been depressed recently, she is chronically constipated and has had hemorrhoids with hemorrhoidal bleeding for some time. EXAM: General-unresponsive, sleeping soundly/snoring intermittently, occasional myoclonic jerks upper/lower extremities HEENT-PER-1 mm, EOMI without nystagmus, conjugate gaze, conjunctiva clear, sclera anicteric facial structures symmetric, oropharynx limited visualization, neck supple and without adenopathy Lungs-respirations slightly coarse anteriorly and laterally but nonlabored Cardiac-regular rhythm, S1-S2 Abd-soft, mild tenderness on palpation of the lower abdomen and bladder is palpable, bowel sounds present Ext-+1 pitting edema RLE, trace LLE Skin-without rash or evidence of wounds Neuro-cranial nerves III through XII grossly intact, withdraws all 4 extremities to painful stimuli, brisk withdrawal reflex to plantar stimulation, localizes pain, no tremor at rest but occasional myoclonic jerking Psych-unresponsive Sodium 128 on admission, 138 currently. ProBNP 1380, mild troponin bump-peak 0.112. Microcytic anemia with hemoglobin 7.0 (10.8 in June) Chest x-ray reviewed by myself-NAD; CT had also reviewed by myself demonstrating atrophy but no acute process. CT abdomen and pelvis from the emergency room with questionable thickening of gallbladder valdez and possible gallstone but no ductal dilatation. Finally lower extremity venous Doppler without evidence of DVT. A/P: Altered mental status/metabolic encephalopathy Myoclonus Hypoxia-new Elevated troponin Microcytic anemia Hyponatremia Restless leg syndrome Chronic diastolic CHF COPD Piper's esophagus Chronic hemorrhoid/constipation Mrs. Gonzalez presents combination of increasing edema, myoclonic jerking, and pain in her lower extremities which has worsened significantly over the past week. Confusion was described prior to ER assessment by her but worsened significantly following administration of Ativan and myoclonus increased following administration of the benzo as well. At present the patient is minimally responsive but neurological exam is nonfocal and she is hemodynamically stable. She appears to be sleeping soundly and will be permitted to do so but monitored closely. Anemia may be aggravating neurological symptoms and iron deficiency is likely based on MCV and known chronic rectal bleeding due to hemorrhoids. Past records indicate colonoscopy within the past couple of years demonstrating angiodysplasia in addition to hemorrhoids and she's had several EGDs in the past 5 years old demonstrating Piper's. Iron studies are pending and patient may benefit from IV iron while hospitalized. One unit of blood to be transfused today. New onset hypoxia, continue diuresis. Chest x-ray unremarkable in the ER; but known history CHF with increased lower extremity edema and weight gain described prior to admission. BNP elevated. Edwards catheter placed with return of 1300 mL urine. Neuro-consultation may be needed for neuropathy/myoclonus (noted the patient is scheduled for outpatient neuro-evaluation in [place]) Suspect recent insomnia contributing to confusion prior to admission but hyponatremia may be a factor as well. Preceding depressive symptoms may require formal evaluation depending on significance when patient is able to provide direct history. Plan/Intensity of Service Multiple x-rays reviewed by myself, prior records reviewed, outpatient records reviewed, laboratory data reviewed. Discussed with nursing on multiple occasions ; discussed with case management. MONA MAGALLANES MD August 23, 2016 04:34 PK JAQUEZ MD August 23, 2016 17:31
--- NOTE | 2016-08-23 05:31 | NUR ---
rest continues to be restless. Denies pain. Tosses and turns in bed, lying still for only a few seconds at a time. Dr. Ann notified of continued restlessness, Hall repeated
--- NOTE | 2016-08-23 05:45 | NUR ---
ANXIETY PT REMAINS VERY ANXIOUS, CONSTANTLY MOVING IN BED, GETTING UP AND DOWN, AND IS UNSTEADY ON HER FEET. UPDATED DR. MAGALLANES HE PREVIOUSLY REQUESTED, SEE NEW ORDERS.
[2016-08-23] MEDS: LEVOTHYROXINE 50 MCG TABLET PO SCH (06:30)
--- NOTE | 2016-08-23 06:52 | NUR ---
comfort continues to be restless in bed, does not try to sit or stand. Does not purposefully pull at tubings. Dilaudid given to promote rest, attempt to help relax to enable us to do the ordered CT scan.
--- NOTE | 2016-08-23 07:36 | DI ---
Indication: ITS.REASON: CHF; increasing wt CHEST 1 VIEW: Comparison: 06/21/2016 Technique: Single upright portable chest Findings: Patient shows heart size within acceptable limits. No focal parenchymal pulmonary consolidations are seen. Patient shows rib deformities on the left chest which are similar to previous studies. Impression: 1. Since previous study clearing of the right lung base. 2. No acute cardiopulmonary findings. 3. Chronic bony changes in the left mid chest .
--- NOTE | 2016-08-23 07:44 | DI ---
Indication: ITS.REASON: unilateral swelling US VENOUS DUPLEX, LOWER EXT RT: Comparison: 06/19/2016 Technique: Patient scanned with real-time and color flow imaging with spectral Doppler analysis from the right upper thigh to the lower calf Findings: Patient demonstrates normal compression, augmentation and color flow Impression: Negative for DVT .
--- NOTE | 2016-08-23 07:52 | DI ---
Indication: ITS.REASON: Acute anemia with enlarged abdomen CT ABD/PELVIS W/CONTRAST ONLY: Comparison: None Technique: Patient scanned from above the diaphragm to below the pubic symphysis after 75 cc Omni 300 intravenous contrast is utilized. Dose reduction imaging technology with reformatted sagittal and coronal images are provided. Findings: Heart size is within normal limits. Patient shows some arteriosclerotic changes in the coronary arteries. Lung windows showed slightly increased markings without focal parenchymal consolidations, masses but with a small right effusion suggested. Liver is homogeneous in texture. Gallbladder demonstrates questionable wall thickening with perhaps some minimal debris and a probable "soft" stone within it. No definitive calcified stone noted. No biliary ductal dilatation appreciated. Spleen is unremarkable. Pancreas and both adrenals are unremarkable. Fairly extensive arteriosclerotic change identified within the aorta and iliac vessels. Bladder contour is unremarkable. Visualized bowel shows no obstruction or sign of acute inflammatory change. Just a trace of free fluid in the pelvis. Reformatted imaging demonstrated no acute bony abnormality in the thoracolumbar spine. Impression: 1. Minimal right-sided pleural reaction. 2. Probable noncalcified gallstone with questionable gallbladder wall thickening. Ultrasound may be a consideration. 3. Findings communicated to ordering clinician on a callback basis by the V rad service. .
--- NOTE | 2016-08-23 08:05 | DI ---
Indication: ITS.REASON: CONFUSION/ANXIETY/MENTAL STATUS CHANGE CT HEAD W/O CONTRAST: Comparison: 09/11/2014 Technique: Nonenhanced axial imaging with dose reduction imaging technology and brain and bone window evaluation. Findings: Patient shows mild mucoperiosteal thickening involving the left maxillary sinus. Rest of the sinuses were clear. Minimal thickening of the nasal turbinates appreciated. Mastoids are clear. No bony skull fracture seen. No acute intracranial findings are seen although patient does show similar atrophic changes to prior examination. No suggestion of hemorrhage, midline shift or mass appreciated. Impression: 1. Patient continues to show left maxillary sinus disease. 2. Generalized atrophy and deep white matter changes similar to the previous study from 2014. No acute findings 3. Findings were directly called ordering ER clinician when study provided. .
[2016-08-23] MEDS: ATENOLOL 100 MG TABLET PO SCH ×2 (09:00→20:55)
[2016-08-23] MEDS: ASPIRIN *EC* 81mg TABLET PO SCH (09:00)
[2016-08-23] MEDS: LOSARTAN 50 MG TABLET PO SCH (09:00)
[2016-08-23] MEDS: PRAMIPEXOLE 0.25 MG TABLET PO SCH ×3 (09:00→20:55)
[2016-08-23 09:06] LABS: HCT - HEMATOCRIT 22.5 % (36-46); MEAN CORPUSCULAR HGB 22.8 UUG (26-34); MEAN CORPUSCULAR HGB CONC(MCHC 31.1 GM/DL (31-37); MEAN CORPUSCULAR VOLUME 73.3 UM3 (80-100); MEAN PLATELET VOLUME 9.9 UM3 (9.4-12.4); RED BLOOD COUNT 3.07 M/MM3 (4.00-5.20); RETICULOCYTE % 2.6 % (0.6-1.7); RETICULOCYTE HGB 18.7 PG (30.8-36.6); WBC - WHITE BLOOD COUNT 7.6 T/MM3 (4.5-11.0)
--- NOTE | 2016-08-23 09:06 | NUR ---
NICOTINE PATCH PHARMACY NOTIFIED THAT NICOTINE PATCH WAS APPLIED THIS MORNING CHARTED, VERBAL OKAY FROM [facility] TO REMOVE PATCH AND PLACE NEW PATCH FOR SCHEDULED 24-HOUR PATCH TO BE TIMED AT 0900.
[2016-08-23] MEDS: NICOTINE PATCH REMOVAL TD SCH (09:09)
[2016-08-23 09:11] LABS: ANION GAP 11 MEQ/L (5-15); BUN/CREATININE RATIO 26 RATIO (6-26); CALCIUM 8.8 MG/DL (8.4-10.2); CHLORIDE 99 MEQ/L (98-107); CO2 - CARBON DIOXIDE 25 MEQ/L (22-30); CREATININE 0.7 MG/DL (0.7-1.2); GLOMERULAR FILTRATION RATE 82; GLUCOSE 86 MG/DL (65-110); POTASSIUM 3.8 MEQ/L (3.6-5); SODIUM 135 MEQ/L (134-144)
[2016-08-23 09:46] LABS: BASOPHILS # (MANUAL) 0.1 T/MM3 (0-0.2); MONOCYTES # (MANUAL) 0.8 T/MM3 (0-0.8); NEUTROPHILS #(MANUAL)-ABSOLUTE 4.8 T/MM3 (1.8-7.7)
[2016-08-23 09:48] LABS: MICROCYTOSIS 2+; POIKILOCYTOSIS 1+
[2016-08-23 09:49] LABS: HYPOCHROMASIA 1+
--- NOTE | 2016-08-23 10:00 | NUR ---
STATUS PT LETHARGIC, ALERT TO PERSON ONLY WHEN REPOSITIONED. PT HAS BEEN SLEEPING MOST OF THIS MORNING. PT ON 1L/NC, O2 SAT RANGES 90-94%. TURN Q2H WITH ASSIST X1-2, PT RESTLESS AT TIMES AND MOVES LOWER EXTREMITIES FREQUENTLY, UPPER EXTREMITIES OCCASIONALLY. NO S/S OF PAIN AT THIS TIME. INCONTINENT OF URINE X1. WILL CONTINUE TO MONITOR.
[2016-08-23] MEDS: NICOTINE 14 MG PATCH TD PRN (10:05)
--- NOTE | 2016-08-23 10:41 | NUR ---
RONNIE FRANCO IS 7. Addendum: 08/23/16 at 1042 by JULIO MAC SW Amended: Links added.
[2016-08-23] MEDS: PANTOPRAZOLE 40 MG TABLET PO SCH (11:32)
--- NOTE | 2016-08-23 12:25 | NUR ---
CANSECO CATHETER INSERTED AT THIS TIME. JEROME-CARE PROVIDED PRIOR TO INSERTION, PROPER HAND HYGIENE AND STERILE TECHNIQUE APPLIED DURING INSERTION. NO S/S OF PAIN, 1350 ML OF URINE OUTPUT UPON INSERTION OF CANSECO. WILL CONTINUE TO MONITOR.
--- NOTE | 2016-08-23 12:36 | NUR ---
STATUS PT ALERT TO PERSON, ABLE TO FOLLOW COMMANDS AT THIS TIME SUCH SQUEEZING A HAND OR HELPING TO REPOSITION. PT IS NOT CONVERSATIONAL, FALLS ASLEEP WHEN ASKED YES/NO QUESTIONS. DOES NOT RESPOND WHEN ASKED IF SHE WOULD LIKE FOR FOOD OR DRINK. ORAL CARE PROVIDED. CANSECO PATENT, ADEQUATE URINE OUTPUT. WILL CONTINUE TO MONITOR.
[2016-08-23 12:51] LABS: AMPHETAMINE SCREEN,URINE NEGATIVE; BARBITURATE SCREEN,URINE NEGATIVE; BENZODIAZEPINES SCREEN,URINE NEGATIVE; CANNABINOID SCREEN,URINE NEGATIVE; COCAINE SCREEN,URINE NEGATIVE; METHADONE SCREEN, URINE NEGATIVE; METHAMPHETAMINE SCREEN, URINE NEGATIVE; OPIATE SCREEN,URINE POSITIVE; PHENCYCLIDINE SCREEN,URINE NEGATIVE; TRICYCLIC ANTIDEPRESSANT,URINE NEGATIVE
--- NOTE | 2016-08-23 13:35 | NUR ---
STATUS PT WOKE UP BRIEFLY AT THIS TIME. ALERT AND ORIENTED X3, CONVERSATIONAL. ANSWERS YES/NO QUESTIONS. ABLE TO DRINK CRANBERRY JUICE AND TOLERATED WELL. DENIES PAIN AT THIS TIME, REPORTS FEELING "SO TIRED BECAUSE I HADN'T BEEN ABLE TO SLEEP." PT ENCOURAGED TO SLEEP AGAIN IF ABLE. PT RESTING COMFORTABLY AT THIS TIME. WILL CONTINUE TO MONITOR.
[2016-08-23] MEDS ORDERED: NORMAL SALINE 500 ML IV SCH (13:37)
--- NOTE | 2016-08-23 14:21 | NUR ---
CM THIS WORKER STOPPED BY PT'S ROOM. PT WAS ASLEEP, AND PER RN, PT WAS CONFUSED. THIS WORKER THEN CAME BACK WHEN WAS PRESENT. SPOKE WITH , INTRODUCED SELF, EXPLAINED ROLE, PROVIDED CONTACT INFO. HE SAID PT LIVES WITH HIM HERE IN [place]. HE SAID FOR THE DC PLAN, HE HOPES PT CAN RETURN HOME BUT IS WILLING TO DO WHATEVER IS NEEDED. HE SAID RIGHT NOW HE DOES NOT KNOW SPECIFICALLY WHAT PT NEEDS; THIS WORKER EXPLAINED THAT THERE IS NOT A KNOWN DC DATE, AND THAT THIS WORKER WILL ASSIST WITH DC PLANNING NEEDED. HE HAD NO CURRENT QUESTIONS/NEEDS. HE SAID THEY DO HAVE A WALKER AND CANES AT HOME, IN THE EVENT THAT PT NEEDS THESE. HE SAID SHE HAD NO BEEN ON OXYGEN AT HOME. Addendum: 08/23/16 at 1425 by JULIO ESCALANTE Amended: Links added.
--- NOTE | 2016-08-23 14:30 | NUR ---
STATUS PT AWAKE, ALERT AND ORIENTED X3. PARTICIPATING IN CONVERSATION WITH FAMILY AND NURSING STAFF. PLEASANT AND COOPERATIVE. LEGS RESTLESS AT TIMES, HOWEVER PT DENIES PAIN. WILL CONTINUE TO MONITOR.
[2016-08-23] MEDS ORDERED: FUROSEMIDE 20 MG/2 ML INJECTION IV ONE (18:00)
[2016-08-23 19:01] LABS: ANION GAP 12 MEQ/L (5-15); BUN/CREATININE RATIO 25 RATIO (6-26); CALCIUM 8.9 MG/DL (8.4-10.2); CHLORIDE 100 MEQ/L (98-107); CO2 - CARBON DIOXIDE 25 MEQ/L (22-30); CREATININE 0.6 MG/DL (0.7-1.2); GLOMERULAR FILTRATION RATE 98; GLUCOSE 121 MG/DL (65-110); POTASSIUM 3.8 MEQ/L (3.6-5); SODIUM 137 MEQ/L (134-144)
--- NOTE | 2016-08-23 19:46 | NUR ---
SHIFT SUMMARY PT ALERT AND ORIENTED X3. PT ON RA, DENIES SOA AT THIS TIME. PT DENIES PAIN, DENIES LIGHTHEADEDNESS. UP WITH ASSIST X1, GAIT BELT. PT FATIGUED BUT STEADY ON FEET. IVL LEFT HAND PATENT. CANSECO PATENT, ADEQUATE URINE OUTPUT. PT TOLERATED BLOOD TRANSFUSION WELL. PT ABLE TO MAKE NEEDS KNOWN. EXTREMITIES RESTLESS AT TIMES. PT AMBULATED IN HALLWAY X1 THIS SHIFT, TOLERATED WELL. PT NAPPED OFF AND ON BETWEEN 8-9 HOURS THIS SHIFT. CHAIR ALARM ON, CALL LIGHT WITHIN REACH. FAMILY PRESENT AT BEDSIDE.
[2016-08-23] MEDS ORDERED: HALOPERIDOL 5 MG/ML INJECTION IV PRN (20:00)
[2016-08-23 21:51] LABS: HGB - HEMOGLOBIN 8.3 GM/DL (12-16)
--- NOTE | 2016-08-23 22:52 | NUR ---
OXYGEN NEED & RESTLESS LEGS/ARMS: PT WAS THRASHING WITH HER ARMS AND LEGS. CHECKED PT'S OXYGEN LEVEL, 90%. RAISED HOB TO SEMI-VELEZ'S POSITION, INCREASED OXYGEN FROM 1L TO 2L NC. OXYGEN SATURATION 92%. OFFERED PAIN MEDICATION, WHICH PT ACCEPTED TO HELP WITH AGITATION FROM LEGS/ARM MOVEMENT; GAVE 1 PRN NORCO (SEE EMAR). WILL CONTINUE TO MONITOR.
[2016-08-24] VITALS (16 sets, daily range): BP systolic 116–157; BP diastolic 48–69; PULSE 67–83; RESP 16–20; TEMP 97.3–98.5; O2SAT 90–96
[2016-08-24] MEDS: ALBUTEROL/IPRATROPIUM INHAL. 2.5mg-0.5mg/3ml Neb. AEROSOL SCH ×4 (03:24→21:06)
--- NOTE | 2016-08-24 04:32 | NUR ---
DECREASED HEART RATE: REC'D CALL FROM TELEMETRY THAT PT'S HEART RATE DROPPED INTO THE 30'S. ASSESSED PT, DENIES SOA, BUT DID SAY THAT SHE WAS "HOT", BUT IS FINE NOW. TOOK BLOOD PRESSURE (134/69) AND HEART RATE (73 BPM), OXYGEN SATURATION AT 93% ON 2L NC. WILL CONTINUE TO MONITOR.
[2016-08-24 05:18] LABS: BASOPHILS % (AUTO) 0.5 % (0-2); EOSINOPHILS # (AUTO) 0.3 T/MM3 (0-0.5); EOSINOPHILS % (AUTO) 3.3 % (0-4); HCT - HEMATOCRIT 26.4 % (36-46); HGB - HEMOGLOBIN 8.1 GM/DL (12-16); IMMATURE GRANULOCYTE # (AUTO) 0.03 T/MM3 (0.00-0.03); IMMATURE GRANULOCYTE % (AUTO) 0.4 % (0.0-0.5); LYMPHOCYTES # (AUTO) 1.6 T/MM3 (1-4.8); LYMPHOCYTES % (AUTO) 19.3 % (23-45); MEAN CORPUSCULAR HGB 22.9 UUG (26-34); MEAN CORPUSCULAR HGB CONC(MCHC 30.7 GM/DL (31-37); MEAN CORPUSCULAR VOLUME 74.8 UM3 (80-100); MEAN PLATELET VOLUME 10.4 UM3 (9.4-12.4); MONOCYTES % (AUTO) 12.2 % (0-9.0); NEUTROPHILS #(AUTO)-ABSOLUTE 5.4 T/MM3 (1.8-7.7); NEUTROPHILS % (AUTO) 64.3 % (33-66); RED BLOOD COUNT 3.53 M/MM3 (4.00-5.20); WBC - WHITE BLOOD COUNT 8.4 T/MM3 (4.5-11.0)
[2016-08-24 05:30] LABS: ALBUMIN 3.7 G/DL (3.5-5.0); ALBUMIN/GLOBULIN RATIO 1.5 RATIO (1.1-2.2); ALKALINE PHOSPHATASE 77 U/L (38-126); ALT (SGPT) 46 U/L (9-52); ANION GAP 11 MEQ/L (5-15); AST (SGOT) 50 U/L (14-36); BUN/CREATININE RATIO 20 RATIO (6-26); CHLORIDE 98 MEQ/L (98-107); CO2 - CARBON DIOXIDE 28 MEQ/L (22-30); CREATININE 0.7 MG/DL (0.7-1.2); GLOMERULAR FILTRATION RATE 82; GLUCOSE 93 MG/DL (65-110); MAGNESIUM 2.1 MG/DL (1.6-2.3); POTASSIUM 3.7 MEQ/L (3.6-5); SODIUM 137 MEQ/L (134-144); TOTAL PROTEIN 6.1 G/DL (6.3-8.2)
--- NOTE | 2016-08-24 05:35 | NUR ---
SHIFT SUMMARY: PT IS A&OX3, ON 1L OXYGEN NC BEGINNING OF MY SHIFT, NOW ON 2L (SEE PREVIOUS NURSE NOTE), FAMILY AND FRIENDS PRESENT AT SHIFT CHANGE LAST NIGHT, PT DENIES PAIN OR NAUSEA OR SOA, UP WITH 1 AND GATE BELT, HAS AN INDWELLING CANSECO CATHETER THAT IS PATENT AND DRAINS WELL, IV LOCKED, LEGS AND ARMS VERY RESTLESS AT 22:52 (SEE PREVIOUS NURSE NOTE). CALL LIGHT WITHIN REACH, BED ALARM ON.
[2016-08-24] MEDS: LEVOTHYROXINE 50 MCG TABLET PO SCH (05:46)
[2016-08-24] MEDS: PANTOPRAZOLE 40 MG TABLET PO SCH (05:46)
[2016-08-24] MEDS: LOSARTAN 50 MG TABLET PO SCH (08:53)
[2016-08-24] MEDS: PRAMIPEXOLE 0.25 MG TABLET PO SCH ×3 (08:53→20:39)
[2016-08-24] MEDS: ASPIRIN *EC* 81mg TABLET PO SCH (08:53)
[2016-08-24] MEDS: NICOTINE 14 MG PATCH TD PRN (08:53)
[2016-08-24] MEDS: ATENOLOL 100 MG TABLET PO SCH ×2 (08:53→20:39)
[2016-08-24] MEDS: NICOTINE PATCH REMOVAL TD SCH (08:54)
--- NOTE | 2016-08-24 10:10 | NUR ---
OXYGEN/AMBULATION PATIENT WEANED TO RA THIS AM. O2 MONITORED WHILE AMBULATING IN HALLWAY. O2 SATURATION BETWEEN 89%-93% WHILE WALKING. PATIENT AMBULATED FROM RM 155 TO SITTING AREA AT END OF [facility] HALLWAY AND BACK TO ROOM. DENIES SOA. REMAINS ON RA.
[2016-08-24] MEDS ORDERED: SALINE NASAL SPRAY 45ml EA NOSTRIL PRN (16:45)
--- NOTE | 2016-08-24 18:08 | PNPDOC ---
Subjective Date DATE: 08/24/16 TIME: 17:33 Subjective Physical seen with her brother at the bedside today. She reports that she slept well last night and has had only minor jerking in her arms and legs this morning lasting about 1 hour. The pain she experienced in her legs prior to hospitalization is gone and she reports it felt like griffith splints that were very severe. She feels like she is making progress. Edema in her legs is improved significantly and she did not need oxygen overnight by patient report although nursing indicates nocturnal oxygen last night and borderline hypoxia with ambulation earlier today. Brief episode of bradycardia with heart rate into the 30s overnight-patient asymptomatic. Nursing additionally reported that the patient had mild agitation and thrashing of her arms and legs about 10 PM last night which subsided after one Citra was administered. Mrs. Gonzalez denies dyspnea this morning, denies chest pain or palpitations and reports her appetite is fair. Objective Vital Signs Vital signs Vital Signs Date Time Temp Pulse Resp B/P Pulse Ox O2 Delivery O2 Flow Rate FiO2 08/24/16 15:42 82 08/24/16 15:32 22 91 08/24/16 15:28 98.2 124/54 Room Air 08/24/16 08:45 2.00 I/O 4849/4625 - cumulative Weight down 0.9 kg from admission EXAM General-NAD, alert HEENT-conjunctiva clear, sclera anicteric Lungs-respirations nonlabored with good airflow, breath sounds clear Cardiac-regular rhythm, S1-S2 Abd-soft, nontender, without palpable mass, bowel sounds present Ext-trace edema bilateral lower extremities Neuro-no myoclonus noted during my exam today, moving all extremities symmetrically/normally Psych-calm, cooperative, euthymic - Height (Feet): 5 Height (Inches): 4.00 Weight (Kilograms): 92.600 Laboratory Laboratory Laboratory Tests 08/22/16 22:11 08/23/16 00:54 08/23/16 08:44 08/23/16 18:36 08/24/16 04:21 Laboratory Tests 08/22/16 22:11 08/23/16 08:44 08/23/16 21:34 08/24/16 04:21 Bilirubin 1.4, AST 50 Iron studies, B-12 pending Urine drug screen positive for opiates-explained by medications administered in the ER EKG Telemetry strips reviewed-sinus rhythm with marked bradycardia versus sinus pauses very briefly at about 4:30 overnight-rate 30s for several seconds Assessment & Plan Assessment Altered mental status/metabolic encephalopathy-improved Myoclonus-improving Hypoxia-new Elevated troponin Bradycardia, transient Microcytic anemia Hyponatremia-resolved Restless leg syndrome Chronic diastolic CHF COPD Piper's esophagus Chronic hemorrhoid/constipation Clinically improving with decreased pain in her legs and myoclonic jerking. Edema has improved and encephalopathy/confusion is significantly improved although minor symptoms persisted yesterday evening. PT evaluation reports high risk of falls. Transient bradycardia versus sinus pauses present overnight- continue telemetry. 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 Sleep significantly improved since hospitalization and sleep disruption probable factor in presenting encephalopathy in conjunction with medications. Discharge weight in June was 93.7 kg with a current weight essentially the same. Iron studies are pending, hemoglobin just above 8 after transfusion with significant microcytosis. Iron dextran to be given today with additional doses if iron deficiency confirmed. Bilirubin slightly elevated, LDH to be screened in conjunction with reticulocyte count; no specimen hemolysis reported. New onset hypoxia, continue diuresis. Recheck BNP in a.m. Edwards catheter placed with return of 1300 mL urine. Neuro-consultation as outpatient later this week as previously scheduled. Plan/Intensity of Service Telemetry strips reviewed by myself, laboratory data reviewed. Discussed with nursing and brother. Code Status Full Code, unverified Hospital Course Summary Disclaimer The hospital course summary below is not to be considered part of the above Progress Note. Hospital Course Summary 08/23/16 Mrs. Gonzalez presents combination of increasing edema, myoclonic jerking, and pain in her lower extremities which has worsened significantly over the past week. Confusion was described prior to ER assessment by her but worsened significantly following administration of Ativan and myoclonus increased following administration of the benzo as well. At present the patient is minimally responsive but neurological exam is nonfocal and she is hemodynamically stable. She appears to be sleeping soundly and will be permitted to do so but monitored closely. Anemia may be aggravating neurological symptoms and iron deficiency is likely based on MCV and known chronic rectal bleeding due to hemorrhoids. Past records indicate colonoscopy within the past couple of years demonstrating angiodysplasia in addition to hemorrhoids and she's had several EGDs in the past 5 years old demonstrating Piper's. Iron studies are pending and patient may benefit from IV iron while hospitalized. One unit of blood to be transfused today. New onset hypoxia, continue diuresis. Chest x-ray unremarkable in the ER; but known history CHF with increased lower extremity edema and weight gain described prior to admission. BNP elevated. Edwards catheter placed with return of 1300 mL urine. Neuro-consultation may be needed for neuropathy/myoclonus (noted the patient is scheduled for outpatient neuro-evaluation in [place]) Suspect recent insomnia contributing to confusion prior to admission but hyponatremia may be a factor as well. Preceding depressive symptoms may require formal evaluation depending on significance when patient is able to provide direct history. 08/24/16 Clinically improving with decreased pain in her legs and myoclonic jerking. Edema has improved and encephalopathy/confusion is significantly improved although minor symptoms persisted yesterday evening. PT evaluation reports high risk of falls. Transient bradycardia versus sinus pauses present overnight- continue telemetry. 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 Sleep significantly improved since hospitalization and sleep disruption probable factor in presenting encephalopathy in conjunction with medications. Discharge weight in June was 93.7 kg with a current weight essentially the same. Iron studies are pending, hemoglobin just above 8 after transfusion with significant microcytosis. Iron dextran to be given today with additional doses if iron deficiency confirmed. Bilirubin slightly elevated, LDH to be screened in conjunction with reticulocyte count; no specimen hemolysis reported. New onset hypoxia, continue diuresis. Recheck BNP in a.m. Edwards catheter placed with return of 1300 mL urine. Neuro-consultation as outpatient later this week as previously scheduled. PK JAQUEZ MD August 24, 2016 17:43
[2016-08-24] MEDS ORDERED: IRON DEXTRAN 100mg/2ml INJECTION IV ONE ×2 (18:30→19:00)
[2016-08-24 18:34] LABS: ABSOLUTE RETICS # 0.0891 T/MM3 (0.0300-0.0900); RETICULOCYTE % 2.6 % (0.6-1.7); RETICULOCYTE HGB 18.3 PG (30.8-36.6)
--- NOTE | 2016-08-24 19:37 | NUR ---
SHIFT SUMMARY VSS. WEANED TO RA THIS AM. AMBULATED IN HALLWAY WITH NURSING STAFF, SEE PREVIOUS NOTE. GOOD APPETITE AND INTAKE. GOOD URINE OUTPUT. NO BM TODAY. TEST DOSE OF IRON ADMINISTERED BY THIS NURSE AT END OF SHIFT, NO ADVERSE REACTION THUS FAR, TOLERATING WELL. RN DISCUSSED S/S TO REPORT, DAUGHTER IN ROOM FOR THIS. UP TO CHAIR FOR MOST OF DAY. BED AND CHAIR ALARMS IN USE.
--- NOTE | 2016-08-24 20:31 | NUR ---
IV IRON ADMINISTRATION: DAY SHIFT RN, ANJEL, ADMINISTERED 1ST DOSE IRON (15 MIN VITALS FIRST HOUR); PT'S BLOOD PRESSURE INCREASED SLIGHTLY. SENT TIGER TEXT, REC'D CALL BACK FROM DR. MAGALLANES WHO SAID THAT I MAY ADMIN 2ND DOSE OF IRON IV. WILL CONTINUE TO MONITOR PT'S VITALS FOR AN HOUR AFTER ADMIN PER DOCTOR'S ORDER.
[2016-08-24] MEDS: HYDROCODONE/APAP 5 mg/325 mg TABLET PO PRN (22:33)
[2016-08-25] VITALS (15 sets, daily range): BP systolic 127–166; BP diastolic 59–76; PULSE 69–103; RESP 16–18; TEMP 97.5–98; O2SAT 86–97
[2016-08-25] MEDS ORDERED: POLYETHYL.GLYCOL 3350 PACKET 17gm PO PRN (00:45)
[2016-08-25] MEDS ORDERED: ZOLPIDEM 5 MG TABLET PO PRN (00:45)
--- NOTE | 2016-08-25 01:11 | NUR ---
SLEEP AIDE & STOOL SOFTENER: PT REQUESTED STOOL SOFTENER AND SLEEP AIDE. SENT TIGER TEXT, REC'D CALL BACK FROM DR. MAGALLANES WHO ASKED ME TO PLACE AN ORDER OR AMBIEN AND MIRALAX (SEE EMAR). PUT IN ORDER, AND ADMINISTERED BOTH MEDS.
[2016-08-25 01:43] LABS: TOTAL IRON BINDING CAPACITY 471 UG/DL (261-497)
[2016-08-25 02:22] LABS: IRON 13 UG/DL (37-170)
[2016-08-25] MEDS: ALBUTEROL/IPRATROPIUM INHAL. 2.5mg-0.5mg/3ml Neb. AEROSOL SCH ×3 (02:26→15:09)
[2016-08-25 03:00] LABS: FERRITIN 6.37 NG/ML (11-264)
[2016-08-25 03:31] LABS: FOLATE > 20.0 NG/ML (2.76-20); VITAMIN B12 - BATCH 975 PG/ML (239-931)
--- NOTE | 2016-08-25 04:36 | NUR ---
SHIFT SUMMARY: PT IS A&OX3, FRIEND IN ROOM AT BEGINNING OF MY SHIFT; TOOK VITALS Q15 MINUTES FOR FIRST HOUR AFTER DAY SHIFT RN (ANJEL) ADMIN FIRST DOSE OF IRON, SLIGHT INCREASE IN BLOOD PRESSURE (SEE NURSE NOTE). ADMIN SECOND DOSE OF IRON. PT ON RA, BUT 1L OXYGEN NC AT NIGHT, PT DENIES PAIN OR NAUSEA OR SOA, UP WITH 1 AND GATE BELT, AMBULATED WITH AIDE IN HALLWAYS; PT REQUESTED SLEEP AIDE AND MIRALAX - SENT TIGER TEXT (SEE EARLIER NURSE NOTE), PT DID NOT SLEEP WELL - UP ALL NIGHT, HAS AN INDWELLING CANSECO CATHETER THAT IS PATENT AND DRAINS WELL, IV LOCKED, LEGS AND ARMS VERY RESTLESS. CALL LIGHT WITHIN REACH, BED ALARM ON.
[2016-08-25 05:22] LABS: BASOPHILS % (AUTO) 0.2 % (0-2); EOSINOPHILS # (AUTO) 0.2 T/MM3 (0-0.5); EOSINOPHILS % (AUTO) 2.5 % (0-4); HCT - HEMATOCRIT 26.4 % (36-46); HGB - HEMOGLOBIN 8.1 GM/DL (12-16); IMMATURE GRANULOCYTE # (AUTO) 0.02 T/MM3 (0.00-0.03); IMMATURE GRANULOCYTE % (AUTO) 0.2 % (0.0-0.5); LYMPHOCYTES # (AUTO) 1.5 T/MM3 (1-4.8); LYMPHOCYTES % (AUTO) 16.3 % (23-45); MEAN CORPUSCULAR HGB 22.9 UUG (26-34); MEAN CORPUSCULAR HGB CONC(MCHC 30.7 GM/DL (31-37); MEAN CORPUSCULAR VOLUME 74.8 UM3 (80-100); MEAN PLATELET VOLUME 10.4 UM3 (9.4-12.4); MONOCYTES # (AUTO) 0.9 T/MM3 (0-0.8); MONOCYTES % (AUTO) 10.5 % (0-9.0); NEUTROPHILS #(AUTO)-ABSOLUTE 6.2 T/MM3 (1.8-7.7); NEUTROPHILS % (AUTO) 70.3 % (33-66); RED BLOOD COUNT 3.53 M/MM3 (4.00-5.20); WBC - WHITE BLOOD COUNT 8.9 T/MM3 (4.5-11.0)
[2016-08-25 05:31] LABS: ANION GAP 11 MEQ/L (5-15); BUN/CREATININE RATIO 22 RATIO (6-26); CALCIUM 9.5 MG/DL (8.4-10.2); CHLORIDE 99 MEQ/L (98-107); CO2 - CARBON DIOXIDE 26 MEQ/L (22-30); CREATININE 0.6 MG/DL (0.7-1.2); GLOMERULAR FILTRATION RATE 98; GLUCOSE 127 MG/DL (65-110); LDH 458 U/L (313-618); SODIUM 136 MEQ/L (134-144)
[2016-08-25] MEDS: LEVOTHYROXINE 50 MCG TABLET PO SCH (05:41)
[2016-08-25] MEDS: PANTOPRAZOLE 40 MG TABLET PO SCH (05:42)
[2016-08-25] MEDS: ASPIRIN *EC* 81mg TABLET PO SCH (09:07)
[2016-08-25] MEDS: ATENOLOL 100 MG TABLET PO SCH (09:07)
[2016-08-25] MEDS: LOSARTAN 50 MG TABLET PO SCH (09:07)
[2016-08-25] MEDS: PRAMIPEXOLE 0.25 MG TABLET PO SCH ×2 (09:07→14:34)
[2016-08-25] MEDS: NICOTINE PATCH REMOVAL TD SCH (09:08)
[2016-08-25] MEDS: NICOTINE 14 MG PATCH TD PRN (09:08)
[2016-08-25] MEDS ORDERED: IRON DEXTRAN IV ONE (14:00)
[2016-08-25] MEDS ORDERED: NORMAL SALINE IV ONE (14:00)
--- NOTE | 2016-08-25 14:25 | NUR ---
CM THIS WORKER SPOKE WITH PT. SHE SAID SHE IS GOING TO BE RELEASED TODAY SO SHE CAN GET TO HER OUTPT APPOINTMENT TOMORROW. THIS WORKER ASKED IF SHE WILL HAVE ANY NEED FOR HOME HEALTH OR ANY DME. PT DECLINED BOTH OF THESE. SHE SAID SHE HAS ENOUGH DME (WALKER, CANES, SHOWER CHAIR, NEBULIZER) AND DOES NOT NEED HOME HEALTH. THIS WORKER PROVIDED HER WITH CONTACT INFO AND ENCOURAGED HER TO CALL IF QUESTIONS/NEEDS DO ARISE. Addendum: 08/25/16 at 1428 by JULIO ESCALANTE Amended: Links added.
[2016-08-25] MEDS ORDERED: MIRT7.5T11 PO (17:17)
[2016-08-25] MEDS ORDERED: POLY17PO18 PO (17:17)
[2016-08-25] MEDS ORDERED: HYDR-4246 PO (17:17)
[2016-08-25] MEDS ORDERED: NICO1PAT15 TD (17:42)
--- NOTE | 2016-08-25 18:05 | NUR ---
Chronic Anemia: Will give TDI (Total Dose Infusion) over 4 hours. Actual body weight = 92.5 kg Hgb Level = 8.1 g/dL Calculated Dosing weight = 55 kg Total dose needed: 1,500 mg (30 mL) No test dose given. Patient received Iron Dextran test dose and dose with no adverse reaction on 08/24/16 Will give full dose in NS 500ml TRA 125ml/hr. Watch VS q 1 hr during infusion. Thank you, Alena Mccoy [facility]
--- NOTE | 2016-08-25 19:17 | DSPDOC ---
General Date Date DATE: 08/25/16 TIME: 18:46 Attending Physician Marisol Patel MD Admitting Physician Marisol Patel MD Consulting Physician Admitting Diagnosis Leg pain/restlessness Discharge Diagnosis Altered mental status/metabolic encephalopathy-due to insomnia/alprazolam Myoclonus-improving Hypoxia-resolved Elevated troponin-minor Bradycardia, transient Profound iron deficiency anemia Hyponatremia-resolved Restless leg syndrome Chronic diastolic CHF COPD Piper's esophagus Chronic hemorrhoids/constipation Laboratory Laboratory Tests Test 08/24/16 15:10 08/25/16 04:18 Lab Scanned Report REFERENCE [id number] White Blood Count 8.9T/MM3 (4.5-11.0) Red Blood Count 3.53M/MM3 (4.00-5.20) Hemoglobin 8.1GM/DL (12-16) Hematocrit 26.4% (36-46) Mean Corpuscular Volume 74.8UM3 (80-100) Mean Corpuscular Hemoglobin 22.9UUG (26-34) Mean Corpuscular Hemoglobin Concent 30.7GM/DL (31-37) RDW Standard Deviation 48.8FL (36.9-50.2) Platelet Count 192T/MM3 (130-400) Mean Platelet Volume 10.4UM3 (9.4-12.4) Immature Granulocyte % (Auto) 0.2% (0.0-0.5) Neutrophils (%) (Auto) 70.3% (33-66) Lymphocytes (%) (Auto) 16.3% (23-45) Monocytes (%) (Auto) 10.5% (0-9.0) Eosinophils (%) (Auto) 2.5% (0-4) Basophils (%) (Auto) 0.2% (0-2) Absolute Immature Granulocyte (auto 0.02T/MM3 (0.00-0.03) Absolute Neutrophils (auto) 6.2T/MM3 (1.8-7.7) Absolute Lymphocytes (auto) 1.5T/MM3 (1-4.8) Absolute Monocytes (auto) 0.9T/MM3 (0-0.8) Absolute Eosinophils (auto) 0.2T/MM3 (0-0.5) Absolute Basophils (auto) 0.0T/MM3 (0-0.2) Turbidity < 20 (0-20) Sodium Level 136MEQ/L (134-144) Potassium Level 4.0MEQ/L (3.6-5) Chloride Level 99MEQ/L (98-107) Carbon Dioxide Level 26MEQ/L (22-30) Anion Gap 11MEQ/L (5-15) Blood Urea Nitrogen 13.0MG/DL (7-17) Creatinine 0.6MG/DL (0.7-1.2) Glomerular Filtration Rate Calc 98 BUN/Creatinine Ratio 22RATIO (6-26) Glucose Level 127MG/DL (65-110) Calculated Osmolality 264MOSM/KG (261-280) Calcium Level 9.5MG/DL (8.4-10.2) Icterus Index < 2 (0-7) Lactate Dehydrogenase 458U/L (313-618) Chemistry Specimen Hemolysis < 15 (0-25) Admission labs on 08/22 included a white count of 8.5 with hemoglobin 7.3 with MCV 73.0 and platelet count 216,000. ProBNP was modestly elevated at 1380 on admission, sodium 128, creatinine 0.6. Serum iron 13, TIBC of 471, ferritin 6.73, vitamin B-12 975, folic acid > 20, percent reticulocytes was 2.6%-slightly above normal Urine drug screen positive for opiates but otherwise negative. Radiology Chest x-ray on admission revealed no cardiopulmonary abnormalities. Right lower extremity venous Doppler was negative for DVT on 08/22. CT of the abdomen and pelvis on admission demonstrated minimal right-sided pleural thickening, probable noncalcified gallstone but no ductal dilatation; all bladder valdez were questionably thickened. Liver was unremarkable as was pancreas. Fairly extensive atherosclerotic changes seen within the aorta and iliac vessels. CT of the head on 08/23 demonstrated chronic left maxillary sinus disease, generalized atrophy as seen in 2015; no acute changes. History of Present Illness This is a 70 y/o female with multiple medical problems who had onset of "leg pain" for the past 1 week. right greater than left. This patient has had difficulties with this in the past but worse today. The patient had a right femoral artery angioplasty recently. Because of the worsening pain the patient presents to the ED tonight for further assessment. The patient had multiple other vague complaints including abdomen bloating and aching. The patient had venous US of both legs without evidence of clots. ED provider was able to palpate pulses in both extremities and appear to be strong. The patient had a CT of the abdomen with IV contrast that essentially did not demonstrate an acute process (chronic gallbladder wall thickening) The patient had a significant cardiac workup 06/18 including an echocardiogram demonstrated left atrial enlargement, EF 79%, mod pulmonary HTN, diastolic dysfunction and a right pleural effusion. A heart cath at the same time did not demonstrate occlusive disease and no stents were placed. Tonight the patient had cardiac markers drawn which demonstrated a troponin of .112 repeat .106. The patient denied chest pain or increased shortness of breath. There had been sign pulm vascular congestion perviously with a right pleural effusion . CXR tonight demonstrates resolution of effusion with only mild increased pulm vasculature. At this time there are 3 main issues occurring. The dysethetic symptoms of the legs and arms that have escalated. No new meds to account except for atarax which is H1 [place] and only one dose. Ativan the ED did not improve symptoms of the patient and actually caused increased flailing of the arms and legs and worsening confusion/agitation. Minor elevation of troponin. This is a real number but fortunately is not escalating. 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 MIld worsening of diastolic heart disease. Hospital Course Altered mental status/metabolic encephalopathy-due to insomnia/alprazolam Myoclonus-improving Hypoxia-resolved Elevated troponin-minor Bradycardia, transient Profound iron deficiency anemia Hyponatremia-resolved Restless leg syndrome Chronic diastolic CHF COPD Piper's esophagus Chronic hemorrhoids/constipation Obesity, BMI 35 08/23/16 Mrs. Gonzalez presents combination of increasing edema, myoclonic jerking, and pain in her lower extremities which has worsened significantly over the past week. Confusion was described prior to ER assessment by her but worsened significantly following administration of Ativan and myoclonus increased following administration of the benzo as well. At present the patient is minimally responsive but neurological exam is nonfocal and she is hemodynamically stable. She appears to be sleeping soundly and will be permitted to do so but monitored closely. Anemia may be aggravating neurological symptoms and iron deficiency is likely based on MCV and known chronic rectal bleeding due to hemorrhoids. Past records indicate colonoscopy within the past couple of years demonstrating angiodysplasia in addition to hemorrhoids and she's had several EGDs in the past 5 years old demonstrating Piper's. Iron studies are pending and patient may benefit from IV iron while hospitalized. One unit of blood to be transfused today. New onset hypoxia, continue diuresis. Chest x-ray unremarkable in the ER; but known history CHF with increased lower extremity edema and weight gain described prior to admission. BNP elevated. Edwards catheter placed with return of 1300 mL urine. Neuro-consultation may be needed for neuropathy/myoclonus (noted the patient is scheduled for outpatient neuro-evaluation in [place]) Suspect recent insomnia contributing to confusion prior to admission but hyponatremia may be a factor as well. Preceding depressive symptoms may require formal evaluation depending on significance when patient is able to provide direct history. Troponin has trended down progressively and family prefers follow-up with yard conductor but they typically see in [place]. 08/24/16 Clinically improving with decreased pain in her legs and myoclonic jerking. Edema has improved and encephalopathy/confusion is significantly improved although minor symptoms persisted yesterday evening. PT evaluation reports high risk of falls. Transient bradycardia versus sinus pauses present overnight- continue telemetry. Will discuss with patient/ when he is available to determine if cardiology consultation should be pursued here (patient's managing yard conductor is in [place]). Sleep significantly improved since hospitalization and sleep disruption probable factor in presenting encephalopathy in conjunction with medications. Discharge weight in June was 93.7 kg with a current weight essentially the same. Iron studies are pending, hemoglobin just above 8 after transfusion with significant microcytosis. Iron dextran to be given today with additional doses if iron deficiency confirmed. Bilirubin slightly elevated, LDH to be screened in conjunction with reticulocyte count; no specimen hemolysis reported. New onset hypoxia-intermittently using 1 L supplemental O2, continue diuresis. Edwards catheter placed with return of 1300 mL urine. Neuro-consultation as outpatient later this week as previously scheduled. 08/25/16-discharge Mrs. Gonzalez reports that she didn't sleep well again last night. With further discussion she acknowledges that she has a lot of anxiety and a lot of thoughts going through her head that interfere with sleep. She is very reluctant to try additional sleep medications as she indicates that she's been tried on everything and nothing helped including [place] and Ambien last night. I advised her that her previously asked about something for depression and that low-dose mirtazapine may help manage anxiety, depression and help with sleep. She indicated willingness to at least try the medication for short-term. Anxiety evident throughout the day as I visited with them on several occasions. Iron studies confirm profound iron deficiency, we'll proceed with an additional infusion of IV dextran to replace iron stores today. 1500 mg infusion initiated in addition to the 100 mg dose she was given yesterday. With repetitive blood pressure monitoring during the initial hour of the infusion patient complained of increased jerking in her right arm (side of BP cuff) which subsided when blood pressures were no longer being monitored actively. Calcium level normal. Edwards catheter discontinued earlier today, urine volume low but has not had Lasix in 36 hours. Resume usual home dose of Lasix. Mrs. Gonzalez also complains of minor cough and congestion but breath sounds are clear as is the oropharynx. I advised her that I don't see any indication for antibiotics at this time. She indicated that she is having minimal spasms or jerking in her legs and is having no pain in her legs at this time. Rhythm strips reviewed-the patient again had very transient bradycardia lasting 2 beats last night. Patient wishes to pursue further evaluation in [place] so copies of the rhythm strips were made for her to drop off with her yard conductor tomorrow when she is in [place] for neurology appointment. All home medications have been resumed with addition of nicotine patches to encourage smoking cessation, mirtazapine 7.5 mg daily at bedtime, MiraLAX to minimize constipation, and [place] 5 if needed for recurrent leg pain. Patient is asked to follow up with Dr. Otto for neurological evaluation tomorrow and with Dr. Mendez in approximately one week. She is aware that she is at risk for some chronic blood loss due to presence of Piper's esophagus, angiodysplasia in her colon and chronic constipation/hemorrhoids. She may need repeat endoscopic studies if hemoglobin begins to drop again and should probably have hemoglobin checked monthly or every other month in the foreseeable future. Furthermore she is advised that she will need to resume oral iron at some point in the future. >30 minutes spent on patient care and discharge care coordination today on the date of discharge. -- Problems: Code Status Full Code, unverified Home Meds Active Scripts Nicotine (Nicotine Patch 14 mg/24 hr) 1 Each Patch.td24, 14 MG TD DAILY for 28 Days Prov:MARISOL PATEL MD 08/25/16 Hydrocodone/Acetaminophen ([place] 5-325 Tablet) 5-325 Tablet, 1 TAB PO Q6H Y for PAIN, #20 TAB Prov:MARISOL PATEL MD 08/25/16 Mirtazapine (Mirtazapine) 7.5 Mg Tablet, 7.5 MG PO HS, #30 Prov:MARISOL PATEL MD 08/25/16 Polyethylene Glycol 3350 (Healthylax) 17 Gm Powd.pack, 17 G PO DAILY for 30 Days Prov:MARISOL PATEL MD 08/25/16 Hydroxyzine Pamoate (Hydroxyzine Pamoate) 25 Mg Capsule, 1 CAP PO TID for 5 Days , #[address] Sampson Dawson Child Welfare Social Worker [facility] [address] [facility] [phone] Prov:ANGELA GARCIA APRN 08/22/16 Ipratropium/Albuterol Sulfate (Iprat-Albut 0.5-3(2.5) mg/3 ml) 3 Ml Ampul.neb, 3 ML AEROSOL QID Y for SHORTNESS OF AIR/WHEEZING, #50 Prov:MARISOL PATEL MD 06/22/16 Losartan Potassium (Cozaar) 25 Mg Tablet, 25 MG PO DAILY for HYPERTENSION for 30 Days Prov:MARISOL PATEL MD 06/22/16 Benzonatate (Benzonatate) 200 Mg Capsule, 200 MG PO TID Y for COUGH, #20 CAP Prov:MARISOL PATEL MD 06/22/16 Furosemide (Furosemide) 20 Mg Tablet, 20 MG PO DAILY for 28 Days, #28 TAB Prov:MARISOL PATEL MD 06/22/16 Reported Medications [Herbal Lax] No Conflict Check, 2 TAB PO HS 06/19/16 Resveratrol/Quercetin (Resveratrol Plus 100 mg Tablet) 1 Each Tablet, 1 TAB PO DAILY 06/19/16 Vitamin B Complex (Vitamin B Complex) 1 Each Capsule, 1 CAP PO DAILY 03/11/16 Gemfibrozil (Gemfibrozil) 600 Mg Tablet, 600 MG PO BID 03/26/15 Pramipexole Di-HCl (Pramipexole Dihydrochloride) 0.25 Mg Tablet, 0.25 MG PO TID 03/26/15 Levothyroxine Sodium (Levothyroxine Sodium) 50 Mcg Tablet, 50 MCG PO ACB 03/26/15 Tiotropium [place] (Spiriva) 18 Mcg Cap.w.dev, 1 PUFF INH DAILY 03/08/13 Estradiol (Estradiol) 1 Mg Tablet, 1 MG PO HS 03/08/13 Aspirin (Aspir 81) 81 Mg Tablet.dr, 81 MG PO DAILY 03/11/10 Atenolol (Atenolol) 100 Mg Tablet, 100 MG PO BID 12/13/08 Esomeprazole Mag Trihydrate (Nexium) 40 Mg Capsule.dr, 40 MG PO DAILY 12/13/08 Discontinued Scripts Nicotine (Nicotine Patch 21 mg/24hr) 1 Each Patch.td24, 1 REMOVAL TD DAILY Y for nicotine withdrawl for 14 Days Prov:MARISOL PATEL MD 06/22/16 Face to Face Encounter I met with patient on the day of dismissal and discussed follow up appointments , medications, and safety plan. Discharge Disposition Home Copies To 1: KEVIN MENDEZ DO Documentation Requirements CHF Type and Acuity Type of CHF: Diastolic Acuity CHF: Chronic Anemia Anemia Etiology: Iron Deficiency Anemia Acuity: Chronic BMI Low or High Assoc. dx for low or high BMI: Severe Obesity 35-39.9 MARISOL PATEL MD August 25, 2016 18:51
--- NOTE | 2016-08-25 19:20 | NUR ---
DISMISSAL PT DISMISSED TO HOME VIA WHEELCHAIR WITH AT [facility]. PT BELONGINGS PACKED, GO HOME INSTRUCTIONS GIVEN, SCRIPTS SENT TO PHARMACY. PT DRESSED AND IVL PULLED.
[2016-08-25] MEDS ORDERED: MIRTAZAPINE 15 MG TABLET PO SCH (22:00)
--- NOTE | 2016-08-26 14:49 | NUR ---
ATTEMPTED POST [facility] FOLLOW UP PHONE CALL #1, NO ANSWER, NO ANSWER MACHINE
== END 2016-08-25 19:15 | disposition home or self-care (01) | DRG 71 ==
LOC: ED 21:15 → EDHOLD 08-23 02:12 → MED 08-23 02:45
PROVIDERS: ADMIT Emergency Medicine; ATTEND Internal Medicine
PROC: 30233N1 Transfusion of Nonautologous Red Blood Cells into Peripheral Vein, Percutaneous Approach (ICD-10-PCS; principal; 2016-08-23)
DX: G93.41 Metabolic encephalopathy (principal); I50.32 Chronic diastolic (congestive) heart failure; E87.1 Hypo-osmolality and hyponatremia; G25.3 Myoclonus; D50.9 Iron deficiency anemia, unspecified; R09.02 Hypoxemia; G47.00 Insomnia, unspecified; R79.89 Other specified abnormal findings of blood chemistry; R20.8 Other disturbances of skin sensation; I73.9 Peripheral vascular disease, unspecified; J44.9 Chronic obstructive pulmonary disease, unspecified; Z66 Do not resuscitate; I25.10 Atherosclerotic heart disease of native coronary artery without angina pectoris; E78.5 Hyperlipidemia, unspecified; I27.2 Other secondary pulmonary hypertension; E03.9 Hypothyroidism, unspecified; K21.9 Gastro-esophageal reflux disease without esophagitis; E66.01 Morbid (severe) obesity due to excess calories; G25.81 Restless legs syndrome; K22.70 Barrett's esophagus without dysplasia; K59.00 Constipation, unspecified; K64.9 Unspecified hemorrhoids; Z79.82 Long term (current) use of aspirin; Z79.4 Long term (current) use of insulin; Z68.35 Body mass index [BMI] 35.0-35.9, adult
CPT/HCPCS: 36415; 80048; 80053; 80306; 82607; 82728; 82746; 82948; 83540; 83550; 83615; 83735; 83880; 84443; 84484; 85018; 85025; 85045; 86850; 86900; 86901; 86922; 93005; 94640; 96361; 96374; 96375; 99406